=== PATIENT | female | born 1955 | race Caucasian/White ===

== ENCOUNTER 2018-02-11 12:00 | Outpatient (REF) | payer MEDICAID, SELFPAY ==
[2018-02-11 22:20] LABS: TSH 2.56 uIU/mL (0.358-3.74)
== END 2018-02-11 12:20 ==
LOC: NCHCN 12:00
PROVIDERS: PCP Internal Medicine; Visit Provider Internal Medicine
DX: R53.83 Other fatigue (principal)
CPT/HCPCS: 84436; 84439; 84443

== ENCOUNTER 2018-03-26 09:13 | Outpatient (REF) | payer MEDICAID, SELFPAY ==
[2018-03-26 13:54] LABS: Anion Gap 10.1 mmol/L (3-11); BUN 14 mg/dL (7-18); CO2 28.9 mmol/L (21.0-32.0); CREATININE 1.07 mg/dL (0.55-1.02); Calcium 9.2 mg/dL (8.5-10.1); Chloride 102 mmol/L (98-107); Estimated GFR 51.63 (mL/min/1.73m2); Glucose 129 mg/dL (70-100); Potassium 3.8 mmol/L (3.5-5.1); Sodium 141 mmol/L (136-145); TSH 0.03 uIU/mL (0.358-3.74)
[2018-03-27 16:10] LABS: T3,Free 8.2 pg/ml (2.8-5.3)
[2018-03-28 11:34] LABS: Hepatitis C Ab w Rflx HCV PCR Negative (NEGAT)
== END 2018-03-26 09:33 ==
LOC: NCHCN 09:13
PROVIDERS: PCP Internal Medicine; Visit Provider Internal Medicine
DX: E03.9 Hypothyroidism, unspecified (principal); I48.0 Paroxysmal atrial fibrillation; Z11.59 Encounter for screening for other viral diseases; Z00.00 Encounter for general adult medical examination without abnormal findings
CPT/HCPCS: 80048; 86803; 84439; 84443; 84481

== ENCOUNTER 2018-04-24 01:52 | Outpatient (CLI) | payer MEDICAID, SELFPAY ==
--- NOTE | 2018-04-24 09:39 | DI.COMBO_ITS ---
SYMPTOM/DIAGNOSIS: LT BREAST LUMP, DIAGNOSTIC LEFT MAMMOGRAM AND LEFT BREAST ULTRASOUND: Mammograms were interpreted according to the usual protocol including computer analysis with CAD system, tomosynthesis and C view imaging. Comparison is made with prior examinations. Breast density, category B. There are multiple, well circumscribed, round nodules scattered in the left breast. These appear stable. No areas of architectural distortion or suspicious microcalcifications are seen. The skin and axilla are unremarkable. A left breast ultrasound was performed of the upper outer quadrant. There are multiple simple cysts scattered throughout the left breast. The largest measures 2.2 cm. and corresponds to the palpable abnormality. No suspicious solid masses are seen sonographically. IMPRESSION: No evidence for malignancy. Yearly mammography is recommended. Category 2. The findings were discussed with the patient on the date of the examination. MQSA ASSESSMENT OF FINDINGS: Negative with benign findings. Category 2. Patient will receive a letter notifying them of these results. BI-RADS category B. There are scattered areas of fibroglandular density.
== END 2018-04-24 02:12 ==
PROVIDERS: PCP Internal Medicine; Visit Provider Nurse Practitioner
DX: N63.21 Unspecified lump in the left breast, upper outer quadrant (principal); N60.12 Diffuse cystic mastopathy of left breast
CPT/HCPCS: 76642; 77061; 77065; G0279

== ENCOUNTER 2018-11-27 14:12 | Outpatient (REF) | payer MEDICARE, MEDICAID, SELFPAY ==
[2018-11-27 21:41] LABS: ALT 30 U/L (12-78); AST 18 U/L (15-37); Alkaline Phosphatase 88 U/L (46-116); Anion Gap 8.8 mmol/L (3-11); BUN 16 mg/dL (7-18); Bilirubin, Total 0.2 mg/dL (0.2-1.0); CO2 29.2 mmol/L (21.0-32.0); CREATININE 0.96 mg/dL (0.55-1.02); Calcium 9.3 mg/dL (8.5-10.1); Chloride 101 mmol/L (98-107); Estimated GFR 58.33 (mL/min/1.73m2); Glucose 98 mg/dL (70-100); Potassium 4.2 mmol/L (3.5-5.1); Sodium 139 mmol/L (136-145); Total Protein 8.1 g/dL (6.4-8.2)
[2018-11-27 22:14] LABS: FREE T4 0.33 ng/dL (0.76-1.46)
== END 2018-11-27 14:32 ==
LOC: NCHCN 14:12
PROVIDERS: PCP Internal Medicine; Visit Provider Family Medicine
DX: E03.9 Hypothyroidism, unspecified (principal)
CPT/HCPCS: 80053; 84439; 84443

== ENCOUNTER 2018-12-07 02:13 | Outpatient (CLI) | payer MEDICARE, SELFPAY ==
--- NOTE | 2019-01-08 12:48 | CER_ITS ---
DATE OF DICTATION: January 08, 2019 [place] [facility] RN REPORT INDICATION: Paroxysmal atrial fibrillation. MONITORING PERIOD: December 07, 2018 to January 05, 2019 Baseline shows sinus rhythm. There were 0 critical events, 0 serious events. 13 stable events. Manually-detected events with patient symptoms of flutter or skipped beat, occasionally corresponding to sinus rhythm with PVC's. Some symptoms, such as chest pain or pressure, corresponding predominantly to sinus rhythm. No significant bradyarrhythmias or pauses. One episode of atrial flutter/coarse atrial fibrillation noted on day 17. Overall AFib/flutter burden 1%. No significant non-sustained ventricular tachycardia events.
== END 2018-12-07 02:33 ==
PROVIDERS: PCP Internal Medicine; Visit Provider Family Medicine
DX: I48.0 Paroxysmal atrial fibrillation (principal)
CPT/HCPCS: 93270

== ENCOUNTER 2018-12-21 16:07 | Emergency (ER) | payer MEDICARE, SELFPAY ==
[2018-12-21] VITALS (62 sets, daily range): BP systolic 136–170; BP diastolic 69–89; PULSE 89–116; RESP 9–25; TEMP 36.5–36.6; O2SAT 92–100
--- NOTE | 2018-12-21 16:47 | ED.GENADUL_ITS ---
Discharge Plan Disposition Patient Disposition: HOME Discharge Details Chief Complaint: Dizzy/Sync Clinical Impression: Medication overdose Primary Care Provider: Ezequiel Vieira ED Provider: Jose Hebert Home Meds and New Rx's Prescriptions: New liothyronine 25 mcg tablet 25 mcg PO DAILY Qty: 30 RF: 0 Continued buspirone 10 MG tablet 10 mg PO BID RF: 0 hydrochlorothiazide 12.5 MG capsule 12.5 mg PO DAILY RF: 0 diltiazem HCl 240 MG capsule,ext.rel 24h degradable 480 mg PO DAILY RF: 0 lorazepam 0.5 MG tablet 0.5 mg PO BID RF: 0 amitriptyline 25 MG tablet 1 tab PO HS RF: 0 Discontinued liothyronine 25 MCG tablet 37.5 mcg PO DAILY RF: 0 Discharge Instructions Additional Instructions: Please hold your dose of liothyronine tomorrow. Call your doctor tomorrow to discuss plan for ongoing thyroid hormone therapy. Regarding your chest pain -- Please also discuss arranging outpatient stress test with your doctor. Ideally this test is performed within the next 72 hours. Rest at home with no exertional activities. Avoid caffeinated products. Please contact your primary care physician to arrange follow-up. Return to the ER for any worsening or new concerning symptoms. Referrals: Ezequiel Vieira MD [Primary Care Provider] - Discharge Data Discharge Date/Time-TO BE ENTERED AT DEPARTURE: 12/21/18 22:55 Medical Decision Making 17:00 --63-year-old female with history of hypothyroidism and atrial fibrillati on, here with elevated heart rate and elevated blood pressure from her baseline. Patient is currently hypertensive and tachycardic. She notes she has been feeling that her heart rates elevated in the past few days. She also notes increased intermittent palpitations over the past couple weeks. Of note she did increase the dose of her levo by running from 25mg to 37-50 mg a few weeks ago. I suspect she is taking too much of her synthetic thyroid hormone which is resulting in elevated blood pressure and heart rate. Consider other etiologies. I will obtain CBC to assess for anemia, chemistry to assess for electrolyte abnormalities, and will check TSH. Patient also with recent intermittent right upper chest discomfort. Consider ACS. ECG was reviewed and interpreted by me: Sinus tachycardia 108 bpm, normal axis, occasional PVC. No STEMI. Nondiagnostic. --Labs reviewed initial troponin negative. TSH is depressed. I suspect patient is taking too much of her thyroid hormone. --Delta troponin at 3 hours negative and unchanged. Patient remains asymptomatic. Heart rate improved. Blood pressure improved. Plan is for patient to follow-up with PCP. She will require a stress test I do the next 72 hours. I have instructed her to call her primary care physician tomorrow to discuss medication adjustment and help arrange outpatient stress test. She was encouraged to return immediately for any worsening or new concerning symptoms. I specifically instructed her to not take her thyroid hormone tomorrow and then to continue a single 25 mg tablet the following day and daily thereafter until able to discuss ongoing dosing with primary care physician. HPI General Mode of arrival: ambulatory . Date/Time Provider Initiated Documentation: 12/21/18 16:27 . Limitations to Documentation: no limitations . Information obtained by: patient . HPI Narrative: 63-year-old female with history of hypothyroidism, atrial fibrillation, here with chief complaint of elevated heart rate. Patient notes that she has had elevated heart rate over the past several days. She states she has been noticing increased palpitations over the past several weeks. She has seen her primary care physician for this and has had a Holter monitor. Patient notes now blood pressure is elevated as well as heart rate. Her heart rate is usually in the 80s to 90s and she is noticed over the past several days it has been in the 110s-120s. Patient also notes some right upper anterior chest ache that is been intermittent today. Ache is described as faint. No associated shortness of breath. No associated leg swelling or calf pain. No modifiers. Patient denies abdominal pain. No fevers. No dysuria. No cough. No rash. Patient does note that she increase the dose of her liothyronine - double prior dose - a few weeks ago. Related Data Home Medications Medication Instructions Recorded Confirmed diltiazem HCl 480 mg PO DAILY 11/16/12 12/21/18 lorazepam 0.5 mg PO BID 11/16/12 12/21/18 amitriptyline 1 tab PO HS 04/04/13 12/21/18 buspirone 10 mg PO BID tab-cap 09/05/14 12/21/18 hydrochlorothiazide 12.5 mg PO DAILY tab-cap 09/05/14 12/21/18 liothyronine 25 mcg PO DAILY #30 tab 12/21/18 Previous Rx's Medication Instructions Recorded liothyronine 25 mcg PO DAILY #30 tab 12/21/18 Allergies Allergy/AdvReac Type Severity Reaction Status Date / Time Sulfa (Sulfonamide Allergy Unknown Unverified 12/21/18 16:28 Antibiotics) General Stated Complaint: Dizzy/Sync ELAINE: 2 Review of Systems Review of Systems All systems reviewed & are unremarkable except as noted in HPI and below Constitutional Denies fever(s) Cardiovascular Reports as per HPI Respiratory Reports as per HPI [facility] Medical History Atrial fibrillation (Chronic) Hypothyroidism (Chronic) Social History Smoking/Tobacco Use Status: Never Alcohol Intake: never Drug use: Never Do you feel safe at home: Yes Do you feel safe in your relationship?: Yes Exam Const General: cooperative and no acute distress HENMT Head: normocephalic Mouth: moist mucous membranes Eyes Conjunctivae: normal conjunctivae Sclera: normal sclerae Neck Neck: trachea midline, supple and no JVD Resp Auscultation: clear to auscultation bilaterally, no rales, no rhonchi and no wheezes Cardio Jugular venous pressure: no JVD Rate: tachycardic Rhythm: regular rhythm Heart Sounds: no murmurs GI Palpation: soft, not firm, no guarding, no masses, not rigid and nontender Skin General skin exam: no rashes or lesions noted Neuro General: alert, awake, oriented x3 and tone normal Extrem General: no edema Psych Appearance: grossly normal Mental Status: mental status grossly normal Speech and Movement: speech and movement normal Course Vital Signs Temperature 36.6 C 12/21/18 16:13 Pulse 116 H 12/21/18 16:13 Respiratory Rate 18 12/21/18 16:13 Blood Pressure 169/87 H 12/21/18 16:13 Pulse Oximetry 100 12/21/18 16:13 Temperature 36.6 C 12/21/18 16:13 Temperature Source Temporal Artery Scan 12/21/18 16:13 Pulse 116 H 12/21/18 16:13 Respiratory Rate 18 12/21/18 16:33 Respiratory Effort 12/21/18 16:29 Blood Pressure 169/87 H 12/21/18 16:13 Blood Pressure Position Sitting 12/21/18 16:13 Pulse Oximetry 100 12/21/18 16:13 Oxygen Delivery Method Room Air 12/21/18 16:13 Oxygen Flow Rate 0 12/21/18 16:13 Pain Level 0 12/21/18 16:13
[2018-12-21 17:16] LABS: Abs Immature Grans 0.01 k/cumm (0.0-0.09); Absolute Basophil Count 0.01 k/cumm (0.0-0.2); Absolute Eosinophil Count 0.05 k/cumm (0.0-0.7); Absolute Lymphocyte Count 3.14 k/cumm (1.2-3.4); Absolute Monocyte Count 0.78 k/cumm (0.11-0.7); Basophils % 0.1; Eosinophils % 0.6; HGB 13.7 g/dL (12.0-15.5); Immature Grans % 0.1; Lymphocytes % 37.9; Mean Corp. HGB Concentration 35.1 g/dL (32.0-36.0); Mean Corpuscular Hemoglobin 30.4 pg (27.0-33.0); Mean Corpuscular Volume 86.7 fL (80-95); Mean Platelet Volume 11.3 fL (8.0-11.0); Monocytes % 9.4; Neutrophils % 51.9; Platelet Count 283 x1000/uL (130-400); RBC Distribution Width 12.1 % (11.7-14.6); White Blood Cell Count 8.29 k/cumm (4.4-10.8)
[2018-12-21 17:40] LABS: ALT 24 U/L (14-59); AST 17 U/L (15-37); Albumin 3.9 g/dL (3.4-5.0); Alkaline Phosphatase 85 U/L (46-116); Anion Gap 9.7 mmol/L (3-11); BUN 15 mg/dL (7-18); Bilirubin, Total 0.3 mg/dL (0.2-1.0); CO2 29.3 mmol/L (21.0-32.0); CREATININE 1.04 mg/dL (0.55-1.02); Calcium 9.2 mg/dL (8.5-10.1); Chloride 98 mmol/L (98-107); Estimated GFR 53.18 (mL/min/1.73m2); Glucose 114 mg/dL (70-100); Potassium 3.2 mmol/L (3.5-5.1); Sodium 137 mmol/L (136-145); TSH (W/Ref FT4) 0.08 uIU/mL (0.36-3.74); Total Protein 8.5 g/dL (6.4-8.2); Troponin I < 0.05 ng/mL (0.00-0.06)
[2018-12-21 17:58] LABS: FREE T4 0.24 ng/dL (0.76-1.46)
[2018-12-21 20:45] LABS: Troponin I < 0.05 ng/mL (0.00-0.06)
[2018-12-22 21:25] LABS: T3,Free 5.8 pg/ml (2.8-5.3)
== END 2018-12-21 22:55 | disposition home or self-care (01) ==
PROVIDERS: Emergency Provider Student in an Organized Health Care Education/Training Program; PCP Internal Medicine
DX: T38.1X1A Poisoning by thyroid hormones and substitutes, accidental (unintentional), initial encounter; R03.0 Elevated blood-pressure reading, without diagnosis of hypertension; R00.0 Tachycardia, unspecified; R07.9 Chest pain, unspecified; I48.91 Unspecified atrial fibrillation
CPT/HCPCS: 36415; 80053; 93005; 99285; 83735; 84439; 84443; 84481; 84484; 85025; 93010; 99284

== ENCOUNTER 2019-01-01 16:16 | Outpatient (REF) | payer MEDICARE, SELFPAY ==
[2019-01-01 20:39] LABS: Anion Gap 9.3 mmol/L (3-11); BUN 18 mg/dL (7-18); CO2 26.7 mmol/L (21.0-32.0); CREATININE 1.03 mg/dL (0.55-1.02); Calcium 8.7 mg/dL (8.5-10.1); Chloride 101 mmol/L (98-107); Estimated GFR 53.78 (mL/min/1.73m2); Glucose 120 mg/dL (70-100); Potassium 4.3 mmol/L (3.5-5.1); Sodium 137 mmol/L (136-145)
== END 2019-01-01 16:36 ==
LOC: NCHCN 16:16
PROVIDERS: PCP Internal Medicine; Visit Provider Internal Medicine
DX: E87.6 Hypokalemia (principal); I10 Essential (primary) hypertension
CPT/HCPCS: 80048

== ENCOUNTER 2019-01-08 10:01 | Outpatient (CLI) | payer MEDICARE, SELFPAY | END 2019-01-08 10:21 | PROVIDERS: PCP Internal Medicine; Referring Provider Internal Medicine; Visit Provider Internal Medicine Cardiovascular Disease | DX: I48.0 Paroxysmal atrial fibrillation (principal) | CPT/HCPCS: 93228 ==

== ENCOUNTER 2019-01-22 04:24 | Emergency (ER) | payer MEDICARE, SELFPAY ==
[2019-01-22] VITALS (7 sets, daily range): BP systolic 150–162; BP diastolic 90–104; PULSE 100–119; RESP 11–21; TEMP 37.1; O2SAT 95–99
--- NOTE | 2019-01-22 04:56 | ED.GENADUL_ITS ---
Discharge Plan Disposition Patient Disposition: HOME Condition: Good Discharge Details Chief Complaint: Palpitatns Clinical Impression: Palpitations Primary Care Provider: Ezequiel Vieira ED Provider: Rogelio Villa [place] Meds and New Rx's Prescriptions: Continued buspirone 10 MG tablet 10 mg PO BID RF: 0 hydrochlorothiazide 12.5 MG capsule 12.5 mg PO DAILY RF: 0 diltiazem HCl 240 MG capsule,ext.rel 24h degradable 480 mg PO DAILY RF: 0 lorazepam 0.5 MG tablet 0.5 mg PO BID RF: 0 amitriptyline 25 MG tablet 1 tab PO HS RF: 0 Eliquis 5 mg Tablet 10 mg PO DAILY RF: 0 liothyronine 25 mcg tablet 25 mcg PO DAILY Qty: 30 RF: 0 Discharge Instructions Additional Instructions: Continue your medications as before. Make sure you take your diltiazem this morning. Follow-up with primary care for further management. Return to ED for any lightheadedness, syncope, chest pain, shortness of breath, persistent palpitations. Referrals: Ezequiel Vieira MD [Primary Care Provider] - Medical Decision Making Patient presenting with complaint of palpitations. No associated symptoms. History of A. fib. Reports heart rate 140 at home. Here is 116 and sinus tach. Had a recent visit here 1 month ago with increased heart rate related to possibly increasing her thyroid medication dose. Subsequently back down to previous dosing. Is on Eliquis for A. fib. No report of illness. Doubt PE. No chest pain or tightness. Will check basic labs and give a liter of fluid. H eart rate already slowed down on its own once I informed her that she was not in atrial fibrillation. Suspect some anxiety. Patient's laboratory studies here are fine. She is not anemic. Electrolytes are good. I reviewed her cardiac event report from December. She had some PVCs. One episode of A. fib. She reports that is why she is now on Eliquis. She remains in sinus here heart rates down to 100. She is safe for discharge home to follow-up with primary care. She is on diltiazem which she will take later this morning. Continue her Eliquis. Return to ED for lightheadedness, chest pain, shortness of breath, persistent palpitations. Medical Records Medical records reviewed: Yes I reviewed the patient's medical records. Lab Data Lab results reviewed: Yes I reviewed the patient's lab results. ECG Data Attestation: I personally reviewed and interpreted this ECG (s) as follows: Prior ECG tracings: not available for review Interpretation: Sinus tachycardia rate 116. Normal axis and intervals. No acute ST changes. HPI General Mode of arrival: ambulatory . Date/Time Provider Initiated Documentation: 01/22/19 04:47 . Limitations to Documentation: no limitations . Information obtained by: patient, RN notes reviewed and old records reviewed . HPI Narrative: Patient presents to ED with complaints of palpitations. Patient reports waking up around 3:30 with palpitations. Heart rate at that time was in the 140 range. She presents now for evaluation. She denies having any type of chest pain, pressure, tightness. There is no shortness of breath. She has not been ill. No report of fever, cough, vomiting, diarrhea. She has no leg pain or leg swelling. She is on Eliquis for paroxysmal A. fib. Related Data Home Medications Medication Instructions Recorded Confirmed diltiazem HCl 480 mg PO DAILY 11/16/12 01/22/19 lorazepam 0.5 mg PO BID 11/16/12 01/22/19 amitriptyline 1 tab PO HS 04/04/13 01/22/19 buspirone 10 mg PO BID tab-cap 09/05/14 01/22/19 hydrochlorothiazide 12.5 mg PO DAILY tab-cap 09/05/14 01/22/19 liothyronine 25 mcg PO DAILY #30 tab 12/21/18 01/22/19 Eliquis 10 mg PO DAILY 01/22/19 01/22/19 Previous Rx's Medication Instructions Recorded liothyronine 25 mcg PO DAILY #30 tab 12/21/18 Allergies Allergy/AdvReac Type Severity Reaction Status Date / Time Sulfa (Sulfonamide Allergy Unknown Unverified 01/22/19 04:42 Antibiotics) General Stated Complaint: Palpitatns ELAINE: 2 Review of Systems Review of Systems Narrative: As documented in HPI otherwise negative as below. Const: no fever, chills, weakness Resp: no cough, SOB, pleuritic pain CV: no CP, diaphoresis, edema, syncope GI: no abdominal pain, nausea, vomiting, diarrhea Neuro: no headache, numbness, focal weakness, confusion [facility] Medical History Anxiety (Chronic) Atrial fibrillation (Chronic) HTN (hypertension) (Chronic) Hypothyroidism (Chronic) Social History Smoking/Tobacco Use Status: Never Alcohol Intake: never Drug use: Never Substance use type: does not use Do you feel safe at home: Yes Do you feel safe in your relationship?: Yes Exam Narrative Exam Narrative: Vitals: Afebrile. Heart rate and blood pressure elevated. Pulse oximetry normal on room air. Const: Obese female in NAD. HEENT: NC/AT. Normal facial exam. Eyes: Normal conjunctiva and sclera. Neck: Supple. Trachea midline. Lungs: Normal respiratory effort. Lungs are clear. Cor: RRR without murmur/gallop. Tachy. Good radial pulses. GI: Soft. NT/ND. No guarding or rebound. Neuro: A+O x 3. CN grossly in tact. Good strength and no focal deficit. Ext: No C/C/E. Skin: Warm and dry without rash. Course Vital Signs Vital signs: Vital Signs Temperature 98.8 F 01/22/19 04:39 Pulse 119 H 01/22/19 04:39 Respiratory Rate 21 01/22/19 04:39 Blood Pressure 162/104 H 01/22/19 04:39 Pulse Oximetry 98 01/22/19 04:39 Temperature 98.8 F 01/22/19 04:39 Temperature Source Skin 01/22/19 04:39 Pulse 119 H 01/22/19 04:39 Respiratory Rate 21 01/22/19 04:39 Respiratory Effort 01/22/19 04:43 Blood Pressure 162/104 H 01/22/19 04:39 Blood Pressure Position Supine 01/22/19 04:39 Pulse Oximetry 98 01/22/19 04:39 Oxygen Delivery Method Room Air 01/22/19 04:39 Oxygen Flow Rate 0 01/22/19 04:39 Pain Level 0 01/22/19 04:39
[2019-01-22] MEDS: Normal Saline 1,000 ML 1000 ML IV (05:00)
[2019-01-22 05:25] LABS: Abs Immature Grans 0.02 k/cumm (0.0-0.09); Absolute Basophil Count 0.02 k/cumm (0.0-0.2); Absolute Eosinophil Count 0.14 k/cumm (0.0-0.7); Absolute Lymphocyte Count 3.18 k/cumm (1.2-3.4); Absolute Neutrophil Count 2.78 k/cumm (1.2-6.7); Basophils % 0.3; Eosinophils % 2.1; HCT 37.7 % (36.0-46.0); HGB 13.3 g/dL (12.0-15.5); Immature Grans % 0.3; Lymphocytes % 47.2; Mean Corp. HGB Concentration 35.3 g/dL (32.0-36.0); Mean Corpuscular Hemoglobin 30.5 pg (27.0-33.0); Mean Corpuscular Volume 86.5 fL (80-95); Mean Platelet Volume 10.9 fL (8.0-11.0); Monocytes % 8.9; Neutrophils % 41.2; Platelet Count 227 x1000/uL (130-400); RBC 4.36 m/cumm (4.00-5.20); RBC Distribution Width 12.2 % (11.7-14.6); White Blood Cell Count 6.74 k/cumm (4.4-10.8)
[2019-01-22 05:29] LABS: Anion Gap 9.2 mmol/L (3-11); BUN 23 mg/dL (7-18); CO2 25.8 mmol/L (21.0-32.0); CREATININE 1.05 mg/dL (0.55-1.02); Calcium 8.8 mg/dL (8.5-10.1); Chloride 102 mmol/L (98-107); Glucose 104 mg/dL (70-100); Potassium 3.6 mmol/L (3.5-5.1); Sodium 137 mmol/L (136-145)
== END 2019-01-22 05:55 | disposition home or self-care (01) ==
PROVIDERS: Emergency Provider Emergency Medicine; PCP Internal Medicine
DX: R00.2 Palpitations (principal); I48.91 Unspecified atrial fibrillation; Z79.01 Long term (current) use of anticoagulants; I10 Essential (primary) hypertension
CPT/HCPCS: 36415; 80048; 93005; 96360; 99284; 83735; 85025; 93010

== ENCOUNTER 2019-01-28 19:15 | Emergency (ER) | payer MEDICARE, SELFPAY ==
[2019-01-28] VITALS (13 sets, daily range): BP systolic 144–198; BP diastolic 88–109; PULSE 88–111; RESP 10–20; TEMP 36.7; O2SAT 95–100
--- NOTE | 2019-01-28 20:46 | W.ED.GENAD ---
Discharge Plan Disposition Patient Disposition: HOME Condition: Good Discharge Details Chief Complaint: GenMedical Clinical Impression: Blood pressure check Primary Care Provider: Ezequiel Vieira ED Provider: Grace Herrera Home Meds and New Rx's Prescriptions: No Action buspirone 10 MG tablet 15 mg PO TID RF: 0 hydrochlorothiazide 12.5 MG capsule 12.5 mg PO DAILY RF: 0 lorazepam 0.5 MG tablet 0.5 mg PO BID RF: 0 amitriptyline 25 MG tablet 1 tab PO HS RF: 0 Eliquis 5 mg Tablet 5 mg PO BID RF: 0 carvedilol 3.125 mg Tablet 3.125 mg PO BID RF: 0 potassium chloride 10 mEq Tablet,Er Particles/Crystals 10 meq PO DAILY RF: 0 liothyronine 25 mcg tablet 25 mcg PO DAILY Qty: 30 RF: 0 Discharge Instructions Additional Instructions: Bring your blood pressure cuff to your doctor's appointment tomorrow to have it calibrated. Continue your daily medication. Continue to check your blood pressure 3 times a day as discussed. Eat a balanced diet and drink plenty of fluids. Return to the emergency room for any alarming symptoms, worsening, concerns as discussed if needed sooner Medical Decision Making This is a pleasant 63-year-old woman who presents to the emergency room for concern of elevated blood pressure tonight. Patient was recently changed from diltiazem to carvedilol this week began at once a day dosing x3 days and has titrated up to twice a day dosing for the last 3 days. Patient reports she has been compliant with her blood pressure medication. Patient is anxious about having a new blood pressure medication. Patient reports her blood pressure and heart rate have been quite normal on her weekly blood pressure checks this week. Patient reports this evening when she took her blood pressure was noted to be elevated 200 systolic reported by the patient. Noted to have a heart rate in the 120s. She went to lay down for a few minutes thinking this would improve her blood pressure then rechecked her blood pressure noted to be persistently elevated and she became quite anxious and came to the emergency room. Patient reports she feels mildly fuzzy in her head since checking her blood pressure noting it to be elevated. Otherwise has no obvious hypertensive emergency symptoms at this time. EKG obtained which reveals a heart rate of 99 and sinus rhythm with PVCs. Reviewed with Dr. Colt Price. No ischemic pattern noted. Patient monitored in the emergency room and heart rates improved to 88 and blood pressure also improved. Patient has no persistent symptoms of fuzziness at this time as she is becoming significantly less anxious as her blood pressures have improved over the last hour with no associated treatment. Patient does admit to feeling anxious regarding her blood pressure checks. Patient has a follow-up appoint with her primary care doctor tomorrow which she will go to and has scheduled blood work to obtain prior to her evaluation. Discussed more advanced testing versus follow-up tomorrow in the office. Given patient is asymptomatic and has seen several very normal blood pressures and heart rates in the emergency room she feels comfortable with discharge home at this time. The patient was stable and requested discharge. Prior to discharge, my usual and customary return precautions were reviewed with the patient - this included follow-up instructions and reasons to return to the Emergency Department if conditions worsens, does not improve as expected, or other new concerns arise. HPI General Date/Time Provider Initiated Documentation: 01/28/19 19:19. HPI Narrative: 63-year-old patient presents for blood pressure check. Patient reports she checked her blood pressure at home and it was noted to be elevated. Patient is quite anxious as her blood pressure medication was changed this week after being on the same blood pressure medicine for 6 or 7 years. Patient reports she recently changed from diltiazem to carvedilol. Patient reports she noted her blood pressures for the last week which have been very normal and this evening she noted blood pressure of 200 systolic. Patient noted a heart rate in the 120s. She went to lie down which she typically does when she is noted to have an elevated heart rate which is not atypical for her. She rechecked her blood pressure which was persistently elevated which prompted her evaluation in the emergency room tonight. Patient denies chest pain difficulty breathing shortness of breath or wheezing. Denies strokelike symptoms or headache. Patient reports she is feeling mildly fuzzy but has no specific complaints at this time. Patient is due to see her primary care doctor tomorrow and has lab evaluation tomorrow ahead of her appointment Related Data Home Medications Medication Instructions Recorded Confirmed lorazepam 0.5 mg PO BID 11/16/12 01/28/19 amitriptyline 1 tab PO HS 04/04/13 01/28/19 buspirone 15 mg PO TID tab-cap 09/05/14 01/28/19 hydrochlorothiazide 12.5 mg PO DAILY tab-cap 09/05/14 01/28/19 liothyronine 25 mcg PO DAILY #30 tab 12/21/18 01/28/19 Eliquis 5 mg PO BID 01/22/19 01/28/19 carvedilol 3.125 mg PO BID 01/28/19 01/28/19 potassium chloride 10 meq PO DAILY 01/28/19 01/28/19 Previous Rx's Medication Instructions Recorded liothyronine 25 mcg PO DAILY #30 tab 12/21/18 Allergies Allergy/AdvReac Type Severity Reaction Status Date / Time Sulfa (Sulfonamide Allergy Unknown Unverified 01/28/19 19:34 Antibiotics) General Stated Complaint: GenMedical ELAINE: 2 Review of Systems Review of Systems ROS Unobtainable: All systems reviewed & are unremarkable except as noted in HPI and below Constitutional Constitutional: Denies excessive sweating, Denies fatigue, Denies headache(s) and Denies weakness ENT Ears, Nose, Mouth, and Throat: Denies dizziness and Denies headache(s) Cardiovascular Cardiovascular: Denies chest pain, Denies diaphoresis, Denies syncope, Denies rapid heart rate, Denies irregular heart rhythm, Denies palpitations, Denies dyspnea and Denies dyspnea on exertion Respiratory Respiratory: Denies dyspnea and Denies dyspnea on exertion Gastrointestinal Gastrointestinal: Denies nausea and Denies vomiting Musculoskeletal Musculoskeletal: Denies numbness Neurologic Neurologic: Denies confusion, Denies dizziness, Denies syncope, Denies headache(s), Denies numbness and Denies weakness Psychiatric Psychiatric: Denies confusion Endocrine Endocrine: Denies excessive sweating, Denies fatigue and Denies palpitations [facility] Medical History Anxiety (Chronic) Atrial fibrillation (Chronic) HTN (hypertension) (Chronic) Hypothyroidism (Chronic) Social History Smoking/Tobacco Use Status: Never Alcohol Intake: never Drug use: Never Substance use type: does not use Do you feel safe at home: Yes Do you feel safe in your relationship?: Yes Exam Narrative Exam Narrative: CONST: Healthy appearing patient, in no acute distress. Well hydrated. Alert and alert. EYES: General normal appearance. Alignment normal. Eyelids normal. Conjunctiva normal. NECK: Normal visual inspection. FROM. Trachea midline. No Midline tenderness. CHEST: Normal insepection of the chest. RESP: Normal respiratory effort. Speaking full sentences. No cough. No audible wheezing. No retractions. Breath sounds are clear and equal bilaterally CARDIO: No JVD. No murmurs or rubs MUSCULOSKELETAL: Normal Gait. FROM of all extremities. No lower leg swelling SKIN: Normal. Dry. No rashes. NEURO: Alert and awake. Speech clear. PSYCH: Normal affect. Cooperative. Course Vital Signs Vital signs: Vital Signs Temperature 36.7 C 01/28/19 19:20 Pulse 111 H 01/28/19 19:20 Respiratory Rate 20 01/28/19 19:20 Blood Pressure 198/109 H 01/28/19 19:20 Pulse Oximetry 100 01/28/19 19:20 Temperature 36.7 C 01/28/19 19:20 Temperature Source Skin 01/28/19 19:20 Pulse 88 01/28/19 20:31 Pulse 93 H 01/28/19 20:31 Respiratory Rate 13 01/28/19 20:31 Respiratory Effort 01/28/19 19:28 Respiratory Depth Normal 01/28/19 19:26 Respiratory Pattern Normal 01/28/19 19:26 Blood Pressure 161/88 H 01/28/19 20:31 Blood Pressure Mean 106 01/28/19 20:31 Pulse Oximetry 96 01/28/19 20:31 Oxygen Delivery Method Room Air 01/28/19 20:01 Oxygen Flow Rate 0 01/28/19 20:01 Pain Level 0 01/28/19 19:20
== END 2019-01-28 20:54 | disposition home or self-care (01) ==
PROVIDERS: Emergency Provider Physician Assistant; PCP Internal Medicine
DX: I10 Essential (primary) hypertension (principal); F41.9 Anxiety disorder, unspecified; I48.91 Unspecified atrial fibrillation; Z79.01 Long term (current) use of anticoagulants
CPT/HCPCS: 93005; 99283; 93010

== ENCOUNTER 2019-01-29 11:20 | Outpatient (REF) | payer MEDICARE, MEDICAID, SELFPAY ==
[2019-01-29 21:33] LABS: FREE T4 0.27 ng/dL (0.76-1.46); TSH 4.91 uIU/mL (0.36-3.74)
[2019-01-31 17:22] LABS: T3,Free 7.7 pg/ml (2.8-5.3)
== END 2019-01-29 11:40 ==
LOC: NCHCN 11:20
PROVIDERS: PCP Internal Medicine; Visit Provider Internal Medicine
DX: E03.9 Hypothyroidism, unspecified (principal)
CPT/HCPCS: 84439; 84443; 84481

== ENCOUNTER 2019-02-08 01:40 | Outpatient (CLI) | payer MEDICARE, SELFPAY ==
--- NOTE | 2019-02-08 16:50 | DI.DEXA_ITS ---
EXAM: XR DEXA BONE DENSITY W/WO THOMPSON INDICATION: MENOPAUSAL STATE Z78.0. COMPARISON: No exams were available for comparison TECHNIQUE: The exam was performed according to the usual protocol. FINDINGS: The THOMPSON image shows no evidence of compression fractures. The bone mineral density measurements of the left hip correspond to a total T-score of -0.4 and a femoral neck T-score of -1.2, in the osteope hermann range. Bone mineral density measurements of the lumbar spine correspond to a total T-score of -2 .2, in the osteopenic range. The left forearm bone mineral density measurements correspond to a T-sc ore in the distal 3rd of -1.1 also in the osteopenic range. IMPRESSION: Osteopenia of the lumbar spine, left hip and left forearm.
== END 2019-02-08 02:00 ==
PROVIDERS: PCP Internal Medicine; Visit Provider Internal Medicine
DX: Z78.0 Asymptomatic menopausal state (principal); M85.88 Other specified disorders of bone density and structure, other site
CPT/HCPCS: 77080

== ENCOUNTER 2019-05-21 10:48 | Outpatient (REF) | payer MEDICARE, SELFPAY ==
[2019-05-21 14:20] LABS: FREE T4 0.39 ng/dL (0.76-1.46); TSH 2.25 uIU/mL (0.36-3.74)
== END 2019-05-21 11:08 ==
LOC: NCHCN 10:48
PROVIDERS: PCP Internal Medicine; Visit Provider Internal Medicine
DX: E03.9 Hypothyroidism, unspecified (principal); F41.9 Anxiety disorder, unspecified; I48.0 Paroxysmal atrial fibrillation; I10 Essential (primary) hypertension
CPT/HCPCS: 84439; 84443; 84481

== ENCOUNTER 2020-05-15 15:54 | Outpatient (REF) | payer MEDICARE, MEDICAID, SELFPAY ==
[2020-05-15 13:57] LABS: Anion Gap 6.5 mmol/L (3-11); BUN 12 mg/dL (7-18); CO2 28.5 mmol/L (21.0-32.0); CREATININE 0.87 mg/dL (0.55-1.02); Calcium 8.9 mg/dL (8.5-10.1); Chloride 102 mmol/L (98-107); FREE T4 0.24 ng/dL (0.76-1.46); Glucose 106 mg/dL (74-106); Sodium 137 mmol/L (136-145); TSH 4.43 uIU/mL (0.36-3.74)
[2020-05-16 16:55] LABS: T3, Total 261 ng/dL (97-169)
== END 2020-05-15 16:14 ==
LOC: NCHCN 15:54
PROVIDERS: PCP Internal Medicine; Visit Provider Internal Medicine
DX: E03.9 Hypothyroidism, unspecified (principal); I10 Essential (primary) hypertension
CPT/HCPCS: 80048; 84439; 84443; 84480

== ENCOUNTER 2020-05-29 01:27 | Outpatient (CLI) | payer MEDICARE, MEDICAID, SELFPAY ==
--- NOTE | 2020-05-29 15:20 | DI.MAMMO_ITS ---
EXAM: MG MAMMO SCREENING CLINICAL HISTORY: SCREENING, Z12.39 TECHNIQUE: Bilateral full field digital CC and MLO mammographic images were obtained with 3D tomosyn thesis and utilizing computer aided detection (CAD). COMPARISON: Available for comparison. FINDINGS: Masses/Architectural Distortion: There are multiple well-circumscribed nodules in both breasts. Ther e are now 2 large well-circumscribed nodules in the medial aspect of the left breast. They measure 2 .1 cm and 3 cm. Microcalcifications: No suspicious pleomorphic-type are seen. Skin Thickening/Nipple Retraction: None. IMPRESSION: 1. Two large well-circumscribed nodules in the medial left breast. 2. Left breast ultrasound is requested for further evaluation. BI-RADS Category 0 - Assessment Incomplete: Need additional imaging evaluation Breast Density - Category B - Scattered areas of fibroglandular density Breast density category C or D implies that the patient has dense breast tissue. Dense breast tissue is very common and is not abnormal but dense breast tissue can make it harder to find cancer on a ma mmogram. Also, dense breast tissue may increase their breast cancer risk. This information about the result of the mammogram report was provided to the patient to raise their awareness. Use this report when you speak with the patient about their risks for breast cancer, which includes their family hist ory. At that time, you may recommend for more screening tests (Ultrasound or MRI) as they might be us eful based on their risk. A negative radiographic report should not delay biopsy if a dominant or clinically suspicious mass is present. Up to ten percent of cancers are not identified on mammography. A negative report may reinforce clinical impression. Adenosis and dense breasts may obscure an underlying neoplasm. False positive reports average 6 to 10%. Patient will receive a letter notifying them of these results.
== END 2020-05-29 01:28 | disposition home or self-care (01) ==
LOC: DI 01:28
PROVIDERS: PCP Internal Medicine; Visit Provider Internal Medicine
DX: Z12.31 Encounter for screening mammogram for malignant neoplasm of breast (principal); N63.20 Unspecified lump in the left breast, unspecified quadrant; N63.21 Unspecified lump in the left breast, upper outer quadrant
CPT/HCPCS: 77063; 77067

== ENCOUNTER 2020-06-02 02:56 | Outpatient (CLI) | payer MEDICARE, MEDICAID, SELFPAY ==
--- NOTE | 2020-06-02 | DI.US_ITS ---
EXAM: US BREAST LT LIMITED CLINICAL HISTORY: F/U MAMMO, TWO LARGE NODULES MEDIAL LT BREAST TECHNIQUE: Ultrasound right breast performed using standard protocol. COMPARISON: MG MG mammo diagnostic UNI from 04/24/2018 MG MG MAMMO SCREENING from 05/29/2020 MG MG MAMMO SCREENING from 05/29/2020 FINDINGS: The circumscribed nodules seen on mammogram correspond to simple appearing cysts. The largest measur es 2.9 cm in greatest dimension and is located at the 10 o'clock position 3 cm from the nipple. The 2nd nodule is measures 2.1 cm in maximal dimension is located at the 9 o'clock position 3 centimeters from the nipple. Other smaller cysts are seen. No suspicious masses or ductal dilatation is seen. IMPRESSION: Multiple cysts. No sonographically suspicious finding. BI-RADS Category 2 - Benign Findings Bilateral screening mammography is recommended in 1 year. DATA REPOSITORY:
== END 2020-06-02 02:57 ==
LOC: DI 02:56
PROVIDERS: PCP Internal Medicine; Visit Provider Internal Medicine
DX: R92.8 Other abnormal and inconclusive findings on diagnostic imaging of breast (principal); N60.02 Solitary cyst of left breast
CPT/HCPCS: 76642

== ENCOUNTER 2021-03-12 11:39 | Emergency (ER) | payer MEDICARE, MEDICAID, SELFPAY ==
[2021-03-12 11:53] VITALS: BP 153/96; PULSE 107; RESP 16; TEMP 37.6; O2SAT 97
[2021-03-12] MEDS: Bacitracin 1 PACKET (13:48)
[2021-03-12 13:50] VITALS: BP 153/96; PULSE 107; RESP 16; TEMP 37.6; O2SAT 97
--- NOTE | 2021-03-12 16:28 | ED.GENADUL_ITS ---
Discharge Plan Disposition Patient Disposition: HOME Condition: Stable Discharge Details Clinical Impression: Laceration Primary Care Provider: Ezequiel Vieira ED Provider: Scarlett Hebert Home Meds and New Rx's Prescriptions: Continued lorazepam 0.5 MG tablet 0.5 mg PO BID RF: 0 amitriptyline 25 MG tablet 1 tab PO HS RF: 0 Eliquis 5 mg Tablet 5 mg PO BID RF: 0 carvedilol 3.125 mg Tablet 3.125 mg PO BID RF: 0 liothyronine 25 mcg tablet 25 mcg PO DAILY Qty: 30 RF: 0 fluoxetine 20 mg capsule 20 mg PO DAILY RF: 0 hydrochlorothiazide 12.5 mg tablet 12.5 mg PO DAILY RF: 0 Discharge Instructions Instructions: Laceration (ED) Additional Instructions: Please return immediately to the emergency department if you develop any new or worsening symptoms, if your condition does not improve as expected, or if you become otherwise concerned. It is extremely important that you call soon as possible to make an appointment to be seen in follow-up for this visit by your primary care doctor. You will need to have your sutures removed in 10 days as we discussed. Referrals: Ezequiel Vieira MD [Primary Care Provider] - Discharge Data Discharge Date/Time-TO BE ENTERED AT DEPARTURE: 03/12/21 13:49 Medical Decision Making Roselia Kaur is a 65 y/o woman who presented to the ED with laceration to left hand just proximal to the 2nd MCP. On exam there is no bony TTP of the hand including the 2nd MCP joint, full painless ROM all digits, normal sensation of the 2nd digit. Digit/hand NVI. Doubt fx. Discussed xray with Pt for r/o fx. Pt declines, states pain is minimal and no difficulty ranging. Exam/hx at this time not c/w foreign body, neurovascular injury. Laceration irrigated copiously under pressure, repaired (see lac note). I had a discussion with Patient regarding return to emergency department precautions, home care, and importance of outpatient follow-up. Pt verbalizes understanding of the plan and is amenable. Patient discharged to home with clear plan for outpatient follow-up. All questions were answered. Disposition decision was made weighing the risks and benefits of hospitalization versus outpatient treatment, the risk for further decompensation, and the patient's wishes. HPI General Mode of arrival: ambulatory . Date/Time Provider Initiated Documentation: 03/12/21 11:56 . Limitations to Documentation: no limitations . Information obtained by: patient, RN notes reviewed and old records reviewed . HPI Narrative: Roselia Kaur is a 65 y/o woman with h/o afib, HTN presenting to the emergency department with laceration. Pt reports that just prior to arrival she was throwing wood into shoot when she closed the shoot door and it hit her hand. Sustained lac to left hand, dorsolateral surface just proximal to 2nd MCP joint. No other injury. Pt denies any pain other surface pain at site of lac. No pain with ranging digits, no decreased ROM. Denies numbness or weakness. Denies any other symptoms, was previously in her usual state of health. Tetanus UTD. Related Data Home Medications Medication Instructions Recorded Confirmed lorazepam 0.5 mg PO BID 11/16/12 03/12/21 amitriptyline 1 tab PO HS 04/04/13 03/12/21 liothyronine 25 mcg PO DAILY #30 tab 12/21/18 03/12/21 Eliquis 5 mg PO BID 01/22/19 03/12/21 carvedilol 3.125 mg PO BID 01/28/19 03/12/21 fluoxetine 20 mg PO DAILY 03/12/21 03/12/21 hydrochlorothiazide 12.5 mg PO DAILY 03/12/21 03/12/21 Previous Rx's Medication Instructions Recorded liothyronine 25 mcg PO DAILY #30 tab 12/21/18 Allergies Allergy/AdvReac Type Severity Reaction Status Date / Time Sulfa (Sulfonamide Allergy Intermediate Swelling/Ed Unverified 03/12/21 11:57 Antibiotics) soha General Stated Complaint: Laceration ELAINE: 2 Review of Systems Narrative: Constitutional: denies fevers Eyes: denies eye pain ENT: denies ear pain, dental pain, sore throat Cardiovascular: denies chest pain Respiratory: denies SOB, cough GI: denies abdominal pain, vomiting, diarrhea : denies flank pain MSK: denies back pain, neck pain, arthralgias, myalgias Skin: denies rash, reports hand wound as above Neuro: denies headaches, numbness, weakness PFSH Active Problem List (Updated 03/12/21 @ 13:43 by Scarlett Hebert MD) Laceration (Acute) Discomfort of vulva (Acute) Hypothyroidism (Chronic) Medical History (Updated 03/12/21 @ 13:43 by Scarlett Hebert MD) Anxiety Atrial fibrillation HTN (hypertension) Surgical History (Updated 07/18/20 @ 12:57 by Dianna Simms MD) H/O breast surgery Family History (Updated 07/18/20 @ 12:58 by Dianna Simms MD) Other Cancer Heart disease Hypertension Social History Smoking/Tobacco Use Status: Never Smoking risk assessment performed?: Yes Alcohol Intake: never Drug use: Never Substance use type: does not use Do you feel safe at home: Yes Do you feel safe in your relationship?: Yes Female Reproductive History Menstrual Menopause type: natural (11/2008) History History 5 Para 3 Hx # Term Pregnancies 3 Multiple births Hx # Pregnancies Ectopic pregnancies AB induced Hx Number of Living Children 3 AB spontaneous 2 Exam Narrative Exam Narrative: Constitutional: well and [id number], pleasant, conversing normally HENT: head atraumatic/normocephalic/normal inspection, mucous membranes moist Eyes: conjunctiva normal, sclera normal, pupils 3mm b/l Neck: no stridor, normal ROM, trachea midline Resp: normal work of breathing Cardio: normal rate, normal rhythm, radial pulses intact and symmetric Skin: warm, dry, normal color, no rash Neuro: alert, not altered, grossly non-focal, normal tone Ext: no edema, 2cm superficial laceration left hand just proximal to 2nd MCP on dorsolateral surface, no apparent contamination, normal distal sensation, no TTP/crepitus over MCP joints, full ROM all digits, brisk cap refill Psych: normal mood, normal affect, normal behavior Course Vital Signs Vital signs: Vital Signs Temperature 37.6 C 03/12/21 11:53 Pulse 107 H 03/12/21 11:53 Respiratory Rate 16 03/12/21 11:53 Blood Pressure 153/96 H 03/12/21 11:53 Pulse Oximetry 97 03/12/21 11:53 Temperature 37.6 C 03/12/21 13:50 Temperature Source Skin 03/12/21 11:53 Pulse 107 H 03/12/21 13:50 Respiratory Rate 16 03/12/21 13:50 Respiratory Effort Non-Labored 03/12/21 11:53 Blood Pressure 153/96 H 03/12/21 13:50 Blood Pressure Position Sitting 03/12/21 11:53 Pulse Oximetry 97 03/12/21 13:50 Oxygen Delivery Method Room Air 03/12/21 11:53 Oxygen Flow Rate 0 03/12/21 11:53 Pain Level 2 03/12/21 13:50 Procedures Laceration Laceration 1: Site: hand Side (If applicable): left Size (cm): 2 Description: linear and clean Depth: simple, single layer Local Anesthetic: Lidocaine 1% Amount of anesthesia used (mL): 5 Pre-repair: wound explored, irrigated extensively and deep structures intact Skin layer closed with: nylon Size (cm): 4-0 Technique: simple, interrupted
== END 2021-03-12 13:49 | disposition home or self-care (01) ==
PROVIDERS: Emergency Provider Student in an Organized Health Care Education/Training Program; PCP Internal Medicine
DX: S61.412A Laceration without foreign body of left hand, initial encounter (principal); W26.8XXA Contact with other sharp object(s), not elsewhere classified, initial encounter
CPT/HCPCS: 12001

== ENCOUNTER 2021-03-22 09:31 | Emergency (ER) | payer MEDICARE, MEDICAID, SELFPAY ==
--- NOTE | 2021-03-22 09:34 | ED.GENADUL_ITS ---
Discharge Plan Disposition Patient Disposition: HOME Condition: Stable Discharge Details Clinical Impression: Visit for suture removal Primary Care Provider: Ezequiel Vieira ED Provider: Zoe Ulloa Home Meds and New Rx's Prescriptions: Continued lorazepam 0.5 MG tablet 0.5 mg PO BID RF: 0 amitriptyline 25 MG tablet 1 tab PO HS RF: 0 Eliquis 5 mg Tablet 5 mg PO BID RF: 0 carvedilol 3.125 mg Tablet 3.125 mg PO BID RF: 0 liothyronine 25 mcg tablet 25 mcg PO DAILY Qty: 30 RF: 0 fluoxetine 20 mg capsule 20 mg PO DAILY RF: 0 hydrochlorothiazide 12.5 mg tablet 12.5 mg PO DAILY RF: 0 Discharge Instructions Instructions: Stitches Removal (ED) Additional Instructions: Keep wound clean and dry. Cover wound with bandage if risk of contamination or injury. Otherwise you can keep the wound open to air if resting at home to allow edges to dry and heal. Follow up with your primary care doctor in 1 week as needed. Return to the emergency department with any worsening or new concerning symptoms. Discharge Data Discharge Date/Time-TO BE ENTERED AT DEPARTURE: 03/22/21 09:59 Discharge Physician: Zoe Ulloa Medical Decision Making 65-year-old female presents for suture removal of left hand laceration sustained 10 days ago when shut a door on her hand. Procedure note from ED visit did not indicate the number of sutures placed but patient states she had 5 sutures placed. Sutures appear intact and wound is healing well. There are no signs of cellulitis. 5 sutures removed by nursing. Wound was dressed and patient was instructed on proper wound care including recommendations for covering wound if risk of contamination or injury as the wound is still healing and new. Usual and customary return precautions given prior to discharge. Medical Records Medical records reviewed: Yes I reviewed the patient's medical records. HPI General Mode of arrival: ambulatory . Date/Time Provider Initiated Documentation: 03/22/21 09:32 . Limitations to Documentation: no limitations . Information obtained by: patient . HPI Narrative: Patient is a 65-year-old female who presents for suture removal of left hand after sutures placed 10 days ago when she accidentally shut a door on her hand sustaining a laceration. She states she had 5 sutures placed. She states the wound has been healing well without signs of infection. States she was not treated with antibiotics. Related Data Home Medications Medication Instructions Recorded Confirmed lorazepam 0.5 mg PO BID 11/16/12 03/22/21 amitriptyline 1 tab PO HS 04/04/13 03/22/21 liothyronine 25 mcg PO DAILY #30 tab 12/21/18 03/22/21 Eliquis 5 mg PO BID 01/22/19 03/22/21 carvedilol 3.125 mg PO BID 01/28/19 03/22/21 fluoxetine 20 mg PO DAILY 03/12/21 03/22/21 hydrochlorothiazide 12.5 mg PO DAILY 03/12/21 03/22/21 Previous Rx's Medication Instructions Recorded liothyronine 25 mcg PO DAILY #30 tab 12/21/18 Allergies Allergy/AdvReac Type Severity Reaction Status Date / Time Sulfa (Sulfonamide Allergy Intermediate Swelling/Ed Unverified 03/22/21 09:41 Antibiotics) soha General ELAINE: 2 Review of Systems All systems reviewed & are unremarkable except as noted in HPI and below PFSH Active Problem List (Updated 03/22/21 @ 09:53 by Zoe Ulloa DO) Laceration (Acute) Visit for suture removal (Acute) Discomfort of vulva (Acute) Hypothyroidism (Chronic) Medical History (Updated 03/22/21 @ 09:53 by Zoe Ulloa DO) Anxiety Atrial fibrillation HTN (hypertension) Surgical History (Updated 07/18/20 @ 12:57 by Dianna Simms MD) H/O breast surgery Family History (Updated 07/18/20 @ 12:58 by Dianna Simms MD) Other Cancer Heart disease Hypertension Social History Smoking/Tobacco Use Status: Never Smoking risk assessment performed?: Yes Alcohol Intake: never Drug use: Never Substance use type: does not use Do you feel safe at home: Yes Do you feel safe in your relationship?: Yes Female Reproductive History Menstrual Menopause type: natural (11/2008) History History 5 Para 3 Hx # Term Pregnancies 3 Multiple births Hx # Pregnancies Ectopic pregnancies AB induced Hx Number of Living Children 3 AB spontaneous 2 Exam Const General: cooperative, healthy appearing and no acute distress HENMT Head: normal to inspection Mouth: oral mucosae normal Eyes General: appearance normal, both eyes and all related structures Neck Neck: normal visual inspection Resp Effort & Inspection: normal respiratory effort and able to speak in complete sentences Cardio Rate: regular rate Skin General skin exam: no rashes or lesions noted Neuro General: patient alert, patient awake and patient oriented x3 Motor: muscle tone normal throughout Extrem Other: [address] medial base of L 2nd finger. There is no s urrounding edema, erythema, ecchymosis, drainage or bleeding. Normal range of motion. Psych Appearance: grossly normal Affect: normal affect
[2021-03-22 09:36] VITALS: BP 134/71; PULSE 87; RESP 14; TEMP 36.3; O2SAT 98
--- OUTSIDE RECORDS SUMMARY | 2021-03-22 10:39 | XMS_ITS ---
:1955 Author Care Team Providers Name Role Phone DR. AGNIESZKA CAMPOS Primary Care Provider [phone] DR[address] AGNIESZKA CAMPOS Referring Provider [phone] Allergies Code Code System Name Reaction Severity Status Onset Sulfa ? ? Active ? (Sulfonamid e Antibiotics ) Medications Name Status Start Date Stop Date ? ? amitriptyline 25 mg tablet Active 10/08/2018 Not a vailable Take 1 tablet every day by oral route. buspirone 15 mg tablet Active 10/08/2018 Not avail able Take 1 tablet twice a day by oral route. diltiazem ER 240 mg capsule,24 hr,extended release Active 10/08/2018 Not available Take 2 capsules every day by oral route. hydrochlorothiazide 12.5 mg tablet Active 10/08/2018 Not available Take 1 tablet every day by oral route. liothyronine 25 mcg tablet Active 10/08/2018 Not a vailable Take 1 tablet every day by oral route. lorazepam 0.5 mg tablet Active 10/08/2018 Not avai lable Take 1 tablet twice a day by oral route as needed. triamcinolone acetonide 0.1 % topical cream Active 09/20 Not available APPLY A THIN LAYER TO THE AFFECTED AREA(S) BY TOPICAL ROUTE 2 T IMES PER DAY Notes: uses triamcinolone as nee ded Problems Name Status Onset Date Source ? Adenomatous Polyp of Colon Active ? ? Hypothyroidism Active ? ? Anxiety Active ? ? Hypertensive Disorder Active ? ? Paroxysmal Atrial Fibrillation Active ? ? Hematochezia Active ? ? Fatigue Active ? ? Headache Active ? ? Mammography Abnormal Active ? ? Adult Health Examination Active ? ? Lichen Sclerosus Et Atrophicus Active ? ? Procedures Date Name Performed by ? 04/21/2013 Colonoscopy Information not avai lable Results Lab Results None recorded. Past Encounters None recorded. Social History Tobacco Smoking Status Never Smoker Notes: 09/09/18 Vaccine List None recorded. Plan of Care Reminders Provider Appointments None ? ? recorded. Lab None ? ? recorded. Referral None ? ? recorded. Procedures None ? ? recorded. Surgeries None ? ? recorded. Imaging None ? ? recorded. Vitals Height Weight BMI Blood Pressure 162.56 cm 84.82 kg 32.1 kg/m2 142/76 mm[Hg]
== END 2021-03-22 09:59 | disposition home or self-care (01) ==
LOC: ER 10:37
PROVIDERS: Emergency Provider Physician Assistant; PCP Internal Medicine
DX: S61.412D Laceration without foreign body of left hand, subsequent encounter (principal); X58.XXXD Exposure to other specified factors, subsequent encounter; Z48.02 Encounter for removal of sutures

== ENCOUNTER 2021-05-07 15:24 | Outpatient (REF) | payer MEDICARE, MEDICAID, SELFPAY ==
[2021-05-07 16:23] LABS: Anion Gap 7.4 mmol/L (3-11); BUN 17 mg/dL (7-18); CO2 28.6 mmol/L (21.0-32.0); CREATININE 0.8 mg/dL (0.55-1.02); Chloride 103 mmol/L (98-107); Glucose 96 mg/dL (74-106); Sodium 139 mmol/L (136-145); TSH 3.44 uIU/mL (0.36-3.74)
[2021-05-07 21:55] LABS: T3, Total 304 ng/dL (97-169)
== END 2021-05-07 15:25 | disposition home or self-care (01) ==
LOC: NCHCN 15:24
PROVIDERS: PCP Internal Medicine; Visit Provider Internal Medicine
DX: E03.9 Hypothyroidism, unspecified (principal); E87.6 Hypokalemia; I10 Essential (primary) hypertension
CPT/HCPCS: 80048; 84439; 84443; 84480

== ENCOUNTER → 2021-12-20 03:22 | Outpatient (CLI) | payer MEDICARE, MEDICAID, SELFPAY ==
--- NOTE | 2021-12-20 | DI.MAMMO_ITS ---
Exam(s) MAMMO SCREENING EXAM: MAMMO SCREENING CLINICAL HISTORY: SCREENING EXAM FOR BREAST CANCER Z12.39. TECHNIQUE: Bilateral full field digital CC and MLO mammographic images were obtained with 3D tomosyn thesis and utilizing computer aided detection (CAD). COMPARISON: Prior mammograms were reviewed, the most recent being May 2020.. Ultrasound of May 2020 was also reviewed. FINDINGS: There are multiple bilateral well-defined nodules in both breasts again noted. Some have significantl y further increased in size bilaterally. The largest is in the left breast and measures 3.9 by 3.2 cm. The largest in the right breast measure s 1.9 by 1.6 cm. There are no new spiculated masses nor malignant appearing microcalcification groups. There is no significant architectural distortion nor skin thickening-retraction. Skin mole on the left side is again noted. IMPRESSION: Increasing size of nodules bilaterally. Recommend bilateral complete breast ultrasound to ensure that all of these nodules are cysts and that none of these nodules contain solid mural components. BI-RADS Category 0 - Assessment Incomplete: Need additional imaging evaluation Breast Density - Category B - Scattered areas of fibroglandular density Breast density Category C or D implies that the patient has dense breast tissue. Dense breast tissue can make it harder to find cancer on a mammogram. Dense breast tissue is also associated with an incr eased risk of breast cancer. This information about the result of the mammogram report was provided to the patient to raise their awareness. Use this report when you speak with the patient about their risks for breast cancer, which includes their family history. At that time, you may recommend additional screening tests (Ultrasoun d or MRI) as these tests may add significant information. A negative radiographic report should not delay biopsy if a dominant or clinically suspicious mass is present. Up to ten percent of cancers are not identified on mammography. A negative report may reinforce clinical impression. Adenosis and dense breasts may obscure an underlying neoplasm. False positive reports average 6 to 10%. Patient will receive a letter notifying them of these results.
== END ==
PROVIDERS: PCP Internal Medicine; Visit Provider Internal Medicine
DX: R92.8 Other abnormal and inconclusive findings on diagnostic imaging of breast (principal); Z12.31 Encounter for screening mammogram for malignant neoplasm of breast
CPT/HCPCS: 77063; 77067

== ENCOUNTER → 2021-12-28 00:38 | Outpatient (CLI) | payer MEDICARE, MEDICAID, SELFPAY ==
--- NOTE | 2021-12-28 | DI.US_ITS ---
Exam(s) US BREAST LT COMPLETE US BREAST RT COMPLETE EXAM: US BREAST bilateral COMPLETE CLINICAL HISTORY: F/U MAMMO, BILAT BREAST NODULES,R92.8 TECHNIQUE: Bilateral breast ultrasound was performed using standard protocol. COMPARISON: Comparison is made with prior mammograms including the most recent examination from 2021. FINDINGS: Bilateral complete breast ultrasounds were performed. There multiple bilateral cysts present. The largest spans 7 to 9 o'clock position of the left breast 2 cm from the nipple. It measures 4.7 x 1.7 x 3.7 cm. The largest on the right is at the 12 o'cloc k position 1 cm from the nipple and measures 1.9 x 1 x 1.7 cm. No suspicious cystic or solid masses are seen sonographically. IMPRESSION: 1. No evidence for malignancy at this time. 2. Multiple bilateral breast cysts. 3. Yearly mammography is recommended. 4. Results were communicated with the patient on the date of the examination. BI-RADS Category 2 - Benign Findings Breast density b DATA REPOSITORY:
== END ==
PROVIDERS: PCP Internal Medicine; Visit Provider Internal Medicine
DX: R92.8 Other abnormal and inconclusive findings on diagnostic imaging of breast (principal)
CPT/HCPCS: 76642

== ENCOUNTER 2022-05-14 17:52 | Outpatient (REF) | payer MEDICARE, MEDICAID, SELFPAY ==
[2022-05-14 15:27] LABS: Anion Gap 5.5 mmol/L (3-11); BUN 13 mg/dL (7-18); CO2 31.5 mmol/L (21.0-32.0); CREATININE 0.9 mg/dL (0.55-1.02); Calcium 9.5 mg/dL (8.5-10.1); Calculated LDL 160 mg/dL (<100); Chloride 101 mmol/L (98-107); Cholesterol 238 mg/dL (<200); Estimated GFR 69.64 (mL/min/1.73m2); Glucose 99 mg/dL (74-106); HDL Cholesterol 52 mg/dL (40-60); Potassium 4.1 mmol/L (3.5-5.1); Sodium 138 mmol/L (136-145); TSH (W/Ref FT4) 2.21 uIU/mL (0.36-3.74); Triglyceride 130 mg/dL (<150)
[2022-05-14 22:28] LABS: T3, Total 237 ng/dL (97-169)
== END 2022-05-14 17:53 | disposition home or self-care (01) ==
LOC: NCHCN 17:52
PROVIDERS: PCP Internal Medicine; Visit Provider Internal Medicine
DX: I10 Essential (primary) hypertension (principal); E03.9 Hypothyroidism, unspecified; F41.8 Other specified anxiety disorders; I48.0 Paroxysmal atrial fibrillation
CPT/HCPCS: 80048; 80061; 84443; 84480

== ENCOUNTER 2023-05-19 15:02 | Outpatient (REF) | payer MEDICARE, MEDICAID, SELFPAY ==
[2023-05-19 15:38] LABS: Anion Gap 9.5 mmol/L (3-11); BUN 17 mg/dL (7-18); CO2 26.5 mmol/L (21.0-32.0); CREATININE 0.9 mg/dL (0.55-1.02); Calcium 9.6 mg/dL (8.5-10.1); Chloride 104 mmol/L (98-107); FREE T4 0.28 ng/dL (0.76-1.46); Glucose 99 mg/dL (74-106); Potassium 4.1 mmol/L (3.5-5.1); Sodium 140 mmol/L (136-145); TSH 4.72 uIU/mL (0.36-3.74)
== END 2023-05-19 15:03 | disposition home or self-care (01) ==
LOC: NCHCN 15:02
PROVIDERS: PCP Internal Medicine; Visit Provider Family Medicine
DX: I10 Essential (primary) hypertension (principal); E03.9 Hypothyroidism, unspecified
CPT/HCPCS: 80048; 84439; 84443

== ENCOUNTER → 2023-09-04 03:21 | Outpatient (CLI) | payer MEDICARE, SELFPAY ==
--- NOTE | 2023-09-04 10:36 | DI.MAMMO_ITS ---
Exam(s) MAMMO SCREENING EXAM: MAMMO SCREENING CLINICAL HISTORY: SCREENING, Z12.31. TECHNIQUE: Bilateral full field digital CC and MLO mammographic images were obtained with 3D tomosyn thesis and utilizing computer aided detection (CAD). COMPARISON: Prior mammograms were reviewed. Prior ultrasound examination of December 2021 was reviewed. FINDINGS: Again noted are multiple bilateral well-defined nodules. Those in the left breast have mostly decrea sed in size. Right side appears relatively similar to 2021. Left breast skin mole again noted. There are no new spiculated masses nor malignant appearing microcalcification groups. There is no significant architectural distortion nor skin thickening-retraction. IMPRESSION: Stable benign-appearing findings. No obvious radiographic evidence of malignancy. BI-RADS Category 2 - Benign Findings Breast Density - Category B - Scattered areas of fibroglandular density Breast density Category C or D implies that the patient has dense breast tissue. Dense breast tissue can make it harder to find cancer on a mammogram. Dense breast tissue is also associated with an incr eased risk of breast cancer. This information about the result of the mammogram report was provided to the patient to raise their awareness. Use this report when you speak with the patient about their risks for breast cancer, which includes their family history. At that time, you may recommend additional screening tests (Ultrasoun d or MRI) as these tests may add significant information. A negative radiographic report should not delay biopsy if a dominant or clinically suspicious mass is present. Up to ten percent of cancers are not identified on mammography. A negative report may reinforce clinical impression. Adenosis and dense breasts may obscure an underlying neoplasm. False positive reports average 6 to 10%. Patient will receive a letter notifying them of these results.
== END ==
PROVIDERS: PCP Family Medicine; Visit Provider Family Medicine
DX: Z12.31 Encounter for screening mammogram for malignant neoplasm of breast (principal)
CPT/HCPCS: 77063; 77067

== ENCOUNTER 2024-08-05 09:57 | Outpatient (REF) | payer MEDICARE, SELFPAY ==
[2024-08-05 14:32] LABS: FREE T4 0.28 ng/dL (0.76-1.46); TSH 6.23 uIU/mL (0.36-3.74)
[2024-08-05 22:21] LABS: T3, Total 289 ng/dL (97-169)
== END 2024-08-05 09:58 | disposition home or self-care (01) ==
LOC: NCHCN 09:57
PROVIDERS: PCP Family Medicine; Visit Provider Family Medicine
DX: E03.9 Hypothyroidism, unspecified (principal)
CPT/HCPCS: 84439; 84443; 84480

== ENCOUNTER 2024-08-23 12:04 | Outpatient (REF) | payer MEDICARE, SELFPAY ==
[2024-08-23 15:40] LABS: HCT 37.4 % (36.0-46.0); HGB 13.4 g/dL (11.2-15.7); MCH 30.6 pg (27.0-33.0); MCHC 35.8 % (32.0-36.0); MCV 85 fL (80-95); MPV 11.7 fL (8.0-11.0); Platelet Count 233 10^3/uL (130-400); RBC 4.38 10^6/uL (3.93-5.22); RDW 12.3 % (11.7-14.6); RDW-SD 38.4 fL; WBC 6.06 10^3/uL (4.4-10.8)
[2024-08-23 16:41] LABS: ALT 18 U/L (14-59); AST 20 U/L (15-37); Albumin 3.3 g/dL (3.4-5.0); Alkaline Phosphatase 106 U/L (46-116); Anion Gap 8.7 mmol/L (3-11); BUN 15 mg/dL (7-18); Bilirubin, Total 0.3 mg/dL (0.2-1.0); CO2 28.3 mmol/L (21.0-32.0); CREATININE 0.8 mg/dL (0.55-1.02); Calculated LDL 155 mg/dL (<100); Chloride 103 mmol/L (98-107); Cholesterol 235 mg/dL (<200); Estimated GFR 78.72 (mL/min/1.73m2); Ferritin 139 ng/mL (8-252); Glucose 111 mg/dL (74-106); HDL Cholesterol 55 mg/dL (>or=50); Potassium 3.8 mmol/L (3.5-5.1); Sodium 140 mmol/L (136-145); Total Protein 7.2 g/dL (6.4-8.2); Triglyceride 126 mg/dL (<150); Vitamin D 25 Total 20 ng/mL (30-100)
[2024-08-23 17:22] LABS: Iron 62 ug/dL (50-170); Total Iron Binding Capacity 238 ug/dL (250-450); Transferrin Sat 26 % (15-50)
== END 2024-08-23 12:05 | disposition home or self-care (01) ==
LOC: NCHCN 12:04
PROVIDERS: PCP Family Medicine; Visit Provider Family Medicine
DX: I10 Essential (primary) hypertension (principal); M85.89 Other specified disorders of bone density and structure, multiple sites; R53.83 Other fatigue
CPT/HCPCS: 80053; 80061; 82306; 85027; 82728; 83540; 83550

== ENCOUNTER 2024-09-07 01:08 | Outpatient (CLI) | payer MEDICARE, SELFPAY ==
--- NOTE | 2024-09-07 | DI.DEXA_ITS ---
Exam(s) XR DEXA BONE DENSITY W/WO THOMPSON EXAM: XR DEXA BONE DENSITY W/WO THOMPSON CLINICAL HISTORY: DISORDER OF BONE DENSITY,M85.88 TECHNIQUE: COMPARISON: CR XR DEXA BONE DENSITY W/WO THOMPSON from 02/08/2019 FINDINGS: Lateral Spine Image: Unremarkable. No compression deformities identified. Left hip: Total T-Score: -0.8. This compares to -0.4 on the prior examination. Total Z-Score: 0.7 T- and Z-scores: Within normal limits. Lumbar Spine: Total T-Score: -2.4. This compares to -2.2 on the prior examination. Total Z-Score: -0.2 T- and Z-scores: Findings are consistent with osteopenia. Note is made of osteoporosis in the L1 michael tebral body with a T-score of -3.0. This compares to -2.2 on the prior examination. IMPRESSION: Osteoporosis in the L1 vertebral body.
== END 2024-09-07 01:28 ==
LOC: DI 01:08
PROVIDERS: PCP Family Medicine; Visit Provider Family Medicine
DX: M85.88 Other specified disorders of bone density and structure, other site (principal)
CPT/HCPCS: 77080

== ENCOUNTER 2024-09-08 17:02 | Inpatient (IN) | payer MEDICARE, SELFPAY ==
[2024-09-08] VITALS (69 sets, daily range): BP systolic 191–227; BP diastolic 88–125; PULSE 86–112; RESP 12–22; TEMP 37.1; O2SAT 91–98
--- NOTE | 2024-09-08 17:00 | RT.EKG_ITS ---
APPROVED REPORT Exam: Resting ECG Reason for Exam: Dizzy Patient Location: E HR:109 bpm ECG Measurements Heart Rate 109 AXIS AZ 97 P 29 QRSd 87 QRS 21 QT 343 T -31 QTc 463 Conclusion Sinus tachycardia...rate> 99 Probable left atrial enlargement...P >50mS, <-0.10mV V1 Low voltage, precordial leads...precordial leads <1.0mV Sinus tachycardia, left atrial enlargement. No prior. WD
--- NOTE | 2024-09-08 17:35 | ED.GENADUL_ITS ---
Discharge Plan Disposition Patient Disposition: Admit to [facility] Condition: Stable Discharge Details Chief Complaint: Dizzy/Sync Clinical Impression: Pleural effusion, Hypertensive urgency Primary Care Provider: Celia Rhodes ED Provider: Nissa Burch Home Meds and New Rx's Prescriptions: No Action Eliquis 5 mg Tablet 5 mg PO BID carvedilol 3.125 mg Tablet 3.125 mg PO BID levothyroxine 50 mcg tablet 50 mcg PO DAILY Patient Comments: TAKE ONE TABLET BY MOUTH EVERY DAY fluoxetine 20 mg capsule 30 mg PO DAILY Patient Comments: TAKE ONE CAPSULE BY MOUTH EVERY DAY hydrochlorothiazide 12.5 mg tablet 12.5 mg PO DAILY Patient Comments: TAKE 1 TABLET BY MOUTH DAILY HPI General Date/Time Provider Initiated Documentation: 09/08/24 17:15 . HPI Narrative: 69-year-old female with history of atrial fibrillation, hypertension, thyroid disease presents for evaluation of hypertension and feeling off. Patient states that she had not had difficulty with her thyroid in many years however back in July they noticed that her thyroid levels were off and they increased her from 25 mcg to 100 mcg. She took this increased dose for 19 days however had significant side effects and she was put down to 50 mcg a day. She states that several days ago her blood pressures was 130 over 80s she did not take it yesterday however today she took it and it was significantly elevated. She has been taking her medication as prescribed. She does take Eliquis for history of atrial fibrillation. Denies any history of blood clots. No leg pain or swelling. She is tolerating normal p.o. She has gotten several episodes of discomfort in her chest while sitting in her chair. She states that she often gets up and moves around and the discomfort goes away. She denies any shortness of breath but states that she breathes hard. She is more short of breath with exertion. Related Data Home Medications ?Medication ?Instructions ?Recorded ?Confirmed apixaban 5 mg tablet (Eliquis) 5 mg PO BID 01/22/19 09/08/24 carvedilol 3.125 mg tablet 3.125 mg PO BID 01/28/19 09/08/24 fluoxetine 20 mg capsule 30 mg PO DAILY 03/12/21 09/08/24 hydrochlorothiazide 12.5 mg tablet 12.5 mg PO DAILY 03/12/21 09/08/24 levothyroxine 50 mcg tablet 50 mcg PO DAILY 09/08/24 09/08/24 Allergies Allergy/AdvReac Type Severity Reaction Status Date / Time Sulfa (Sulfonamide Allergy Intermediate Swelling/Ed Unverified 09/08/24 17:14 Antibiotics) soha General Stated Complaint: Dizzy/Sync ELAINE: 3 Review of Systems Narrative: Remainder of review of systems otherwise negative except for as noted in the HPI x 10. Exam Narrative Exam Narrative: General: non-toxic, no respiratory distress, comfortable HEENT: normocephalic, atraumatic, lids and lashes normal, PERRL, EOMI, anicteric sclera, no conjunctival injection, moist oral mucosa Card: Tachycardic, regular, S1S2, no murmurs, rubs, or gallops Lungs: good air entry, clear to auscultation bilaterally. no wheezes, rales, rhonchi, or retractions Abd: soft, non-tender, non-distended, normal bowel sounds, no rebound or guarding, no peritoneal signs Musculoskeletal: full range of motion of arms and legs, no tenderness to palpation. no clubbing, cyanosis, or edema Neurologic: GSC 15, CN 2-12 intact bilaterally, speech normal, strength normal, sensation intact distally in all four extremities, gait normal, 2+ biceps tendon reflexes, normal finger to nose, normal rapid alternating movements, no pronator drift Psych: alert and oriented Skin: no petechiae, no lesions, warm and dry Course Vital Signs Vital signs: Vital Signs Temperature 37.1 C 09/08/24 17:08 Pulse 112 H 09/08/24 17:08 Respiratory Rate 18 09/08/24 17:08 Blood Pressure 220/108 H 09/08/24 17:08 Pulse Oximetry 98 09/08/24 17:08 Temperature 37.1 C 09/08/24 17:08 Pulse 112 H 09/08/24 17:08 Respiratory Rate 18 09/08/24 17:08 Blood Pressure 220/108 H 09/08/24 17:08 Pulse Oximetry 98 09/08/24 17:08 Pain Level 0 09/08/24 17:08 Medical Decision Making 69-year-old female with history of atrial fibrillation, hypertension, thyroid disease presents for evaluation of hypertension and feeling off. She is very hypertensive upon ED arrival. EKG shows sinus tachycardia. Laboratory studies show elevated TSH. Free T4 was normal. 2 troponins are flat. Chest x-ray concerning for large pleural effusion. Patient does have an elevated D-dimer. CT chest PE study was obtained. This shows a large low-density left pleural effusion with collapse of the inferior aspect of the lingula and left lower lobe. Pulmonary nodules within the aerated left lung are suspicious for neoplasm. Findings are suspicious for pulmonary metastasis and malignant effusion. I did discuss findings with patient and daughter. Patient does not have any history of cancer. No history of smoking or respiratory disease. Last colonoscopy was 4-1/2 years ago. She is due for colonoscopy this year. She does get her mammograms yearly. She does have her mammogram coming up soon. Patient did take her normal evening dose of her blood pressure medication. She did have some decrease of her blood pressure down to 190/90. She still remains mildly tachycardic. Findings of imaging were discussed with oncology at [facility]. They recommend CT abdomen pelvis. They do recommend thoracentesis and sending fluid for cytology as well as culture. Patient is on Eliquis and did take a dose this morning. They believe that patient will potentially need interventional pulmonary/radiology to biopsy one of the nodules. Case discussed with surgery, Dr. Perez who agrees to consult for thoracentesis. Upon return from abdominal CT patient's blood pressure has once again increased to 220/110. IV metoprolol ordered. Patient will require admission. Case discussed with Dr. Higuera, hospitalist who will admit to their service. Quality:SDOH Health Related Social Needs: No Data to Display PFSH All Active Problems (Updated 09/08/24 @ 22:29 by Nissa Burch MD) Hypertensive urgency (Acute) Pleural effusion (Acute) Visit for suture removal (Acute) Laceration (Acute) Discomfort of vulva (Acute) Hypothyroidism (Chronic) Medical History HTN (hypertension) Anxiety Atrial fibrillation Surgical History H/O breast surgery Family History Other Cancer Heart disease Hypertension Social History Smoking/Tobacco Use Status: Never Smoking risk assessment performed?: Yes Alcohol Intake: never Drug use: Never Substance use type: does not use Do you feel safe at home: Yes Do you feel safe in your relationship?: Yes Female Reproductive History Menstrual Menopause type: natural (11/2008) History History 5 Para 3 Hx # Term Pregnancies 3 Multiple births Hx # Pregnancies Ectopic pregnancies AB induced Hx Number of Living Children 3 AB spontaneous 2
--- NOTE | 2024-09-08 17:45 | DI.RAD_ITS ---
Exam(s) XR CHEST 2V PA LATERAL EXAM: XR CHEST 2V PA LATERAL CLINICAL HISTORY: chest pain TECHNIQUE: 2D digital imaging was performed. Two views. COMPARISON: CR ABD FLAT UPRIGHT PA CHEST from 08/23/2011 FINDINGS: Multiple overlying monitoring leads. HEART: Partially obscured by the large left pleural effusion Aorta: Obscured. PULMONARY VASCULATURE: Partially obscured MEDIASTINUM: Widening of the left superior mediastinum and left hilar region, suspicious for adenopat hy. There is narrowing of the left main bronchus and probable attenuation of the right upper and low er lobe bronchi. LUNGS: There is a large left pleural effusion. There is some mediastinal shift toward the right. Th ere are mildly increased interstitial markings on the right side of the chest which could represent p ulmonary edema. PLEURAL SPACE: Large left pleural effusion. BONE:Unremarkable for age. No gross evidence of rib destruction. SOFT TISSUES: Unremarkable. IMPRESSION: Large left pleural effusion. Left mediastinal widening and narrowing of the left main bronchus as we ll as upper and lower lobe bronchi. The findings are highly suspicious for carcinoma. Chest CT is r ecommended. Unexpected findings DATA REPOSITORY: RADIATION DOSE DELIVERED:
[2024-09-08 17:56] LABS: Abs Immature Grans 0.01 10^3/uL (0.0-0.06); Absolute Basophil Count 0.02 10^3/uL (0.0-0.2); Absolute Eosinophil Count 0.11 10^3/uL (0.0-0.7); Absolute Lymphocyte Count 2.59 10^3/uL (1.2-3.4); Absolute Monocyte Count 0.61 10^3/uL (0.1-0.8); Absolute Neutrophil Count 3.27 10^3/uL (1.2-6.7); Basophils % 0.3 %; Eosinophils % 1.7 %; HCT 39.8 % (36.0-46.0); HGB 13.9 g/dL (11.2-15.7); Immature Grans % 0.2 %; Lymphocytes % 39.2 %; MCH 29.5 pg (27.0-33.0); MCHC 34.9 % (32.0-36.0); MCV 85 fL (80-95); MPV 10.7 fL (8.0-11.0); Monocytes % 9.2 %; Neutrophils % 49.4 %; Platelet Count 238 10^3/uL (130-400); RBC 4.71 10^6/uL (3.93-5.22); RDW-SD 36.7 fL; WBC 6.61 10^3/uL (4.4-10.8)
[2024-09-08 18:22] LABS: D-Dimer 1801 ng/mlFEU (<500)
[2024-09-08 18:23] LABS: ALT 18 U/L (14-59); AST 20 U/L (15-37); Albumin 3.5 g/dL (3.4-5.0); Alkaline Phosphatase 108 U/L (46-116); Anion Gap 8.5 mmol/L (3-11); BUN 18 mg/dL (7-18); Bilirubin, Total 0.3 mg/dL (0.2-1.0); CO2 27.5 mmol/L (21.0-32.0); Calcium 9.2 mg/dL (8.5-10.1); Chloride 99 mmol/L (98-107); Estimated GFR 60.23 (mL/min/1.73m2); Glucose 106 mg/dL (74-106); Lipase 30 U/L (<78); Magnesium 1.9 mg/dL (1.8-2.4); Potassium 3.8 mmol/L (3.5-5.1); Sodium 135 mmol/L (136-145); TSH (W/Ref FT4) 11.78 uIU/mL (0.36-3.74); Total Protein 7.8 g/dL (6.4-8.2); Troponin I 4 ng/L (<or=51)
[2024-09-08 18:48] LABS: FREE T4 1.11 ng/dL (0.76-1.46)
[2024-09-08] MEDS: Carvedilol 3.125 MG TAB PO (19:02)
[2024-09-08] MEDS: FLUoxetine 20 MG CAP PO (19:02)
[2024-09-08] MEDS: Omnipaque 350 MG/ML 100 ML BTL 70 ML IJ ×2 (19:10→21:58)
[2024-09-08] MEDS: Normal Saline - Diluent 50 ML VIAL IJ ×2 (19:11→21:58)
--- NOTE | 2024-09-08 19:16 | DI.CT_ITS ---
Exam(s) CT CHEST PE CTA EXAM: CT CHEST PE CTA CLINICAL HISTORY: tachycardia, sob. TECHNIQUE: Imaging Protocol: Axial CT angiography was performed with multi-slice acquisition and mu lti-planar reconstructions as well as axial, coronal and sagittal MIP reconstructions. Computer aided detection (CAD) was utilized. CONTRAST MATERIAL: Intravenous: Omnipaque 350 Contrast volume:70 ml COMPARISON: CR XR DEXA BONE DENSITY W/WO THOMPSON from 09/07/2024 CR XR CHEST 2V PA LATERAL from 09/08/[address] ABDOMEN PELVIS W from 09/08/2024 FINDINGS: Pulmonary Arteries: No evidence of filling defect to suggest pulmonary emboli. Mediastinum and [place]: Soft tissue density material noted around the left hilum which is difficult to separate from adjacent effusion. There is some soft tissue density versus loculated fluid in the ant erior mediastinum. There are enlarged subcarinal lymph nodes, approximately 3.3 cm. There are multi ple areas of nodularity extending along the major fissure. Significant [id number] mediastinal cristi ft. Small hiatal hernia. Pulmonary parenchyma: Large left pleural effusion compresses the majority of the left lower lobe and lingula. There is narrowing of the bronchi at the left hilum by surrounding soft tissue mass. The r ight lung appears clear. Pleura: Large left pleural effusion and compressive atelectasis. No right pleural effusion. Signifi cant midline shift toward the right. No pneumothorax. Areas of pleural nodularity noted along the left major fissure and at the left lung base. Heart: The heart is not dilated. No coronary artery calcifications are seen. Aorta: Thoracic aorta non-dilated. No dissection. Upper abdomen: No acute findings. Bones: Pectus excavatum deformity. No definite lytic lesions. Tubes, Catheters, and Lines: None Soft tissues: Unremarkable. IMPRESSION: No evidence of pulmonary embolism. Large left pleural effusion causing mediastinal shift. Significant left lung collapse. Soft tissue masses versus adenopathy noted around the left hilar region causing bronchial narrowing. Subcarinal adenopathy. Pleural nodules extending along the minor fissure. Also areas of nodularity at the left lung base. RADIATION DOSE DELIVERED: 101.13mGy.cm Total DLP DATA REPOSITORY: All CT scans at this facility are submitted to the National Radiology Data Registry (NRDR) Dose Index Registry (DIR) with the [employer] (ACR). RADIATION OPTIMIZATION: All CT scans at this facility use at least one of these dose optimization te chniques: automated exposure control; mA and/or kV adjustment per patient size (includes targeted exa ms where dose is matched to clinical indication); or iterative reconstruction.
[2024-09-08 19:27] LABS: Troponin I 5 ng/L (<or=51)
--- NOTE | 2024-09-08 19:42 | DI.VRAD_ITS ---
PROCEDURE INFORMATION: Exam: CTA Chest With Contrast Exam date and time: 09/08/2024 7:06 PM Age: 69 years old Clinical indication: Shortness of breath and tachypnea TECHNIQUE: Imaging protocol: Computed tomographic angiography of the chest with contrast. Exam focused on the arteries. 3D rendering (Not supervised by radiologist): MIP and/or 3D reconstructed images were created by the technologist. Contrast material: OMNIPAQUE 350; Contrast volume: 70 ml; Contrast route: INTRAVENOUS (IV); COMPARISON: CR XR CHEST 2V PA LATERAL 09/08/2024 6:24 PM FINDINGS: Pulmonary arteries: No acute pulmonary embolus. Aorta: Unremarkable. No aortic aneurysm. No aortic dissection. Lungs: There is mild centrilobular emphysema with an apical predominance. Lung volumes are low. The right lung is clear. The dependent portions of the left lingula and lower lobe are collapsed. Multiple pulmonary nodules are visualized within the aerated portions of the left lung. These measure up to 8 mm in diameter. Pleural spaces: There is a large low-density left pleural effusion. Some loculated appearing fluid is present within the left oblique fissure. Heart: Unremarkable. No cardiomegaly. No pericardial effusion. Lymph nodes: Unremarkable. No enlarged lymph nodes. Bones/joints: Unremarkable. No acute fracture. Soft tissues: Unremarkable. Other findings: . IMPRESSION: 1. No acute pulmonary embolus. 2. Large low-density left pleural effusion with collapse of the inferior aspect of the lingula and left lower lobe. 3. Pulmonary nodules within the aerated left lung suspicious for neoplasm. Findings are suspicious for pulmonary metastasis and malignant effusion. Does this patient have a history of cancer elsewhere? Dictated and Authenticated by: Kristan Reddy MD. Orderin Kiersten Azar MD
--- NOTE | 2024-09-08 21:59 | DI.CT_ITS ---
Exam(s) CT ABDOMEN PELVIS W EXAM: CT ABDOMEN PELVIS W CLINICAL HISTORY: pleural effusion, ?metastatic disease. TECHNIQUE: Imaging Protocol: Axial computed tomography images with coronal and sagittal reformatted images were created and reviewed CONTRAST MATERIAL: Intravenous: Omnipaque 350 Contrast volume:75 ml Oral: no COMPARISON: No exams were available for comparison FINDINGS: ABDOMEN and PELVIS: Lung Bases: Large left pleural effusion. Abnormal pleural thickening and nodularity seen at the infe rior lung base. Liver: Normal density. No suspicious mass. Gallbladder and biliary tract: Layering small stones. No wall thickening or pericholecystic fluid. No biliary dilation. Pancreas: Normal density. No abnormal calcifications or inflammatory process. No evidence of mass. Spleen: Normal. Kidneys: Normal size, contour and axis. No radiodense stones. No obstructive uropathy. Small left r enal cyst. No suspicious masses seen. Adrenal glands: No masses seen. Vasculature: Abdominal aorta non-dilated. Minimal atherosclerotic changes. Soft tissues: Unremarkable. Bladder: No gross wall thickening. No calculi.No focal mass. Bowel: No obstruction. No bowel wall thickening. Appendix normal. Peritoneal cavity: No ascites. No focal collection. No mesenteric inflammatory response. No free air . Bones: Hemangioma at the L3 vertebral body. Degenerative disc changes in the lower lumbar spine. No lytic or blastic lesions are identified. Reproductive organs: Retroverted uterus. There is apparent endometrial thickening. There is an ante rior fibroid. Lucency near the cervix likely old nabothian cyst. Lymph nodes: No pathologically enlarged lymph nodes. IMPRESSION:: Large left pleural effusion. Please see separate chest CT report. Thickening of the endometrial stripe. Pelvic ultrasound recommended for further evaluation. Cholelithiasis. No evidence of acute cholecystitis. Unexpected findings RADIATION DOSE DELIVERED: 624.31mGy.cm Total DLP DATA REPOSITORY: All CT scans at this facility are submitted to the National Radiology Data Registry (NRDR) Dose Index Registry (DIR) with the [employer] (ACR). RADIATION OPTIMIZATION: All CT scans at this facility use at least one of these dose optimization te chniques: automated exposure control; mA and/or kV adjustment per patient size (includes targeted exa ms where dose is matched to clinical indication); or iterative reconstruction.
[2024-09-08 22:00] LABS: Bilirubin Negative (Negative); Blood Trace-intact (Negative); Clarity Clear (Clear); Glucose Negative (Negative); Ketones Negative (Negative); Leukocyte Esterase Negative (Negative); Nitrite Negative (Negative); Specific Gravity 1.015 (1.005-1.025); Urobilinogen 0.2 mg/dL (Up to 0.2); pH 7.5 (5-8)
[2024-09-08 22:13] LABS: Bacteria Negative HPF (Negative); C & S Indicated? No; Casts Negative LPF (Negative); Crystals Negative HPF (Negative); Epithelial Cells Rare HPF (Negative); Mucus Negative (Negative); RBC 0-2 HPF (0-2); WBC Negative HPF (0-5)
--- NOTE | 2024-09-08 22:38 | DI.VRAD_ITS ---
PROCEDURE INFORMATION: Exam: CT Abdomen And Pelvis With Contrast Exam date and time: 09/08/2024 9:49 PM Age: 69 years old Clinical indication: Other: Pleural effusion, ? metastatic disease TECHNIQUE: Imaging protocol: Computed tomography of the abdomen and pelvis with contrast. Contrast material: [id number]; Contrast volume: 75 ml; Contrast route: INTRAVENOUS (IV); COMPARISON: CT CHEST PE CTA 09/08/2024 7:06 PM FINDINGS: Lungs: There is left lower lobe consolidation/collapse. Pleural spaces: Large left pleural effusion. There are anterior left lower pleural space nodularities Diaphragm: A small hiatal hernia is present. Liver: Normal. No mass. Gallbladder and biliary ducts: Multiple calcified gallstones are present. Pancreas: Normal. No ductal dilation. Spleen: Normal. No splenomegaly. Adrenal glands: Normal. No mass. Kidneys and ureters: Bilateral simple renal cysts measuring up to 3 mm. There is no evidence of hydronephrosis. Stomach and bowel: Mild diverticulosis is present in the distal colon. Appendix: No evidence of appendicitis. Intraperitoneal space: Unremarkable. No free air. No significant fluid collection. Vasculature: There are numerous benign phleboliths in the pelvis. The vasculature demonstrates diffuse mild atherosclerotic calcification. Lymph nodes: Unremarkable. No enlarged lymph nodes. Urinary bladder: Unremarkable as visualized. Reproductive: Heterogeneous uterus with possible thickening of the endometrium measuring 1.1 cm. Bones/joints: The pubic symphysis demonstrates moderate degenerative changes. The lumbar spine demonstrates moderate degenerative changes at multiple levels. There is pectus excavatum. Soft tissues: Unremarkable. IMPRESSION: 1. Left pleural effusion with left lower lobe consolidation/collapse with pleural nodularities at the anterior left lower pleura. 2. Heterogeneous uterus with thickening of the endometrium reaching 1.1 cm to be followed up with ultrasound to rule out endometrial lesion. 3. No other intra-abdominal masses. 4. Cholelithiasis with no changes of acute cholecystitis. Dictated and Authenticated by: Félix Rapp MD. Orderin Kiersten Azar MD
[2024-09-08] MEDS: Metoprolol 5 MG/5 ML VIAL IVP (22:48)
--- NOTE | 2024-09-08 23:37 | W.PM.HP.N ---
Date of service: 09/08/24 Time of Service: 23:37 Assessment and Plan Assessment and plan (1) Pleural effusion: Status: Acute Assessment and plan: -large effusion with pulmonary nodules concerning for metastatic disease from unknown primary per CT report -no hypoxia or respiratory distress -CT abdomen/pelvis with endometrial thickening, concerning for endometrial lesion and no other obvious mass -ED discussed the case with oncology who suggested the above imaging and to proceed with thoracentesis; this was prior to results of CT abdomen/pelvis -ED also discussed with surgery who reportedly are able to perform thoracentesis -pt is on apixaban for a-fib that will be held in anticipation of thoracentesis -might consider re-engaging 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 to determine if further evaluation of endometrium including biopsy could also be performed while apixaban is held as pt would be high risk for VTE given the likely malignancy and would be beneficial to minimize time off AC (2) Hypertensive urgency: Status: Acute Assessment and plan: -BP highly elevated prior to presentation and not improved much with usual PO coreg in ED -no evidence of end-organ damage -5 mg IVP metoprolol x1 with minimal response and last SBP 220 on arrival to floor -suspect anxiety component, will give a dose of ativan now -prn IV hydralazine (3) Hypothyroidism: Status: Chronic Assessment and plan: -TSH highly elevated likely more of an inflammatory response vs underdosing of synthroid, continue 50 mcg dose in AM (4) HTN (hypertension): Assessment and plan: -address BP as above overnight, resume usual BP regimen in AM (5) Anxiety: Assessment and plan: -continue fluoxetine -suspec anxiety contributing to elevated BP and pt had been on lorazepam in the past, will give 0.5 mg dose now (6) Atrial fibrillation: Assessment and plan: -regular on exam/ECG -continue coreg -apixaban on hold History of Present Illness Narrative: 69-year-old female with history of atrial fibrillation, hypertension and hypothyroidism with no history of CA/malignancy presents for concern about elevated blood pressure and feeling off. She notes that she has not been feeling well since about May. After feeling poorly for a couple of months, she was seen by her PCP in July who found her thryoid levels to be low so her synthroid dose was increased from 25 mcg to 100mcg. After increasing the dose, she still did not feel well and in fact felt worse. She took the increased dose for 19 days before the dose was reduced to 50 mcg. Immediately after that change she felt much better and at some point felt like she was back to normal. Within a few days she started to feel worse again, but has continued to take the 50 mcg dose. In the past few days she has felt much worse again, very tired and low energy. She denies feeling short of breath, but says, it is hard to breath, this is worse with exertion. She routinely checks her blood pressure at home and notes it has been generally well controlled with some transiently elevated readings at times. Today her blood pressure was quite high which in combination with her overall malaise prompted her ED visit today. She has been taking her medication as prescribed including this morning. She describes fleeting episodes of discomfort in her chest that she did not find to be overly concerning, I wouldn't have come to the emergency room for that. No weight loss and has gained a few pounds recently. No night sweats although said she had some hot flashes at times recently when her thyroid dose was changed. Non-productive cough with no hemoptysis. No history of smoking. No significant second hand smoke exposure. No vaginal bleeding. Family history of unspecified malignancy in her mother who shortly after being diagnosed with cancer in her bones. Grandparents also with unspecified cancer history. No headache or chest pain currently. All other ROS is negative. PFSH All Active Problems (Updated 09/08/24 @ 22:29 by Nissa Burch MD) Hypertensive urgency (Acute) Pleural effusion (Acute) Visit for suture removal (Acute) Laceration (Acute) Discomfort of vulva (Acute) Hypothyroidism (Chronic) Medical History HTN (hypertension) Anxiety Atrial fibrillation Surgical History H/O breast surgery Family History Other Cancer Heart disease Hypertension Social History Smoking/Tobacco Use Status: Never Smoking risk assessment performed?: Yes Alcohol Intake: never Drug use: Never Substance use type: does not use Do you feel safe at home: Yes Do you feel safe in your relationship?: Yes Female Reproductive History Menstrual Menopause type: natural (11/2008) History History 5 Para 3 Hx # Term Pregnancies 3 Multiple births Hx # Pregnancies Ectopic pregnancies AB induced Hx Number of Living Children 3 AB spontaneous 2 Meds Allergies and Home Medications Allergies Allergy/AdvReac Type Severity Reaction Status Date / Time Sulfa (Sulfonamide Allergy Intermediate Swelling/Ed Unverified 09/08/24 17:14 Antibiotics) soha Home Medications ?Medication ?Instructions ?Recorded ?Confirmed ?Type apixaban 5 mg tablet (Eliquis) 5 mg PO BID 01/22/19 09/08/24 History carvedilol 3.125 mg tablet 3.125 mg PO BID 01/28/19 09/08/24 History fluoxetine 20 mg capsule 30 mg PO DAILY 03/12/21 09/08/24 History hydrochlorothiazide 12.5 mg tablet 12.5 mg PO DAILY 03/12/21 09/08/24 History levothyroxine 50 mcg tablet 50 mcg PO DAILY 09/08/24 09/08/24 History Exam Const General: no acute distress Resp Auscultation: clear to auscultation bilaterally Cardio Rate: regular rate Rhythm: regular rhythm Skin Lesions: no lesions (no obvious lesions) Extrem Other: no LE edema BL Psych Appearance: grossly normal Results Labs 09/08/24 17:50 09/08/24 17:50 Labs: Laboratory Results - last 24 hr 09/08/24 09/08/24 09/08/24 17:50 19:05 20:34 WBC 6.61 RBC 4.71 Hgb 13.9 Hct 39.8 MCV 85 MCH 29.5 MCHC 34.9 RDW 12.0 Plt Count 238 MPV 10.7 Immature Gran % 0.2 Neutrophils % 49.4 Lymphocytes % 39.2 Monocytes % 9.2 Eosinophils % 1.7 Basophils % 0.3 Nucleated RBC % 0.0 Absolute Neutrophils 3.27 Absolute Lymphocytes 2.59 Absolute Monocytes 0.61 Absolute Eosinophils 0.11 Absolute Basophils 0.02 D-Dimer 1801 H Sodium 135 L Potassium 3.8 Chloride 99 Carbon Dioxide 27.5 Anion Gap 8.5 BUN 18 Creatinine 1.0 Est GFR (CKD-EPI 2020) 60.23 Glucose 106 Calcium 9.2 Magnesium 1.9 Total Bilirubin 0.3 AST 20 ALT 18 Alkaline Phosphatase 108 Troponin I 4 5 Cancelled Total Protein 7.8 Albumin 3.5 Lipase 30 TSH 11.78 H Free T4 1.11 Urine Color Urine Clarity Urine pH Ur Specific [place] Urine Protein Urine Ketones Urine Blood Urine Nitrite Urine Bilirubin Urine Urobilinogen Ur Leukocyte Esterase Urine RBC Urine WBC Ur Epithelial Cells Urine Crystals Urine Bacteria Urine Casts Urine Mucus Ur Culture Indicated? Urine Glucose 09/08/24 21:46 WBC RBC Hgb Hct MCV MCH MCHC RDW Plt Count MPV Immature Gran % Neutrophils % Lymphocytes % Monocytes % Eosinophils % Basophils % Nucleated RBC % Absolute Neutrophils Absolute Lymphocytes Absolute Monocytes Absolute Eosinophils Absolute Basophils D-Dimer Sodium Potassium Chloride Carbon Dioxide Anion Gap BUN Creatinine Est GFR (CKD-EPI 2020) Glucose Calcium Magnesium Total Bilirubin AST ALT Alkaline Phosphatase Troponin I Total Protein Albumin Lipase TSH Free T4 Urine Color Yellow Urine Clarity Clear Urine pH 7.5 Ur Specific [place] 1.015 Urine Protein Negative Urine Ketones Negative Urine Blood Trace-intact H Urine Nitrite Negative Urine Bilirubin Negative Urine Urobilinogen 0.2 Ur Leukocyte Esterase Negative Urine RBC 0-2 Urine WBC Negative Ur Epithelial Cells Rare Urine Crystals Negative Urine Bacteria Negative Urine Casts Negative Urine Mucus Negative Ur Culture Indicated? No Urine Glucose Negative Last Vital Signs Temp 37.1 C 09/08/24 17:08 Pulse 91 H 09/08/24 22:53 Resp 20 09/08/24 22:53 BP 218/100 H 09/08/24 22:53 Pulse Ox 93 09/08/24 22:53 Time Spent Time spent with Patient: 55-74 minutes Time was spent: preparing to see the patient(eg.review tests), obtaining and/or reviewing separately [facility], ordering medications,tests, procedures, indepentently interpreting results and counseling the patient
[2024-09-09] VITALS (9 sets, daily range): BP systolic 129–207; BP diastolic 65–120; PULSE 82–99; RESP 15–20; TEMP 36.3–36.9; O2SAT 92–95
--- NOTE | 2024-09-09 | DI.US_ITS ---
Exam(s) US PELVIS TRANSVAGINAL EXAM: US PELVIS TRANSVAGINAL CLINICAL HISTORY: There is apparent endometrial thickening. TECHNIQUE: Transabdominal and transvaginal imaging was performed using standard protocol. COMPARISON: CT CT ABDOMEN PELVIS W from 09/08/2024 FINDINGS: UTERUS: Retroverted 6.7 x 3.7 x 5.4 cm Endometrium: Abnormally thickened and heterogeneous at 13 millimeters. Myometrium: Left-sided fibroid measuring 1.8 cm. Right-sided fibroid measuring 1 cm. Additional low er uterine segment fibroid measuring 9 millimeters. Cervix: Small nabothian cyst. OVARIES: Right: Cyst or mass: None. Left: Cyst or mass: None. DOPPLER: Color: Symmetric and uniform flow to both ovaries. No hyperemia. CUL-DE-SAC: Free fluid: None. IMPRESSION: 1. Abnormally thickened and heterogeneous endometrium. Biopsy recommended.. 2. Small uterine fibroids. 3. Unremarkable ovaries. DATA REPOSITORY:
--- NOTE | 2024-09-09 00:07 | W.PC.ACHO ---
Registration Status: Primary Language: Preferred Language: ED Information & Data Chief Complaint Dizzy/Sync 09/08/24 17:39 Triage Note pt reports checked bp and 09/08/24 17:08 was really high, head feels wishy washy but no head ache, pt reported chest pain yesterday, pain resolved on its own. pt reports her thyroid is all out of whack and she started levothyroxine on 08/10/24. Medical / Surgical History (Last Reviewed 09/08/24 @ 17:37 by Nissa Burch MD) HTN (hypertension) Anxiety Atrial fibrillation (Last Reviewed 09/08/24 @ 17:37 by Nissa Burch MD) H/O breast surgery Most Recent Vital Signs Temperature 37.1 C 09/08/24 17:08 Pulse 91 H 09/08/24 22:53 Pulse 90 09/08/24 22:50 Respiratory Rate 20 09/08/24 22:53 Respiratory Effort Normal, Non-Labored 09/08/24 22:53 Respiratory Depth Normal 09/08/24 22:53 Respiratory Pattern Normal 09/08/24 22:53 Blood Pressure 218/100 H 09/08/24 22:53 Blood Pressure Mean 139 09/08/24 22:53 Blood Pressure Position Supine 09/08/24 22:53 Pulse Oximetry 93 09/08/24 22:53 Oxygen Delivery Method Room Air 09/08/24 22:53 Oxygen Flow Rate 0 09/08/24 22:53 Pain Level 0 09/08/24 17:08 Comment MD aware of BP + HR 09/08/24 20:31 Allergies Sulfa (Sulfonamide Antibiotics) Allergy (Intermediate, Unverified 09/08/24 17:14) Swelling/Edema Active Medications Generic Name Dose Route Start Last Admin Trade Name Freq PRN Reason Stop Dose Admin Carvedilol 3.125 mg 09/08/24 20:00 09/08/24 19:02 Carvedilol 3.125 Mg Tab PO 3.125 mg BID EDWARD Administration Iohexol 70 ml 09/08/24 19:15 09/08/24 21:58 Omnipaque 350 Mg/Ml 100 Ml Btl IJ 10/08/24 23:59 70 ml DIRECTED EDWARD Administration Sodium Chloride 0 ml 09/08/24 20:00 09/08/24 21:24 Normal Saline Flush 10 Ml Syr IVP Not Given BID EDWARD Sodium Chloride 50 ml 09/08/24 19:15 09/08/24 21:58 Normal Saline - Diluent 50 Ml Vial IJ 50 ml .FOR DI USE EDWARD Administration IV IV Catheter Type [Right Peripheral IV Antecubital] IV Catheter Gauge [Right 18 Antecubital] Diet Orders Category Date Time Status Regular/Normal [DIET] Nutrition 09/09/24 Breakfast Active Diagnostics 09/08/24 09/08/24 09/08/24 Range/Units 21:46 20:34 19:05 WBC (4.4-10.8) 10^3/uL RBC (3.93-5.22) 10^6/uL Hgb (11.2-15.7) g/dL Hct (36.0-46.0) % MCV (80-95) fL MCH (27.0-33.0) pg MCHC (32.0-36.0) % RDW (11.7-14.6) % Plt Count (130-400) 10^3/uL MPV (8.0-11.0) fL Immature Gran % % Neutrophils % % Lymphocytes % % Monocytes % % Eosinophils % % Basophils % % Nucleated RBC % (0.0-0.3) % Absolute Neutrophils (1.2-6.7) 10^3/uL Absolute Lymphocytes (1.2-3.4) 10^3/uL Absolute Monocytes (0.1-0.8) 10^3/uL Absolute Eosinophils (0.0-0.7) 10^3/uL Absolute Basophils (0.0-0.2) 10^3/uL D-Dimer (<500) ng/mlFEU Sodium (136-145) mmol/L Potassium (3.5-5.1) mmol/L Chloride (98-107) mmol/L Carbon Dioxide (21.0-32.0) mmol/L Anion Gap (3-11) mmol/L BUN (7-18) mg/dL Creatinine (0.55-1.02) mg/dL Est GFR (CKD-EPI 2020) (mL/min/1.73m2) Glucose (74-106) mg/dL Calcium (8.5-10.1) mg/dL Magnesium (1.8-2.4) mg/dL Total Bilirubin (0.2-1.0) mg/dL AST (15-37) U/L ALT (14-59) U/L Alkaline Phosphatase (46-116) U/L Troponin I Cancelled 5 (<or=51) ng/L Total Protein (6.4-8.2) g/dL Albumin (3.4-5.0) g/dL Lipase (<78) U/L TSH (0.36-3.74) uIU/mL Free T4 (0.76-1.46) ng/dL Urine Color Yellow (Yellow) Urine Clarity Clear (Clear) Urine pH 7.5 (5-8) Ur Specific [place] 1.015 (1.005-1.025) Urine Protein Negative (Neg-Trace) mg/dL Urine Ketones Negative (Negative) mg/dL Urine Blood Trace-intact H (Negative) Urine Nitrite Negative (Negative) Urine Bilirubin Negative (Negative) Urine Urobilinogen 0.2 (Up to 0.2) mg/dL Ur Leukocyte Esterase Negative (Negative) Urine RBC 0-2 (0-2) HPF Urine WBC Negative (0-5) HPF Ur Epithelial Cells Rare (Negative) HPF Urine Crystals Negative (Negative) HPF Urine Bacteria Negative (Negative) HPF Urine Casts Negative (Negative) LPF Urine Mucus Negative (Negative) Ur Culture Indicated? No Urine Glucose Negative (Negative) mg/dL 09/08/24 Range/Units 17:50 WBC 6.61 (4.4-10.8) 10^3/uL RBC 4.71 (3.93-5.22) 10^6/uL Hgb 13.9 (11.2-15.7) g/dL Hct 39.8 (36.0-46.0) % MCV 85 (80-95) fL MCH 29.5 (27.0-33.0) pg MCHC 34.9 (32.0-36.0) % RDW 12.0 (11.7-14.6) % Plt Count 238 (130-400) 10^3/uL MPV 10.7 (8.0-11.0) fL Immature Gran % 0.2 % Neutrophils % 49.4 % Lymphocytes % 39.2 % Monocytes % 9.2 % Eosinophils % 1.7 % Basophils % 0.3 % Nucleated RBC % 0.0 (0.0-0.3) % Absolute Neutrophils 3.27 (1.2-6.7) 10^3/uL Absolute Lymphocytes 2.59 (1.2-3.4) 10^3/uL Absolute Monocytes 0.61 (0.1-0.8) 10^3/uL Absolute Eosinophils 0.11 (0.0-0.7) 10^3/uL Absolute Basophils 0.02 (0.0-0.2) 10^3/uL D-Dimer 1801 H (<500) ng/mlFEU Sodium 135 L (136-145) mmol/L Potassium 3.8 (3.5-5.1) mmol/L Chloride 99 (98-107) mmol/L Carbon Dioxide 27.5 (21.0-32.0) mmol/L Anion Gap 8.5 (3-11) mmol/L BUN 18 (7-18) mg/dL Creatinine 1.0 (0.55-1.02) mg/dL Est GFR (CKD-EPI 2020) 60.23 (mL/min/1.73m2) Glucose 106 (74-106) mg/dL Calcium 9.2 (8.5-10.1) mg/dL Magnesium 1.9 (1.8-2.4) mg/dL Total Bilirubin 0.3 (0.2-1.0) mg/dL AST 20 (15-37) U/L ALT 18 (14-59) U/L Alkaline Phosphatase 108 (46-116) U/L Troponin I 4 (<or=51) ng/L Total Protein 7.8 (6.4-8.2) g/dL Albumin 3.5 (3.4-5.0) g/dL Lipase 30 (<78) U/L TSH 11.78 H (0.36-3.74) uIU/mL Free T4 1.11 (0.76-1.46) ng/dL Urine Color (Yellow) Urine Clarity (Clear) Urine pH (5-8) Ur Specific [place] (1.005-1.025) Urine Protein (Neg-Trace) mg/dL Urine Ketones (Negative) mg/dL Urine Blood (Negative) Urine Nitrite (Negative) Urine Bilirubin (Negative) Urine Urobilinogen (Up to 0.2) mg/dL Ur Leukocyte Esterase (Negative) Urine RBC (0-2) HPF Urine WBC (0-5) HPF Ur Epithelial Cells (Negative) HPF Urine Crystals (Negative) HPF Urine Bacteria (Negative) HPF Urine Casts (Negative) LPF Urine Mucus (Negative) Ur Culture Indicated? Urine Glucose (Negative) mg/dL Intake and Output - 24 Hour Total 09/08/24 17:02 thru 09/08/24 17:08 Weight 73.936 kg Falls Risk Assessment History of Falls No History 09/08/24 17:40 Contributing Factors No Factors 09/08/24 17:40 Ambulatory Aids Independent 09/08/24 17:40 Tubes/Lines W/no contributing factors 09/08/24 17:40 Gait Evaluation No gait disturbance 09/08/24 17:40 Cognition Cognitive impairment 09/08/24 17:40 Fall Total Score 09/08/24 17:40 Level of Risk Moderate Risk 09/08/24 17:40 Problems (Last Reviewed 09/08/24 @ 17:37 by Nissa Burch MD) Hypertensive urgency (Acute) Pleural effusion (Acute) Hypothyroidism (Chronic) v v v v v v v v v Sending and/or Receiving Nurses: Please use comment section below to note any information pertinent to the patient hand-off not included above. Information / Comments: BP still elevated 207/103. Report received from: Uzma Mcghee RN
[2024-09-09] MEDS: LORazepam 0.5 MG TAB PO ×4 (00:53→23:17)
[2024-09-09] MEDS: Levothyroxine 50 MCG TAB PO (07:02)
[2024-09-09 07:06] LABS: INR 1.1 (0.9-1.1); Prothrombin Time 10.6 sec (9.1-11.1)
--- NOTE | 2024-09-09 07:21 | SCONE_ITS ---
Date of service: 09/09/24 Time of Service: 07:21 Assessment and Plan Assessment and plan (1) Pleural effusion: Status: Acute Assessment and plan: Certainly, Roselia has a new left-sided pleural effusion, with some features concerning for malignancy. We talked about the natural history of pleural effusions, and the role of thoracentesis both in terms of therapeutic benefit, and more importantly in her case that diagnostic value. I explained the nature of the procedure, and did perform a limited ultrasound of the left chest confirming the presence of a large left-sided pleural effusion. I think Roselia and her son had a good appreciation of the procedure, and Roselia was able to provide informed consent. Next, I assisted Roselia to a seated position, using a bedside table and pillow for her comfort. I prepped and draped the left back in the usual fashion. Next, I raised a skin wheal using local anesthetic. I anesthetized down onto the area of the 7th or 8th rib. She tolerated this well. I then made a small skin incision, and introduced a thoracentesis needle catheter system into the pleural space while aspirating. Fluid was dark straw-colored and thin in character. It aspirated very easily. Next I advanced the catheter and withdrew the needle. I aspirated 50 mL of fluid for lab specimens. Next, I affixed drainage tubing, and evacuated the pleural effusion into Vacutainer's. She had a little bit of coughing towards the end of the procedure but otherwise she tolerated this totally fine. The catheter was removed under positive pressure, and an occlusive dressing was applied. There was no significant bleeding. In total, I drained 1350 mL of fluid. Specimens were hand-delivered to the lab for cytology, and other routine thoracentesis labs. History of Present Illness History of Present Illness Chief Complaint: Left-sided pleural effusion Narrative: Roselia is 69 years old. Over the past few weeks, she has noticed increasing fatigue and lethargy. She tells me she just has not felt herself. She has a history of hypothyroidism, and she was undergoing some adjustments to her levothyroxine, which she suspected was contributing to her symptoms. Last night, while checking her blood pressure at home, she noticed that she was quite hypertensive. Far higher than her normal range. She came to the emergency department for evaluation of that. During the workup, she underwent a chest x- ray that demonstrated a new large left pleural effusion. This was followed up with CAT scans with some abnormalities appreciated in her uterus, as well as several areas of the lung adjacent to the pleural effusion, raising the concern for malignancy. I was consulted for diagnostic thoracentesis. Review of Systems Constitutional Constitutional: Reports fatigue, Denies fever(s), Reports lethargy, Reports malaise and Denies night sweats Eyes Eyes: Reports system reviewed and no additional complaints, except as documented ENT Ears, Nose, Mouth, and Throat: Reports system reviewed and no additional complaints, except as documented Cardiovascular Cardiovascular: Denies chest pain at rest, Denies dyspnea on exertion and Denies orthopnea Respiratory Respiratory: Denies chest congestion, Reports cough and Denies dyspnea on exertion Gastrointestinal Gastrointestinal: Reports system reviewed and no additional complaints, except as documented Endocrine Endocrine: Reports fatigue Hematologic/Lymphatic Hematologic/Lymphatic: Denies easy bleeding, Denies easy bruising and Denies lymphadenopathy PFSH All Active Problems (Updated 09/09/24 @ 17:50 by Inna Rondon MD) Endometrial thickening on ultrasound (Acute) Hypertensive urgency (Acute) Pleural effusion (Acute) Hypothyroidism (Chronic) Medical History (Updated 09/09/24 @ 17:50 by Inna Rondon MD) HTN (hypertension) Anxiety Atrial fibrillation Surgical History H/O breast surgery Family History Other Cancer Heart disease Hypertension Social History Smoking/Tobacco Use Status: Never Smoking risk assessment performed?: Yes Alcohol Intake: never Drug use: Never Substance use type: does not use Housing: house Do you feel safe at home: Yes Do you feel safe in your relationship?: Yes Female Reproductive History Menstrual Menopause type: natural (11/2008) History History 2 5 Para 3 Hx # Term Pregnancies 3 Multiple births Hx # Pregnancies Ectopic pregnancies AB induced Hx Number of Living Children 3 AB spontaneous 2 Exam Const General: cooperative, comfortable and no acute distress Orientation: alert, awake and oriented x3 HENMT Head: normal to inspection Resp Effort & Inspection: normal respiratory effort and able to speak in complete sentences Auscultation: diminished lung sounds on the left Percussion: dullness Mid: left and Lower: left Results Last Vital Signs Temp 97.3 F L 09/09/24 03:28 Pulse 91 H 09/09/24 03:28 Resp 18 09/09/24 03:28 BP 144/68 H 09/09/24 03:28 Pulse Ox 92 09/09/24 03:28 Labs 09/08/24 17:50 09/08/24 17:50 Labs: Laboratory Results - last 24 hr 09/08/24 09/08/24 09/08/24 17:50 19:05 20:34 WBC 6.61 RBC 4.71 Hgb 13.9 Hct 39.8 MCV 85 MCH 29.5 MCHC 34.9 RDW 12.0 Plt Count 238 MPV 10.7 Immature Gran % 0.2 Neutrophils % 49.4 Lymphocytes % 39.2 Monocytes % 9.2 Eosinophils % 1.7 Basophils % 0.3 Nucleated RBC % 0.0 Absolute Neutrophils 3.27 Absolute Lymphocytes 2.59 Absolute Monocytes 0.61 Absolute Eosinophils 0.11 Absolute Basophils 0.02 D-Dimer 1801 H Sodium 135 L Potassium 3.8 Chloride 99 Carbon Dioxide 27.5 Anion Gap 8.5 BUN 18 Creatinine 1.0 Est GFR (CKD-EPI 2020) 60.23 Glucose 106 Calcium 9.2 Magnesium 1.9 Total Bilirubin 0.3 AST 20 ALT 18 Alkaline Phosphatase 108 Troponin I 4 5 Cancelled Total Protein 7.8 Albumin 3.5 Lipase 30 TSH 11.78 H Free T4 1.11 Urine Color Urine Clarity Urine pH Ur Specific [place] Urine Protein Urine Ketones Urine Blood Urine Nitrite Urine Bilirubin Urine Urobilinogen Ur Leukocyte Esterase Urine RBC Urine WBC Ur Epithelial Cells Urine Crystals Urine Bacteria Urine Casts Urine Mucus Ur Culture Indicated? Urine Glucose 09/08/24 21:46 WBC RBC Hgb Hct MCV MCH MCHC RDW Plt Count MPV Immature Gran % Neutrophils % Lymphocytes % Monocytes % Eosinophils % Basophils % Nucleated RBC % Absolute Neutrophils Absolute Lymphocytes Absolute Monocytes Absolute Eosinophils Absolute Basophils D-Dimer Sodium Potassium Chloride Carbon Dioxide Anion Gap BUN Creatinine Est GFR (CKD-EPI 2020) Glucose Calcium Magnesium Total Bilirubin AST ALT Alkaline Phosphatase Troponin I Total Protein Albumin Lipase TSH Free T4 Urine Color Yellow Urine Clarity Clear Urine pH 7.5 Ur Specific [place] 1.015 Urine Protein Negative Urine Ketones Negative Urine Blood Trace-intact H Urine Nitrite Negative Urine Bilirubin Negative Urine Urobilinogen 0.2 Ur Leukocyte Esterase Negative Urine RBC 0-2 Urine WBC Negative Ur Epithelial Cells Rare Urine Crystals Negative Urine Bacteria Negative Urine Casts Negative Urine Mucus Negative Ur Culture Indicated? No Urine Glucose Negative Imaging Chest x-ray: report reviewed and image reviewed CT scan - chest: report reviewed and image reviewed
--- NOTE | 2024-09-09 08:51 | INITIAL_ITS ---
Date of service: 09/09/24 Time of Service: 08:51 Care Management Initial Assmt Initial Assessment Reason for Hospitalization: Left sided pleural effusion, Hypertensive urgency Functional Status/Living Situation Patient Presentation: Roselia was awake and sitting up in bed when CM met with her; she is accompanied by her son Matty and daughter Katie and identifies both as being very suppo rtive. Roselia lives is [facility] with Matty and is independent at baseline. She is currently waiting for the results of her recent imaging and planning to have a thoracetisis in the very near future. Roselia is planning to discharge home when she is medically ready for discharge. CM will continue to follow and support discharge needs. Town of Residence: [facility] Resides with: Child (Son Matty) Significant Other/Family: Local Natural Supports: Supportive family Employment Status: Retired ([employer] ) Instrumental Activities of Daily Living (ADLs): Independent Medications Medication Management: No Issues/Barriers identified Physical Functioning/Mobility Assistive Device: None Advance Directives Advance Directives: Do you have an Advance Directive: N 05/25/20 14:14 AD On File at [facility]: N 05/25/20 14:14 Date Asked 09/08/24 09/08/24 17:20 AD Date Reviewed COLST On File at [facility] COLST Date Scanned Code Status Resuscitation Status Full Code Portal Pt does not currently have a portal and education provided: Yes Insurance Coverage/Financial Issues Insurance: Medicare Part A & B - [id number] Care Team Visit Care Team Role Provider Type Adrianna Cm APRN MD [facility] STAFF PHYSICIAN Celia Rhodes Primary Care Provider NON-[facility] STAFF PHYSICIAN Nissa Burch MD Emergency Provider [facility] STAFF PHYSICIAN Paulina Mann MD Admit Provider [facility] STAFF PHYSICIAN Attending Provider Other Providers Discharge Potential Discharge Needs: PCP F/U Appt Anticipated Barriers to Discharge: None Identified Patient/Family Education Needs: Review discharge instructions, discuss Ask Me Three Transportation: Private vehicle Plan: [facility] are contacted. Roselia is waiting to have a thoracetesis. Anticipate, Roselia will discharge home via private vehicle when medically ready for discharge. Pt will follow up with community providers and discharge plan of care as directed. CM will continue to follow. Social Determinants of Health Screening Social Determinants of health last assessed in clinic: 09/09/24 Will the Patient Participate in the Screening?: Yes Do you worry about having a steady place to live?: no Problems where you live: no known problems In the past 12 months, have you had to go without electric, gas, oil or water in your home?: no 1. Within the past 12 months, we worried whether our food would run out before we got money to buy more.: Never true 2. Within the past 12 months, the food we bought just didn't last and we didn't have money to get more.: Never true Has lack of transportation kept you from medical appointments or from doing things needed for daily living?: no Has anyone in your life made you feel unsafe or unsupported?: no How hard is it for you to pay for the very basics like food, housing, medical care, and heating? Would you say it is:: Not hard at all Do you want help finding or keeping work or a job?: I do not need or want help If for any reason you need help with day-to-day activities such as bathing, preparing meals, shopping, managing finances, etc., do you get the help you need?: I don?t need any help How often do you feel lonely or isolated from those around you?: Never Do you speak a language other than [place] Citizen at home?: No Does the patient want assistance with any of the above?: No PFSH All Active Problems (Updated 09/08/24 @ 22:29 by Nissa Burch MD) Hypertensive urgency (Acute) Pleural effusion (Acute) Visit for suture removal (Acute) Laceration (Acute) Discomfort of vulva (Acute) Hypothyroidism (Chronic) Medical History HTN (hypertension) Anxiety Atrial fibrillation Surgical History H/O breast surgery Family History Other Cancer Heart disease Hypertension Social History Smoking/Tobacco Use Status: Never Smoking risk assessment performed?: Yes Alcohol Intake: never Drug use: Never Substance use type: does not use Housing: house Do you feel safe at home: Yes Do you feel safe in your relationship?: Yes Female Reproductive History Menstrual Menopause type: natural (11/2008) History History 5 Para 3 Hx # Term Pregnancies 3 Multiple births Hx # Pregnancies Ectopic pregnancies AB induced Hx Number of Living Children 3 AB spontaneous 2
[2024-09-09] MEDS: Carvedilol 3.125 MG TAB PO ×2 (09:23→21:22)
[2024-09-09] MEDS: hydroCHLOROthiazide 12.5 MG TAB PO (09:23)
[2024-09-09] MEDS: Normal Saline Flush 10 ML SYR IVP ×2 (09:26→21:22)
--- NOTE | 2024-09-09 16:36 | PGE_ITS ---
Date of Service Date of service: 09/09/24 Time of Service: 13:00 Assessment and Plan Assessment and plan (1) Pleural effusion: Status: Acute Assessment and plan: -As per per CT report : Left sided large effusion with pulmonary nodules concerning for metastatic disease from unknown primary -ED discussed the case with oncology who suggested the above imaging and to proceed with thoracentesis- Eliquis on hold -Surgical consult ongoing - Plan to see the patient late in PM- NPO for HS meal -No S&S of respiratory failure -CT abdomen/pelvis with endometrial thickening, concerning for endometrial lesion and no other obvious mass -BENEFIT DIRECTOR consultation and US pelvis completed as per recommendation -Apixaban for a-fib on hold in anticipation of thoracentesis -[facility] [place] contacted in the ED but no recommendation for transfer- consider reach out again s/p thoracentsis results VS outpatient biopsy In the setting of suspected malignancy and increased thrombophilic state it would be beneficial to minimize time off Eliquis (2) Hypertensive urgency: Status: Acute Assessment and plan: No controlled - no hypertensive urgency criteria met VS Q4 H -BP highly elevated prior to presentation and not improved much with usual PO coreg in ED -no evidence of end-organ damage -minimal response 5 mg IVP metoprolol x1 -Questioning anxiety component, received lorazepam earlier- will order low dose PRN -Ongoing prn IV hydralazine (3) Hypothyroidism: Status: Chronic Assessment and plan: -TSH highly elevated similar to levels in 2012- likely more of an inflammatory response vs underdosing of synthroid, continue 50 mcg dose in AM. The patient was on 100 mcg until 2 weeks ago and decreased the dosage after discussing with PCP re: felt sick on the higher dose T4 at 1.11 (4) HTN (hypertension): Assessment and plan: As per point 2 and continue home medicine regimen (5) Anxiety: Assessment and plan: -On home dose fluoxetine -PRN lorazepam (6) Atrial fibrillation: Assessment and plan: -regular on exam/ECG ST as per EKG on admit HR 109 -on home dose of coreg -apixaban on hold Discussed with Dr. Tello Subjective Subjective Patient reports: no new complaints, tolerating liquids well, tolerating a regular diet, voiding w/o difficulty and no bowel movement; denies diarrhea, vomiting, shortness of breath or fever Exam Const General: no acute distress Resp Auscultation: clear to auscultation bilaterally Cardio Rate: regular rate Rhythm: regular rhythm Skin Lesions: no lesions (no obvious lesions) Neuro General: patient oriented x3 and no focal motor deficits Extrem Other: no LE edema BL Psych Appearance: grossly normal Objective Last Vital Signs Temp 36.3 C L 09/09/24 16:28 Pulse 99 H 09/09/24 16:28 Resp 16 09/09/24 16:28 BP 141/94 H 09/09/24 16:28 Pulse Ox 95 09/09/24 16:28 Laboratory Results - last 24 hr 09/08/24 09/08/24 09/08/24 17:50 19:05 20:34 WBC 6.61 RBC 4.71 Hgb 13.9 Hct 39.8 MCV 85 MCH 29.5 MCHC 34.9 RDW 12.0 Plt Count 238 MPV 10.7 Immature Gran % 0.2 Neutrophils % 49.4 Lymphocytes % 39.2 Monocytes % 9.2 Eosinophils % 1.7 Basophils % 0.3 Nucleated RBC % 0.0 Absolute Neutrophils 3.27 Absolute Lymphocytes 2.59 Absolute Monocytes 0.61 Absolute Eosinophils 0.11 Absolute Basophils 0.02 PT INR D-Dimer 1801 H Sodium 135 L Potassium 3.8 Chloride 99 Carbon Dioxide 27.5 Anion Gap 8.5 BUN 18 Creatinine 1.0 Est GFR (CKD-EPI 2020) 60.23 Glucose 106 Calcium 9.2 Magnesium 1.9 Total Bilirubin 0.3 AST 20 ALT 18 Alkaline Phosphatase 108 Troponin I 4 5 Cancelled Total Protein 7.8 Albumin 3.5 Lipase 30 TSH 11.78 H Free T4 1.11 Urine Color Urine Clarity Urine pH Ur Specific [place] Urine Protein Urine Ketones Urine Blood Urine Nitrite Urine Bilirubin Urine Urobilinogen Ur Leukocyte Esterase Urine RBC Urine WBC Ur Epithelial Cells Urine Crystals Urine Bacteria Urine Casts Urine Mucus Ur Culture Indicated? Urine Glucose 09/08/24 09/09/24 21:46 06:28 WBC RBC Hgb Hct MCV MCH MCHC RDW Plt Count MPV Immature Gran % Neutrophils % Lymphocytes % Monocytes % Eosinophils % Basophils % Nucleated RBC % Absolute Neutrophils Absolute Lymphocytes Absolute Monocytes Absolute Eosinophils Absolute Basophils PT 10.6 INR 1.1 D-Dimer Sodium Potassium Chloride Carbon Dioxide Anion Gap BUN Creatinine Est GFR (CKD-EPI 2020) Glucose Calcium Magnesium Total Bilirubin AST ALT Alkaline Phosphatase Troponin I Total Protein Albumin Lipase TSH Free T4 Urine Color Yellow Urine Clarity Clear Urine pH 7.5 Ur Specific [place] 1.015 Urine Protein Negative Urine Ketones Negative Urine Blood Trace-intact H Urine Nitrite Negative Urine Bilirubin Negative Urine Urobilinogen 0.2 Ur Leukocyte Esterase Negative Urine RBC 0-2 Urine WBC Negative Ur Epithelial Cells Rare Urine Crystals Negative Urine Bacteria Negative Urine Casts Negative Urine Mucus Negative Ur Culture Indicated? No Urine Glucose Negative Time Spent with Patient Time Spent with Patient: >50 minutes Time was spent: preparing to see the patient(eg.review tests), obtaining and/or reviewing separately otained hiistory, ordering medications,tests, procedures, referring, communicating with other health palliative care nurse practitioner, indepentently interpreting results, counseling the patient and care coordination
--- NOTE | 2024-09-09 17:40 | W.GYNCONSULT ---
Date of service: 09/09/24 Time of Service: 17:40 Assessment and Plan Assessment and plan (1) Endometrial thickening on ultrasound: Status: Acute Assessment and plan: I had a brief discussion with the patient and 3 family members about the findings on imaging and potential for abnormal uterine cells. There are some reassuring findings given that she is not having any bleeding and the endometrium is thickeded but not hugely so and without any abnormal appearing masses. I think there is a good chance that these findings were incidental. However, I think it is also important that we still sample the endometrium for a thorough evaluation. We discussed that this procedure is much easier in the office setting with the proper bed and equipment. I offered in-pt attempt at the bx but think it will be more comfortable for Roselia in the office setting. I also think it is reasonable to continue her Eliquis as her risk for bleeding is low. I did not do a thorough service employee history given the presence of family members and planned office visit. All their questions were answered to the best of my ability. She will be contacted tomorrow with a time for her appt on . History of Present Illness History of Present Illness Chief Complaint: Thickened endometrium Narrative: Roselia was admitted to [facility] yesterday due to hypertensive emergency with incidental finding of a large left side pleural effusion with pulmonary nodules concerning for metastatic disease from an unknown primary. There was also a thickened endometrium noted on CT. Therefore a sono was done which showed a 13mm heterogenous endometrium and several small fibroids. The pt denies any vaginal bleeding, pelvic or abdominal pain. She does not remember being told she has fibroids but doesn't think she's had a sono since she was with her youngest son almost 40yrs ago. Her hospitalist team is concerned about an endo bx to evaluate for a possible primary cancer. She is off her eliquis today in preparation for the thoracocentesis. PFSH All Active Problems (Updated 09/09/24 @ 17:50 by Inna Rondon MD) Endometrial thickening on ultrasound (Acute) Hypertensive urgency (Acute) Pleural effusion (Acute) Hypothyroidism (Chronic) Medical History (Updated 09/09/24 @ 17:50 by Inna Rondon MD) HTN (hypertension) Anxiety Atrial fibrillation Surgical History H/O breast surgery Family History Other Cancer Heart disease Hypertension Social History Smoking/Tobacco Use Status: Never Smoking risk assessment performed?: Yes Alcohol Intake: never Drug use: Never Substance use type: does not use Housing: house Do you feel safe at home: Yes Do you feel safe in your relationship?: Yes Female Reproductive History Menstrual Menopause type: natural (11/2008) History History 5 Para 3 Hx # Term Pregnancies 3 Multiple births Hx # Pregnancies Ectopic pregnancies AB induced Hx Number of Living Children 3 AB spontaneous 2 Results Last Vital Signs Temp 97.3 F L 09/09/24 16:28 Pulse 99 H 09/09/24 16:28 Resp 16 09/09/24 16:28 BP 141/94 H 09/09/24 16:28 Pulse Ox 95 09/09/24 16:28 Labs 09/08/24 17:50 09/08/24 17:50 Labs: Laboratory Results - last 24 hr 09/08/24 09/08/24 09/08/24 17:50 19:05 20:34 WBC 6.61 RBC 4.71 Hgb 13.9 Hct 39.8 MCV 85 MCH 29.5 MCHC 34.9 RDW 12.0 Plt Count 238 MPV 10.7 Immature Gran % 0.2 Neutrophils % 49.4 Lymphocytes % 39.2 Monocytes % 9.2 Eosinophils % 1.7 Basophils % 0.3 Nucleated RBC % 0.0 Absolute Neutrophils 3.27 Absolute Lymphocytes 2.59 Absolute Monocytes 0.61 Absolute Eosinophils 0.11 Absolute Basophils 0.02 PT INR D-Dimer 1801 H Sodium 135 L Potassium 3.8 Chloride 99 Carbon Dioxide 27.5 Anion Gap 8.5 BUN 18 Creatinine 1.0 Est GFR (CKD-EPI 2020) 60.23 Glucose 106 Calcium 9.2 Magnesium 1.9 Total Bilirubin 0.3 AST 20 ALT 18 Alkaline Phosphatase 108 Troponin I 4 5 Cancelled Total Protein 7.8 Albumin 3.5 Lipase 30 TSH 11.78 H Free T4 1.11 Urine Color Urine Clarity Urine pH Ur Specific [place] Urine Protein Urine Ketones Urine Blood Urine Nitrite Urine Bilirubin Urine Urobilinogen Ur Leukocyte Esterase Urine RBC Urine WBC Ur Epithelial Cells Urine Crystals Urine Bacteria Urine Casts Urine Mucus Ur Culture Indicated? Urine Glucose 09/08/24 09/09/24 21:46 06:28 WBC RBC Hgb Hct MCV MCH MCHC RDW Plt Count MPV Immature Gran % Neutrophils % Lymphocytes % Monocytes % Eosinophils % Basophils % Nucleated RBC % Absolute Neutrophils Absolute Lymphocytes Absolute Monocytes Absolute Eosinophils Absolute Basophils PT 10.6 INR 1.1 D-Dimer Sodium Potassium Chloride Carbon Dioxide Anion Gap BUN Creatinine Est GFR (CKD-EPI 2020) Glucose Calcium Magnesium Total Bilirubin AST ALT Alkaline Phosphatase Troponin I Total Protein Albumin Lipase TSH Free T4 Urine Color Yellow Urine Clarity Clear Urine pH 7.5 Ur Specific [place] 1.015 Urine Protein Negative Urine Ketones Negative Urine Blood Trace-intact H Urine Nitrite Negative Urine Bilirubin Negative Urine Urobilinogen 0.2 Ur Leukocyte Esterase Negative Urine RBC 0-2 Urine WBC Negative Ur Epithelial Cells Rare Urine Crystals Negative Urine Bacteria Negative Urine Casts Negative Urine Mucus Negative Ur Culture Indicated? No Urine Glucose Negative
--- NOTE | 2024-09-09 17:43 | CHAPLAIN ---
I had a brief visit with Roselia. She was resting in bed. Her daughter, Katie, was with her. Katie is an [employer] respiratory therapist. I explained my role and offered support.
[2024-09-09] MEDS: FLUoxetine 20 MG CAP PO (18:21)
[2024-09-09] MEDS: FLUoxetine 10 MG TAB PO (18:21)
[2024-09-09] MEDS: Acetaminophen 325 MG TAB 650 MG PO ×2 (18:35→23:17)
--- NOTE | 2024-09-09 20:51 | DI.RAD_ITS ---
Exam(s) XR PORTABLE CHEST AP EXAM: XR PORTABLE CHEST AP CLINICAL HISTORY: s/p left thoracentesis TECHNIQUE: 2D digital imaging was performed. COMPARISON: CT CT CHEST PE CTA from 09/08/2024 CR XR CHEST 2V PA LATERAL from 09/08/2024 FINDINGS: LUNGS: The right lung is clear. The patient is now status post left thoracentesis with significant i nterval decrease in size of the left pleural effusion common now small. Increased left basilar densi ties consistent with atelectasis however pneumonia is not excluded. No pneumothorax. HEART: Left heart border is partially obscured. AORTA: Normal diameter. BONES: Unremarkable for age. Soft tissues: Unremarkable. IMPRESSION: Significant decrease in size of left pleural effusion status post thoracentesis. No pneumothorax. DATA REPOSITORY: RADIATION DOSE DELIVERED:
[2024-09-09 20:56] LABS: Source: Pleural; pH Body Fluid 7
[2024-09-09 21:06] LABS: Clarity Cloudy; Source Pleural
[2024-09-09 21:07] LABS: Nucleated Cells 5852 uL (0)
[2024-09-09 21:09] LABS: Mononuclear Cells 98 %; Polynuclear Cells 2 %
--- NOTE | 2024-09-09 21:15 | DI.VRAD_ITS ---
PROCEDURE INFORMATION: Exam: XR Chest Exam date and time: 09/09/2024 8:50 PM Age: 69 years old Clinical indication: Other: S/P L thoracentesis TECHNIQUE: Imaging protocol: Radiologic exam of the chest. Views: 1 view. COMPARISON: CT CHEST PE CTA 09/08/2024 7:06 PM FINDINGS: Lungs: Left basilar atelectasis versus infiltrate. Pleural spaces: Small layering residual left-sided pleural effusion after thoracentesis. No pneumothorax. Heart/Mediastinum: Unremarkable. No cardiomegaly. Bones/joints: Unremarkable. IMPRESSION: 1. Small layering residual left-sided pleural effusion after thoracentesis. 2. Left basilar atelectasis versus infiltrate. Dictated and Authenticated by: Kerri Vazquez MD. Orderin Chris Schneider MD
[2024-09-10] MEDS: Levothyroxine 50 MCG TAB PO (06:22)
[2024-09-10 06:25] LABS: Abs Immature Grans 0.02 10^3/uL (0.0-0.06); Absolute Basophil Count 0.02 10^3/uL (0.0-0.2); Absolute Eosinophil Count 0.05 10^3/uL (0.0-0.7); Absolute Lymphocyte Count 2.41 10^3/uL (1.2-3.4); Absolute Monocyte Count 0.58 10^3/uL (0.1-0.8); Absolute Neutrophil Count 5.23 10^3/uL (1.2-6.7); Basophils % 0.2 %; Eosinophils % 0.6 %; HCT 36.2 % (36.0-46.0); HGB 12.7 g/dL (11.2-15.7); Immature Grans % 0.2 %; MCH 29.7 pg (27.0-33.0); MCHC 35.1 % (32.0-36.0); MCV 85 fL (80-95); MPV 10.7 fL (8.0-11.0); Platelet Count 194 10^3/uL (130-400); RBC 4.27 10^6/uL (3.93-5.22); RDW 12.1 % (11.7-14.6); RDW-SD 37.2 fL; WBC 8.31 10^3/uL (4.4-10.8)
[2024-09-10 06:40] LABS: Anion Gap 8.3 mmol/L (3-11); BUN 19 mg/dL (7-18); CO2 26.7 mmol/L (21.0-32.0); Calcium 8.9 mg/dL (8.5-10.1); Chloride 98 mmol/L (98-107); Estimated GFR 60.23 (mL/min/1.73m2); Glucose 101 mg/dL (74-106); Magnesium 1.9 mg/dL (1.8-2.4); Potassium 3.3 mmol/L (3.5-5.1); Sodium 133 mmol/L (136-145)
[2024-09-10 07:51] VITALS: BP 134/78; PULSE 82; RESP 18; TEMP 37; O2SAT 90
[2024-09-10 07:56] VITALS: BP 134/78; O2SAT 90
[2024-09-10 08:25] VITALS: BP 123/77; PULSE 89; RESP 16; TEMP 36.2; O2SAT 93
[2024-09-10] MEDS: hydroCHLOROthiazide 12.5 MG TAB PO (08:59)
[2024-09-10] MEDS: Carvedilol 3.125 MG TAB PO (08:59)
[2024-09-10] MEDS: Normal Saline Flush 10 ML SYR IVP (09:00)
--- NOTE | 2024-09-10 09:04 | PDOC.CMDIS ---
Date of service: 09/10/24 Time of Service: 09:04 LACE Index Scoring Tool Questions: Length of Stay (in days): 1 Was the patient admitted via the E.D.?: Yes E.D. Visits: 1 Answers: Total Score: 5 Risk of Readmission: Low Risk Care Management Discharge Plan Reason for Hospitalization: Left sided pleural effusion, Hypertensive urgency Discharge Plan: Roselia is discharged home via private vehicle with family. Pt will follow up with her PCP, oncology and other community providers and her discharge plan of care as directed. No new services are indicated at the time of discharge. Patient/Family Education Needs: Review discharge instructions and plan to follow up after discharge. Discuss ask me three. SDOH Health Related Social Needs: No Data to Display
[2024-09-10] MEDS: Apixaban 5 MG TAB PO (10:13)
[2024-09-10] MEDS: LORazepam 0.5 MG TAB PO (10:18)
--- NOTE | 2024-09-10 10:22 | NUR.NOTE ---
Patient is currently sitting up in bed playing on her computer. She has been encouraged to sit in her chair for lunch. PT requested a PRN Ativan for anxiety. During bedside rounding pt has expresses multiple times she is ready to go home and that she would like to shower. Shower was approved from provider, she is on the list to receive one. Nursing Note:
--- NOTE | 2024-09-10 11:50 | DSE_ITS ---
Date of service: 09/10/24 Time of Service: 11:50 DS: Diagnosis Discharge Diagnosis (1) Pleural effusion: Status: Acute Discharge Plan Disposition Patient Disposition: Home Condition: Improving Discharge Details Reason For Visit: pleural effusion/lung nodules Admit Date/Time: 09/08/24 23:29 Admit Provider: Paulina Mann Attending Provider: Paulina Mann Primary Care Provider: Celia Rhodes Hospital Course Hospital Course: 69-year-old female with history of atrial fibrillationon Eliquis , hypertension, thyroid disease currently undergoing dosing adjustment of levothyroxine presented to the ED for evaluation of hypertension and feeling off on 09/08/24. Blood pressures met hypertensive urgency criteria w/o end organ perfusion signs and control was achieved with IV hydralazine and lorazepam for anxiety. EKG showed ST HR 109 and was negative for coronary occlusions with negative troponins. Blood work was unremarkable except for elevated TSH with a normal T4. CAT scan was positive for a large pleural effusion on the left side w mediastinal shift and new nodules findings, some abnormalities appreciated in her uterus as well. No increased oxygen requirement noted[place] [facility] [place], surgery was consulted and the patient admitted to the medical surgical floor with telemetry for hypertensive urgency, thoracentesisis and pleural fluid studies while anticoagulation with Eliquis was held. Thoracentesis was completed by Dr. Wyatt Perez w/o complication; 1350 cc collected and sent to [facility] for pathology, cultures and cytology studies. Blood pressure remained controlled on current home medicine regimen.Gynecology consult completed with further imaging and appointment made in women health with Dr. Rondon. [place] [facility] [place] discussed and to be completed today with care management. The patient is hemodynamically stable and will be discharged home today and will follow-up with PCP with 7 days of discharge. Recommendations for PCP follow-up Follow-up on oncology referral [place] [facility] [place]ural effusion and lung nodules TSH/T4 testing Gynecology outpatient appointment Lorazepam refill if needed Discussed with Dr. Tello Home Meds and New Rx's Prescriptions: New lorazepam 0.5 mg Tablet 0.5 mg PO BID Qty: 10 0RF Continued Eliquis 5 mg Tablet 5 mg PO BID carvedilol 3.125 mg Tablet 3.125 mg PO BID levothyroxine 50 mcg tablet 50 mcg PO DAILY Patient Comments: TAKE ONE TABLET BY MOUTH EVERY DAY fluoxetine 10 mg capsule 10 mg PO DAILY Patient Comments: TAKE ONE CAPSULE BY MOUTH EVERY DAY hydrochlorothiazide 12.5 mg capsule 12.5 mg PO DAILY Patient Comments: TAKE ONE CAPSULE BY MOUTH EVERY DAY fluoxetine 20 mg capsule 30 mg PO DAILY Patient Comments: TAKE ONE CAPSULE BY MOUTH EVERY DAY Discharge Instructions Referrals: Inna Rondon MD [ [facility]YSICIAN] - 09/14/24 10:20 am Celia Rhodes [Primary Care Provider] - (Follow-up within 7 days of discharge, please) Activity:: Activity as Tolerated Equipment/Supplies:: No Equipment Needed Diet:: heart healthy Discharge Orders Discharge Orders: Discharge Order (Routine); Ordered 09/10/24 Ordered By: Adrianna Cm DS: Summary Time Spent with Patient providing and/or coordinating discharge services: Greater than 30 minutes Status at Discharge Functional status at discharge: independent ambulation Overall status at discharge: patient is progressing back to baseline Mental Status: mental status grossly normal Speech and Movement: speech and movement normal Mood: congruent mood and anxious mood Affect: normal affect, sad and anxious affect Quality:SDOH Health Related Social Needs: No Data to Display Exam Const General: no acute distress Resp Auscultation: clear to auscultation bilaterally and diminished lung sounds on the left in the lower lung bell Cardio Rate: regular rate Rhythm: regular rhythm Skin Lesions: no lesions (no obvious lesions) Neuro General: patient oriented x3 and no focal motor deficits Extrem Other: no LE edema BL Psych Appearance: grossly normal Mental Status: mental status grossly normal Speech and Movement: speech and movement normal Mood: congruent mood and anxious mood Affect: normal affect, sad and anxious affect DS: Data Vitals/I&O Vitals and I&O: Vital Signs Temperature 36.2 C L 09/10/24 08:25 Temperature Source Tympanic 09/10/24 08:25 Pulse 89 09/10/24 08:25 Pulse Rhythm Regular 09/09/24 00:23 Pulse 90 09/09/24 00:10 Respiratory Rate 16 09/10/24 08:25 Respiratory Effort Normal 09/09/24 00:23 Respiratory Depth Normal 09/09/24 00:23 Respiratory Pattern Normal 09/09/24 00:23 Blood Pressure 123/77 09/10/24 08:25 Blood Pressure Mean 92 09/10/24 08:25 Blood Pressure Position Supine 09/08/24 22:53 Pulse Oximetry 93 09/10/24 08:25 Oxygen Delivery Method Room Air 09/10/24 08:25 Oxygen Flow Rate 0 09/10/24 08:25 Pain Level 0 09/10/24 08:25 Comment Patient requested to be left alone for vital if sleeping. Will get vs when patient wakes. 09/09/24 23:08 Comment MD aware of BP + HR 09/08/24 20:31 Intake & Output 09/09/24 09/09/24 09/10/24 11:59 23:59 11:59 Intake Total Output Total 600 / 600 Balance -600 / -600 Weight 73.9 kg Intake: IV Output: Urine 600 / 600 Other: Urine Color Yellow Yellow Yellow Urine Appearance Clear Clear Clear Urine Odor Normal Normal Comment pt is independent to the toilet Data Completed and Pending Labs on day of discharge: Labs from last 24 hours 09/10/24 09/09/24 09/09/24 06:12 20:31 20:31 WBC 8.31 RBC 4.27 Hgb 12.7 Hct 36.2 MCV 85 MCH 29.7 MCHC 35.1 RDW 12.1 Plt Count 194 MPV 10.7 Immature Gran % 0.2 Neutrophils % 63.0 Lymphocytes % 29.0 Monocytes % 7.0 Eosinophils % 0.6 Basophils % 0.2 Nucleated RBC % 0.0 Absolute Neutrophils 5.23 Absolute Lymphocytes 2.41 Absolute Monocytes 0.58 Absolute Eosinophils 0.05 Absolute Basophils 0.02 Sodium 133 L Potassium 3.3 L Chloride 98 Carbon Dioxide 26.7 Anion Gap 8.3 BUN 19 H Creatinine 1.0 Est GFR (CKD-EPI 2020) 60.23 Glucose 101 Calcium 8.9 Magnesium 1.9 Fluid Type Pending Fluid Source Pleural Pleural Fluid Color Yellow Fluid Clarity Cloudy Fluid pH 7 Fluid WBC 5852 Fld Polynuclear WBCs % 2 Fluid Mononuclear Cell 98 Fluid Glucose Pending Fluid Total Protein Pending Fluid Albumin Pending Fluid LDH Pending AFB Smear Pending AFB Culture Final Res Pending Path Cons Comment Pending 09/09/24 20:31 Pleural - Left Anaerobic Culture - Pending Preliminary micro results at discharge 09/09/24 20:31 Thoracentesis Body Fluid Culture - Preliminary 09/09/24 20:31 Pleural - Left Anaerobic Culture - Pending PFSH All Active Problems (Updated 09/09/24 @ 17:50 by Inna Rondon MD) Endometrial thickening on ultrasound (Acute) Hypertensive urgency (Acute) Pleural effusion (Acute) Hypothyroidism (Chronic) Medical History (Updated 09/09/24 @ 17:50 by Inna Rondon MD) HTN (hypertension) Anxiety Atrial fibrillation Surgical History H/O breast surgery Family History Other Cancer Heart disease Hypertension Social History Smoking/Tobacco Use Status: Never Smoking risk assessment performed?: Yes Alcohol Intake: never Drug use: Never Substance use type: does not use Housing: house Do you feel safe at home: Yes Do you feel safe in your relationship?: Yes Female Reproductive History Menstrual Menopause type: natural (11/2008) History History 5 Para 3 Hx # Term Pregnancies 3 Multiple births Hx # Pregnancies Ectopic pregnancies AB induced Hx Number of Living Children 3 AB spontaneous 2 Time Spent with Patient Time Spent with Patient: 70-84 minutes4 Time was spent: preparing to see the patient(eg.review tests), obtaining and/or reviewing separately otained hiistory, ordering medications,tests, procedures, referring, communicating with other health medical care evaluation specialist, indepentently interpreting results, counseling the patient and care coordination
--- NOTE | 2024-09-10 12:35 | NUR.NOTE ---
Nursing Note: Documentation by Nancy Jenkins LPN student, reviewed. Agree with assessment.
[2024-09-10 17:59] LABS: Albumin, Body FLuid 2.6 g/dL (See Note)
[2024-09-10 18:02] LABS: Glucose, Fluid 55 mg/dL (See Note)
[2024-09-12 11:49] LABS: Fluid Type PLEURAL; Protein,Total, BF 4.7 g/dL
[2024-09-12 14:46] LABS: Fluid Type PLEURAL; Lactate Dehydrogenase (LD), BF 1086 U/L
== END 2024-09-10 12:49 | disposition home or self-care (01) | DRG 188 ==
LOC: ER 09-09 00:12 → MS 09-09 00:17
PROVIDERS: Surgery; Admitting Provider Family Medicine; Emergency Provider Emergency Medicine Emergency Medical Services; PCP Family Medicine; Responsible Provider Nurse Practitioner Acute Care; Visit Provider Family Medicine
DX: J90 Pleural effusion, not elsewhere classified (principal); I16.0 Hypertensive urgency; E03.9 Hypothyroidism, unspecified; I10 Essential (primary) hypertension; F41.9 Anxiety disorder, unspecified; I48.91 Unspecified atrial fibrillation; R93.89 Abnormal findings on diagnostic imaging of other specified body structures; R91.8 Other nonspecific abnormal finding of lung field; Z79.01 Long term (current) use of anticoagulants
CPT/HCPCS: 32554; 00123; 36415; 71275; 80048; 80053; 82042; 83690; 87116; 87206; 93005; 96374; 99223; 99285; 71045; 71046; 74177; 76830; 76856; 81003; 81015; 81373; 83615; 83735; 83986; 84157; 84439; 84443; 84484; 85025; 85379; 85610; 87070; 87075; 87205; 88104; 88305; 88361; 89051; 93010; 99233; 99239; J3490

== ENCOUNTER 2024-09-14 11:16 | Outpatient (REF) | payer MEDICARE, SELFPAY ==
--- NOTE | 2024-09-14 11:15 | ENDOMET_PTH ---
PATIENT: Roselia Kaur LOC: [facility] U#:[id number] AGE/SX: 69/F ROOM: RE09/14/[address]: Inna Rondon MD : [id number] BED: DIS: 09/14/2024 SPEC #: [id number] RECD: 09/14/24 13:02 STATUS: AMRITA CARTAGENA #: [id number] ANANT: 09/14/24 11:[address]: Inna Rondon DEPT: Surgical Specimen RECD BY: Leatha De Santiago ENTERED: 09/14/24 13:03 SP TYPE: Endomet OTHR DR: Celia Rhodes Tissues: 1 - ENDOMETRIUM BX/ROSENDO Procedures: GROSS AND MICRO LEVEL 4 Comments: [id number]
== END 2024-09-14 11:17 | disposition home or self-care (01) ==
LOC: LBN 11:16
PROVIDERS: PCP Family Medicine; Visit Provider Obstetrics & Gynecology
DX: R93.89 Abnormal findings on diagnostic imaging of other specified body structures (principal)
CPT/HCPCS: 88305

== ENCOUNTER 2024-09-21 12:41 | Outpatient (CLI) | payer MEDICARE, SELFPAY ==
--- NOTE | 2024-09-21 | DI.RAD_ITS ---
Exam(s) XR CHEST 2V PA LATERAL EXAM: XR CHEST 2V PA LATERAL CLINICAL HISTORY: J90 Pleural effusion, not elsewhere classified. TECHNIQUE: 2D digital imaging was performed. COMPARISON: CR,XR XR PORTABLE CHEST AP from 09/09/2024 FINDINGS: 2 views: Heart size is normal. The mediastinum is not widened. Right lung is clear. There is a large left pleural effusion which has significant further increased in size when compared to chest x-ray of 09/09/2024. There is subjacent volume loss and infiltrate. There is no pneumothorax. There is slight shift of the trachea to the opposite-right side. IMPRESSION: Significant increase in size of left pleural effusion when compared to 09/09/2024. DATA REPOSITORY: RADIATION DOSE DELIVERED:
== END 2024-09-21 13:01 ==
LOC: DI 12:41
PROVIDERS: PCP Family Medicine; Visit Provider Family Medicine
DX: J90 Pleural effusion, not elsewhere classified (principal)
CPT/HCPCS: 71046

== ENCOUNTER 2024-09-21 16:12 | Outpatient (REF) | payer MEDICARE, SELFPAY ==
[2024-09-21 17:33] LABS: FREE T4 1.21 ng/dL (0.76-1.46); TSH 5.92 uIU/mL (0.36-3.74)
[2024-09-22 18:40] LABS: T3, Total 106 ng/dL (97-169)
== END 2024-09-21 16:13 | disposition home or self-care (01) ==
LOC: NCHCN 16:12
PROVIDERS: PCP Family Medicine; Visit Provider Family Medicine
DX: E03.9 Hypothyroidism, unspecified (principal)
CPT/HCPCS: 84439; 84443; 84480

== ENCOUNTER 2024-10-22 15:19 | Emergency (ER) | payer MEDICARE, SELFPAY ==
[2024-10-22] VITALS (54 sets, daily range): BP systolic 148–186; BP diastolic 77–95; PULSE 100–121; RESP 12–27; TEMP 36.6; O2SAT 91–94
[2024-10-22 16:00] LABS: Abs Immature Grans 0.03 10^3/uL (0.0-0.06); HCT 35.7 % (36.0-46.0); HGB 12.6 g/dL (11.2-15.7); Immature Grans % 0.3 %; MCH 29.8 pg (27.0-33.0); MCHC 35.3 % (32.0-36.0); MCV 84 fL (80-95); MPV 9.8 fL (8.0-11.0); Platelet Count 171 10^3/uL (130-400); RBC 4.23 10^6/uL (3.93-5.22); RDW 12.1 % (11.7-14.6); RDW-SD 37.2 fL; WBC 9.37 10^3/uL (4.4-10.8)
--- NOTE | 2024-10-22 16:08 | W.ED.GENAD ---
Discharge Plan Disposition Patient Disposition: Transfer-Acute Inpatient Care Specific Acute Inpt Facility: [facility] Condition: Stable Discharge Details Clinical Impression: Pleural effusion, Hypoxemia Primary Care Provider: Celia Rhodes ED Provider: Js Price Home Meds and New Rx's Prescriptions: No Action levothyroxine 50 mcg tablet 100 mcg PO DAILY Patient Comments: TAKE ONE TABLET BY MOUTH EVERY DAY fluoxetine 20 mg capsule 20 mg PO DAILY Eliquis 5 mg Tablet 5 mg PO BID carvedilol 3.125 mg Tablet 3.125 mg PO BID hydrochlorothiazide 12.5 mg capsule 12.5 mg PO DAILY Patient Comments: TAKE ONE CAPSULE BY MOUTH EVERY DAY lorazepam 0.5 mg Tablet 0.5 mg PO BID Qty: 10 0RF folic acid 1 mg tablet 1 mg PO DAILY Patient Comments: TAKE ONE TABLET BY MOUTH EVERY DAY prochlorperazine maleate 10 mg tablet 10 mg PO Q6H PRN Patient Comments: TAKE ONE TABLET BY MOUTH EVERY 6 HOURS NEEDED FOR NAUSEA doxycycline monohydrate 100 mg tablet 100 mg PO BID Bucapsol 10 mg capsule 10 mg PO BID liothyronine 25 mcg tablet 5 mcg PO DAILY Patient Comments: TAKE ONE TABLET BY MOUTH EVERY DAY HPI General Date/Time Provider Initiated Documentation: 10/22/24 15:29. HPI Narrative: 69-year-old female with a new diagnosis of lung cancer with metastatic lesions, recent PET scan confirming this, and plan for chemotherapy starting in 3 days on Friday, with a known left-sided pleural effusion with current pleural drain in place usually getting off 250 cc/day, who is currently on doxycycline twice daily for infection prevention, and is scheduled to start taking steroids regularly, who also has a history of atrial fibrillation on Eliquis, who presents today for evaluation of shortness of breath and hypoxemia. Today at home her oxygenation was around 86% which was atypical for her and she felt slightly short of breath. She came in for further assessment. Upon arrival oxygenation is normal in the 90s, however she still has mild shortness of breath. She denies any change in medications otherwise, she denies any severe chest pain. They do state that over the last day or so they have been getting about 75 to 100 mL less output per day from the drain. No other complaints at this time. No other modifying factors. Related Data Home Medications ?Medication ?Instructions ?Recorded ?Confirmed apixaban 5 mg tablet (Eliquis) 5 mg PO BID 01/22/19 10/22/24 carvedilol 3.125 mg tablet 3.125 mg PO BID 01/28/19 10/22/24 hydrochlorothiazide 12.5 mg capsule 12.5 mg PO DAILY 09/10/24 10/22/24 lorazepam 0.5 mg tablet 0.5 mg PO BID #10 tabs 09/10/24 10/22/24 fluoxetine 20 mg capsule 20 mg PO DAILY 09/21/24 10/22/24 levothyroxine 50 mcg tablet 100 mcg PO DAILY 09/21/24 10/22/24 buspirone 10 mg capsule (Bucapsol) 10 mg PO BID 10/22/24 10/22/24 doxycycline monohydrate 100 mg 100 mg PO BID 10/22/24 10/22/24 tablet folic acid 1 mg tablet 1 mg PO DAILY 10/22/24 10/22/24 liothyronine 25 mcg tablet 5 mcg PO DAILY 10/22/24 10/22/24 prochlorperazine maleate 10 mg 10 mg PO Q6H PRN 10/22/24 10/22/24 tablet Previous Rx's ?Medication ?Instructions ?Recorded lorazepam 0.5 mg tablet 0.5 mg PO BID #10 tabs 09/10/24 Allergies Allergy/AdvReac Type Severity Reaction Status Date / Time Sulfa (Sulfonamide Allergy Intermediate Swelling/Ed Unverified 10/22/24 15:28 Antibiotics) soha General Stated Complaint: SOB ELAINE: 3 Exam Narrative Exam Narrative: 1.Const: Well-nourished, Well-developed, appearing stated age 2.Eyes: PERRL, no conjunctival injection, and symmetrical lids. 3.ENT: Atraumatic external nose and ears. Moist MM. Neck: Symmetric, trachea midline, No thyromegaly. 4.CVS: +S1/S2, Peripheral pulses 2+ and equal in all extremities. Brisk capillary refill in all extremities. 5.RESP: Unlabored respiratory effort. Crackles seen in the left lung field, right lung field is clear. Pleural drain is in place with no erythema or active leaking. 6.GI: Soft, Nontender/Nondistended, No hepatosplenomegaly. No guarding or rebound. 7.MSK: Normocephalic/Atraumatic, Extremities w/o deformity or ttp No cyanosis or clubbing, Normal movement of all extremities 8.Skin: Warm, Dry. No rashes or lesions. 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 Sensation grossly intact, no focal neurologicPatient Course Vital Signs Vital signs: Vital Signs Temperature 36.6 C 10/22/24 15:23 Pulse 119 H 10/22/24 15:23 Respiratory Rate 16 10/22/24 15:23 Blood Pressure 149/95 H 10/22/24 15:23 Pulse Oximetry 94 10/22/24 15:23 Temperature 36.6 C 10/22/24 15:28 Pulse 119 H 10/22/24 15:28 Respiratory Rate 22 10/22/24 15:54 Respiratory Effort Incrsd Work of Breathing 10/22/24 15:54 Respiratory Depth Shallow 10/22/24 15:54 Blood Pressure 149/95 H 10/22/24 15:28 Pulse Oximetry 94 10/22/24 15:28 Oxygen Delivery Method Room Air 10/22/24 15:28 Oxygen Flow Rate 0 10/22/24 15:28 Pain Level 0 10/22/24 15:28 Lab/Test Results Lab/Test Results: Laboratory Tests Range/Units 10/22/24 15:52 WBC (4.4-10.8) 10^3/uL 9.37 RBC (3.93-5.22) 10^6/uL 4.23 Hgb (11.2-15.7) g/dL 12.6 Hct (36.0-46.0) % 35.7 L MCV (80-95) fL 84 MCH (27.0-33.0) pg 29.8 MCHC (32.0-36.0) % 35.3 RDW (11.7-14.6) % 12.1 Plt Count (130-400) 10^3/uL 171 MPV (8.0-11.0) fL 9.8 Immature Gran % % 0.3 Neutrophils % % 67.5 Lymphocytes % % 20.5 Monocytes % % 10.2 Eosinophils % % 1.2 Basophils % % 0.3 Nucleated RBC % (0.0-0.3) % 0.0 Absolute Neutrophils (1.2-6.7) 10^3/uL 6.32 Absolute Lymphocytes (1.2-3.4) 10^3/uL 1.92 Absolute Monocytes (0.1-0.8) 10^3/uL 0.96 H Absolute Eosinophils (0.0-0.7) 10^3/uL 0.11 Absolute Basophils (0.0-0.2) 10^3/uL 0.03 Medical Decision Making 69-year-old female with a new diagnosis of lung cancer with metastatic lesions, recent PET scan confirming this, and plan for chemotherapy starting in 3 days on Friday, with a known left-sided pleural effusion with current pleural drain in place usually getting off 250 cc/day, who is currently on doxycycline twice daily for infection prevention, and is scheduled to start taking steroids regularly, who also has a history of atrial fibrillation on Eliquis, who presents today for evaluation of shortness of breath and hypoxemia. Today at home her oxygenation was around 86% which was atypical for her and she felt slightly short of breath. She came in for further assessment. Upon arrival oxygenation is normal in the 90s, however she still has mild shortness of breath. She denies any change in medications otherwise, she denies any severe chest pain. They do state that over the last day or so they have been getting about 75 to 100 mL less output per day from the drain. No other complaints at this time. No other modifying factors. Physical exam demonstrates mild crackles on the left but the thoracic drain otherwise appears intact and stable. No leaking. Concern for potential effusion with loculations. CTA was ordered and shows evidence of a loculated pleural effusion, with near complete collapse of the left upper lobe, secondary to the ostracized loculated effusion. Drain does not reach this area. While here the patient initially was at 94%, but had no hypoxemia. Unfortunately during her time here she had a gradual transition from 94, 93, to 92%. We did get her up and within 2 or 3 steps she immediately decompensates down to the mid 80s. We did contact [facility] and discussed the case with pulmonology Dr. Rockwell, and with these change s he does recommend transfer for thoracentesis and potential repeat placement of drain. I did contact the medicine service at [facility] and spoke with Dr. Connie Sam, and he accepts patient for transfer. Patient will be transferred for further definitive pulmonary management. I have extensively reviewed the treatment plan with the patient. I have addressed all patient concerns at this time. I have also discussed the plan with the admitting physician and they agree with the current assessment and plan and have agreed to assume responsibility for the patient. All parties demonstrate verbal understanding and agreement with our assessment and plan at this time. The documentation in this chart was dictated using Telepo dictation software. Please excuse any dictation errors. At time of transfer the patient was reassessed and continued to demonstrate No signs of acute respiratory distress requiring intubation, hemodynamic instability requiring pressor support, or rapidly declining mental status. FINDINGS: CHEST: PULMONARY ARTERIES: There are no obvious intraluminal filling defects to suggest acute pulmonary emboli. LUNGS: There is now collapse of the left upper lobe and loculated pleural effusion occupying the upper left hemithorax, this accounting for the density described on today's chest x-ray. This appears to been partial communication with the large amount of pleural effusion more inferiorly in the left hemithorax. The lower aspect of the left pleural effusion has moderately decreased in size and this is related to the percutaneous pleural drainage catheter which is now present. In the opposite-left lung there is a non loculated small pleural effusion which was not previously present on the 09/08/2024 study. There is no significant infiltrate nor mass in the right lung. MEDIASTINUM: There is bilateral hilar adenopathy. There is also subcarinal adenopathy and right paratracheal adenopathy. CARDIAC: Heart size is upper normal. There is no pericardial effusion.Caliber of the thoracic aorta is within normal limits. No evidence of dissection. There is no significant shift of the interventricular septum. There is no reflux of IV contrast into the intrahepatic IVC. PARTIALLY VISUALIZED UPPERMOST ABDOMEN: There is no ascites in the partially visualized upper abdomen. OSSEOUS: No significant osseous lesions.No fractures evident.. IMPRESSION: 1. Compared to prior CT scan of 09/08/2024 there has been interval placement of a drainage catheter in the lower left pleural space. The size of the lower left hemithorax pleural effusion has moderately decreased but there is now prominent pleural effusion in the superior aspect of the left hemithorax which is associated with collapse of the left upper. I suspect this is the reason this patient is experiencing increasing shortness of breath.. If clinically indicated this partially loculated left upper pleural effusion can be drained by placement of a separate pigtail drainage catheter in the upper pleural space. There is also partial collapse of the left lower lobe again noted. 2. There is no evidence of acute pulmonary emboli. 3. Small right pleural effusion is now evident which was not previously present on 09/08/2024. Report called by myself to ER physician 10/22/2024 at 4:59 p.m. Quality:SDOH Health Related Social Needs: Health related social needs risk of homeless lonely/isolated Health related social needs details recent CA dx PFSH All Active Problems (Updated 10/22/24 @ 20:41 by Js Price DO) Hypoxemia (Acute) Pleural effusion (Acute) Lung cancer (Chronic) Endometrial thickening on ultrasound (Acute) Benign endo bx 09/14/24 Hypertensive urgency (Acute) Pleural effusion (Acute) Hypothyroidism (Chronic) Medical History (Updated 10/22/24 @ 20:41 by Js Price DO) Tubular adenoma of colon Hx of hemorrhoids HTN (hypertension) Anxiety Atrial fibrillation Surgical History (Updated 09/21/24 @ 09:11 by Leonor Perez RN) History of colonoscopy with polypectomy (~10/08/18) Steven Conrad H/O breast surgery Family History Other Cancer Heart disease Hypertension Social History Smoking/Tobacco Use Status: Never Smoking risk assessment performed?: Yes Alcohol Intake: never Drug use: Never Substance use type: does not use Housing: house Do you feel safe at home: Yes Do you feel safe in your relationship?: Yes Female Reproductive History Menstrual Menopause type: natural (11/2008) History History 5 Para 3 Hx # Term Pregnancies 3 Multiple births Hx # Pregnancies Ectopic pregnancies AB induced Hx Number of Living Children 3 AB spontaneous 2 Past Pregnancies Del. Date GA/Weeks # Preg Succ Route Wgt Sex Labor Lgth Anesthesia Location Prov Complic 06/22/73 Yes 4706.021 g Female [place] 05/25/75 Yes 4592.623 g Female [place] 10/19/84 Yes 3572.04 g Male [facility] Delivery Date: 06/22/73 Last Updated by: ELVIRA Oconnor Delivery Date: 05/25/75 Last Updated by: ELVIRA Oconnor Delivery Date: 10/19/84 Last Updated by: ELVIRA Oconnor
[2024-10-22 16:17] LABS: ALT 23 U/L (14-59); AST 25 U/L (15-37); Albumin 2.4 g/dL (3.4-5.0); Alkaline Phosphatase 121 U/L (46-116); Anion Gap 9.8 mmol/L (3-11); BUN 14 mg/dL (7-18); Bilirubin, Total 0.3 mg/dL (0.2-1.0); CO2 26.2 mmol/L (21.0-32.0); Calcium 8.6 mg/dL (8.5-10.1); Chloride 101 mmol/L (98-107); Estimated GFR 92.41 (mL/min/1.73m2); Glucose 108 mg/dL (74-106); Potassium 3.6 mmol/L (3.5-5.1); Sodium 137 mmol/L (136-145); Total Protein 6.3 g/dL (6.4-8.2)
--- NOTE | 2024-10-22 16:19 | DI.RAD_ITS ---
Exam(s) XR PORTABLE CHEST AP EXAM: XR PORTABLE CHEST AP CLINICAL HISTORY: SOB, hx lung CA, effusions and drain. TECHNIQUE: 2D digital imaging was performed. COMPARISON: CT CT ABDOMEN PELVIS W from 09/08/[address] CHEST PE CTA from 09/08/2024 CR,XR XR PORTABLE CHEST AP from 09/09/2024 CR XR CHEST 2V PA LATERAL from 09/21/2024 FINDINGS: Single AP portable view. Mild cardiomegaly. Right lung is relatively clear but there is good noted infiltrate in the lower left lung field and there is now a large relatively homogeneous mass density in the upper half of the left hemithorax.. This is not associated with overlying rib destruction. It is most probably a reaccumulated (patient has had prior thoracentesis) loculated pleural effusion. However, cannot truly exclude a new mass. IMPRESSION: Large no abnormal density in the upper left lung field as described above. If clinically indicated follow-up CT scan can be performed for better delineation and as to whether this is lung mass or loculated pleural fluid. Are also increased lung markings in the left lower lobe retrocardiac region and a smaller dependent left pleural effusion. DATA REPOSITORY: RADIATION DOSE DELIVERED:
[2024-10-22] MEDS: Omnipaque 350 MG/ML 100 ML BTL 75 ML IJ (16:29)
[2024-10-22] MEDS: Normal Saline - Diluent 50 ML VIAL IJ (16:29)
--- NOTE | 2024-10-22 16:45 | DI.CT_ITS ---
Exam(s) CT CHEST PE CTA EXAM: CT CHEST PE CTA CLINICAL HISTORY: known left lung CA, worsening SOB. TECHNIQUE: Imaging Protocol: CT angiography of the chest was performed using pulmonary embolus protocol. Multi planar reconstructions were performed. CONTRAST MATERIAL: Intravenous: Omnipaque 350 Contrast volume: 100 cc COMPARISON: CR XR CHEST 2V PA LATERAL from 09/08/[address] CHEST PE CTA from 09/08/2024 FINDINGS: CHEST: PULMONARY ARTERIES: There are no obvious intraluminal filling defects to suggest acute pulmonary emboli. LUNGS: There is now collapse of the left upper lobe and loculated pleural effusion occupying the upper left hemithorax, this accounting for the density described on today's chest x-ray. This appears to been partial communication with the large amount of pleural effusion more inferiorly in the left hem ithorax. The lower aspect of the left pleural effusion has moderately decreased in size and this is related to the percutaneous pleural drainage catheter which is now present. In the opposite-left lung there is a non loculated small pleural effusion which was not previously present on the 09/08/2024 study. There is no significant infiltrate nor mass in the right lung. MEDIASTINUM: There is bilateral hilar adenopathy. There is also subcarinal adenopathy and right paratracheal adenopathy. CARDIAC: Heart size is upper normal. There is no pericardial effusion.Caliber of the thoracic aorta is within normal limits. No evidence of dissection. There is no significant shift of the interventricular septum. There is no reflux of IV contrast into the intrahepatic IVC. PARTIALLY VISUALIZED UPPERMOST ABDOMEN: There is no ascites in the partially visualized upper abdomen. OSSEOUS: No significant osseous lesions.No fractures evident.. IMPRESSION: 1. Compared to prior CT scan of 09/08/2024 there has been interval placement of a drainage catheter in the lower left pleural space. The size of the lower left hemithorax pleural effusion has moderately decreased but there is now prominent pleural effusion in the superior aspect of the left hemithorax which is associated with collapse of the left upper. I suspect this is the reason this patient is experiencing increasing shortness of breath.. If clinically indicated this partially loculated left upper pleural effusion can be drained by placement of a separate pigtail drainage catheter in the upper pleural space. There is also partial collapse of the left lower lobe again noted. 2. There is no evidence of acute pulmonary emboli. 3. Small right pleural effusion is now evident which was not previously present on 09/08/2024. Report called by myself to ER physician 10/22/2024 at 4:59 p.m. RADIATION DOSE DELIVERED: 84.94mGy.cm Total DLP DATA REPOSITORY: All CT scans at this facility are submitted to the National Radiology Data Registry (NRDR) Dose Index Registry (DIR) with the [employer] (A[employer]). RADIATION OPTIMIZATION: All CT scans at this facility use at least one of these dose optimization techniques: automated exposure control; mA and/or kV adjustment per patient size (includes targeted exams where dose is matched to clinical indication); or iterative reconstruction.
--- NOTE | 2024-10-22 17:46 | NUR.NOTE ---
Approx 125 cc output from pleurex L sided drained by vacuum device by son as done at home. Tolerated well.
[2024-10-22] MEDS: LORazepam 0.5 MG TAB PO (18:07)
[2024-10-22] MEDS: Carvedilol 3.125 MG TAB PO (19:10)
[2024-10-22] MEDS: FLUoxetine 20 MG CAP PO (19:50)
[2024-10-23] VITALS: PULSE 103; O2SAT 93
[2024-10-23 00:01] VITALS: BP 162/78; PULSE 102; O2SAT 92
[2024-10-23 00:10] VITALS: PULSE 103; O2SAT 94
[2024-10-23 01:14] VITALS: BP 160/80; PULSE 88; RESP 16; O2SAT 92
== END 2024-10-23 01:39 | disposition short-term general hospital (02) ==
PROVIDERS: Emergency Provider Student in an Organized Health Care Education/Training Program; PCP Family Medicine
DX: J90 Pleural effusion, not elsewhere classified (principal); R09.02 Hypoxemia; I48.91 Unspecified atrial fibrillation; I10 Essential (primary) hypertension; C34.92 Malignant neoplasm of unspecified part of left bronchus or lung; C79.89 Secondary malignant neoplasm of other specified sites; Z96.0 Presence of urogenital implants; Z99.81 Dependence on supplemental oxygen; Z79.01 Long term (current) use of anticoagulants
CPT/HCPCS: 36415; 71275; 80053; 99285; 71045; 85025; 99284; J3490

== ENCOUNTER 2024-10-25 03:36 | Outpatient (CLI) | payer MEDICARE, SELFPAY ==
[2024-10-25 07:51] LABS: Abs Immature Grans 0.13 10^3/uL (0.0-0.06); HCT 35.5 % (36.0-46.0); HGB 12.3 g/dL (11.2-15.7); Immature Grans % 0.7 %; MCH 29.3 pg (27.0-33.0); MCHC 34.6 % (32.0-36.0); MCV 85 fL (80-95); MPV 10.2 fL (8.0-11.0); Platelet Count 159 10^3/uL (130-400); RBC 4.20 10^6/uL (3.93-5.22); RDW 12.3 % (11.7-14.6); RDW-SD 37.1 fL; WBC 17.34 10^3/uL (4.4-10.8)
[2024-10-25 08:08] LABS: ALT 22 U/L (14-59); AST 25 U/L (15-37); Albumin 2.4 g/dL (3.4-5.0); Alkaline Phosphatase 116 U/L (46-116); Anion Gap 12.5 mmol/L (3-11); BUN 26 mg/dL (7-18); Bilirubin, Total 0.4 mg/dL (0.2-1.0); CO2 22.5 mmol/L (21.0-32.0); Calcium 8.8 mg/dL (8.5-10.1); Chloride 98 mmol/L (98-107); Estimated GFR 53.72 (mL/min/1.73m2); Glucose 192 mg/dL (74-106); Magnesium 1.6 mg/dL (1.8-2.4); Potassium 3.5 mmol/L (3.5-5.1); Sodium 133 mmol/L (136-145); Total Protein 6.4 g/dL (6.4-8.2)
== END 2024-10-25 03:37 | disposition home or self-care (01) ==
LOC: LBO 03:36
PROVIDERS: PCP Family Medicine; Visit Provider Internal Medicine Medical Oncology
DX: J91.0 Malignant pleural effusion (principal); C79.51 Secondary malignant neoplasm of bone; C78.2 Secondary malignant neoplasm of pleura; Z79.899 Other long term (current) drug therapy
CPT/HCPCS: 36415; 80053; 83735; 85025

== ENCOUNTER 2024-11-01 12:09 | Outpatient (REF) | payer MEDICARE, SELFPAY ==
[2024-11-01 12:31] LABS: ALT 30 U/L (14-59); AST 37 U/L (15-37); Albumin 1.9 g/dL (3.4-5.0); Alkaline Phosphatase 136 U/L (46-116); Anion Gap 5.0 mmol/L (3-11); BUN 18 mg/dL (7-18); Bilirubin, Total 0.5 mg/dL (0.2-1.0); CO2 29.0 mmol/L (21.0-32.0); Calcium 8.3 mg/dL (8.5-10.1); Chloride 97 mmol/L (98-107); Estimated GFR 95.90 (mL/min/1.73m2); Glucose 115 mg/dL (74-106); Magnesium 1.8 mg/dL (1.8-2.4); Potassium 4.6 mmol/L (3.5-5.1); Sodium 131 mmol/L (136-145); Total Protein 5.5 g/dL (6.4-8.2)
[2024-11-01 12:36] LABS: Abs Immature Grans 0.01 10^3/uL (0.0-0.06); HCT 35.6 % (36.0-46.0); HGB 12.9 g/dL (11.2-15.7); Immature Grans % 0.3 %; MCH 30.4 pg (27.0-33.0); MCHC 36.2 % (32.0-36.0); MCV 84 fL (80-95); MPV 11.9 fL (8.0-11.0); Platelet Count 57 10^3/uL (130-400); RBC 4.24 10^6/uL (3.93-5.22); RDW 11.9 % (11.7-14.6); RDW-SD 35.9 fL; WBC 3.72 10^3/uL (4.4-10.8)
== END 2024-11-01 12:10 | disposition home or self-care (01) ==
LOC: LBN 12:09
PROVIDERS: PCP Family Medicine; Visit Provider Internal Medicine Medical Oncology
DX: C79.51 Secondary malignant neoplasm of bone (principal); C78.2 Secondary malignant neoplasm of pleura; J91.0 Malignant pleural effusion; Z79.899 Other long term (current) drug therapy
CPT/HCPCS: 80053; 83735; 85025

== ENCOUNTER 2024-11-08 01:48 | Outpatient (CLI) | payer MEDICARE, SELFPAY ==
[2024-11-08 07:43] LABS: Abs Immature Grans 0.00 10^3/uL (0.0-0.06); HCT 34.4 % (36.0-46.0); HGB 12.3 g/dL (11.2-15.7); Immature Grans % 0.0 %; MCH 29.6 pg (27.0-33.0); MCHC 35.8 % (32.0-36.0); MCV 83 fL (80-95); MPV 11.0 fL (8.0-11.0); RBC 4.15 10^6/uL (3.93-5.22); RDW 11.6 % (11.7-14.6); RDW-SD 35.0 fL; WBC 3.70 10^3/uL (4.4-10.8)
[2024-11-08 08:01] LABS: Platelet Count 90 10^3/uL (130-400); RBC Morphology Normal
[2024-11-08 08:09] LABS: ALT 25 U/L (14-59); AST 27 U/L (15-37); Albumin 1.7 g/dL (3.4-5.0); Alkaline Phosphatase 180 U/L (46-116); Anion Gap 8.1 mmol/L (3-11); BUN 19 mg/dL (7-18); Bilirubin, Total 0.4 mg/dL (0.2-1.0); CO2 22.9 mmol/L (21.0-32.0); Calcium 8.2 mg/dL (8.5-10.1); Chloride 102 mmol/L (98-107); Estimated GFR 92.41 (mL/min/1.73m2); Glucose 140 mg/dL (74-106); Magnesium 1.6 mg/dL (1.8-2.4); Potassium 3.7 mmol/L (3.5-5.1); Sodium 133 mmol/L (136-145); Total Protein 5.3 g/dL (6.4-8.2)
== END 2024-11-08 01:49 | disposition home or self-care (01) ==
LOC: LBO 01:49
PROVIDERS: PCP Family Medicine; Visit Provider Internal Medicine Medical Oncology
DX: Z79.899 Other long term (current) drug therapy (principal); J91.0 Malignant pleural effusion; C79.51 Secondary malignant neoplasm of bone; C78.2 Secondary malignant neoplasm of pleura
CPT/HCPCS: 36415; 80053; 83735; 85025

== ENCOUNTER 2024-12-16 11:02 | Emergency (ER) | payer MEDICARE, SELFPAY ==
[2024-12-16] VITALS (16 sets, daily range): BP systolic 116–144; BP diastolic 26–94; PULSE 85–102; RESP 16–20; TEMP 36.4–36.8; O2SAT 97–100
--- NOTE | 2024-12-16 11:23 | W.ED.GENAD ---
Discharge Plan Disposition Patient Disposition: Home Condition: Stable Discharge Details Clinical Impression: Pleural effusion, Malignant pleural effusion Primary Care Provider: Celia Rhodes ED Provider: Carmen Goldman Jackson Meds and New Rx's Prescriptions: Continued fluoxetine 40 mg capsule 40 mg PO DAILY Qty: 90 3RF ondansetron 8 mg tablet,disintegrating 8 mg PO Q8H PRN (Reason: nausea and vomiting) Qty: 90 0RF levothyroxine 50 mcg tablet 75 mcg PO DAILY Patient Comments: TAKE ONE TABLET BY MOUTH EVERY DAY acetaminophen [Pain Reliever (acetaminophen)] 650 mg suppository 650 mg MN Q6H PRN (Reason: fever, mild pain) Qty: 6 0RF morphine concentrate 100 mg/5 mL (20 mg/mL) solution See Rx Instructions PO .COMPLEX MDD 24 ml Qty: 30 0RF Rx Instructions: 0.25 ML to 1 ML under tongue or orally every 1-4 hours; as needed for moderate to severe pain or shortness of breath prochlorperazine maleate [Compazine] 10 mg tablet 10 mg PO Q6H PRN (Reason: nausea and vomiting) Qty: 6 0RF bisacodyl [Dulcolax (bisacodyl)] 10 mg suppository 10 mg MN DAILY PRN (Reason: constipation) Qty: 2 0RF Rx Instructions: no bowel movement in 3 days hyoscyamine sulfate 0.125 mg tablet See Rx Instructions PO Q4H PRN (Reason: excessive salivation) Qty: 24 0RF Rx Instructions: 1-2 Tablets orally every 4 hours PRN; lorazepam 1 mg tablet 1 mg PO Q4H PRN (Reason: anxiety, dyspnea, nausea) Qty: 6 0RF Rx Instructions: under the tongue or orally haloperidol lactate 2 mg/mL concentrate 1 mg PO Q6H PRN (Reason: agitation) Qty: 15 0RF Rx Instructions: under tongue or orally lorazepam 0.5 mg tablet 0.5 mg PO TID Qty: 30 0RF prednisone 5 mg tablet 5 mg PO DAILY Qty: 14 4RF Rx Instructions: take one daily with food may increase to 2 per day if needed Eliquis 5 mg Tablet 5 mg PO BID carvedilol 3.125 mg Tablet 3.125 mg PO BID hydrochlorothiazide 12.5 mg capsule 12.5 mg PO DAILY Patient Comments: TAKE ONE CAPSULE BY MOUTH EVERY DAY Discharge Instructions Instructions: How to Care for a Pleural Catheter Additional Instructions: TPA was injected into your catheter today which is a medicine that helps blood not to clot. Please follow-up with [facility] or Dr. Perez if any more complications occur. Return to the ER or [facility] oncology team for any worsening shortness of breath, fever or chills, worsening chest pain or concerns. Thank you for allowing us to care for you today. Thank you for being patient with us. Referrals: PULMONOLOGY,[facility] [OTHER, Pulmonology] Cleia Rhodes [Primary Care Provider, Medicine] - Return if symptoms worsen Wyatt Perez MD [ [facility] STAFF PHYSICIAN, Surgery] - 1 week Referral Note: ER follow up if needed Clinical Impression: Malignant pleural effusion HPI General Mode of arrival: wheelchair. Date/Time Provider Initiated Documentation: 12/16/24 11:23. Limitations to Documentation: no limitations. Information obtained by: patient, family (Caregiver), RN notes reviewed and old records reviewed. HPI Narrative: 69-year-old female presents to the ER with a chief complaint of possible Pleurx drain plugged. The normal output is approximately 200 to 300 cc yesterday output was only 50 cc. Patient has clear lung sounds to auscultation on the right, small amount of rhonchi noted on the left, patient states that her breathing is a little funny but no significant shortness of breath, increased work of breathing tachypnea noted on initial exam. O2 sat is 98% on room air. Patient is on hospice does have a history of metastatic lung cancer, atrial fibrillation, hypothyroidism. Related Data Home Medications ?Medication ?Instructions ?Recorded ?Confirmed apixaban 5 mg tablet (Eliquis) 5 mg PO BID 01/22/19 12/16/24 carvedilol 3.125 mg tablet 3.125 mg PO BID 01/28/19 12/16/24 hydrochlorothiazide 12.5 mg capsule 12.5 mg PO DAILY 09/10/24 12/16/24 levothyroxine 50 mcg tablet 75 mcg PO DAILY 09/21/24 12/16/24 ondansetron 8 mg disintegrating 8 mg PO Q8H PRN nausea and 11/24/24 12/16/24 tablet vomiting #90 tabs fluoxetine 40 mg capsule 40 mg PO DAILY #90 caps 11/30/24 12/16/24 acetaminophen 650 mg rectal 650 mg MN Q6H PRN fever, mild pain 12/08/24 12/16/24 suppository (Pain Reliever #6 ea (acetaminophen)) bisacodyl 10 mg rectal suppository 10 mg MN DAILY PRN constipation #2 12/08/24 12/16/24 (Dulcolax (bisacodyl)) ea haloperidol lactate 2 mg/mL oral 1 mg (0.5 mL) PO Q6H PRN agitation 12/08/24 12/16/24 concentrate #15 mL hyoscyamine sulfate 0.125 mg tablet See Rx Instructions PO Q4H PRN 12/08/24 12/16/24 excessive salivation #24 tabs lorazepam 1 mg tablet 1 mg PO Q4H PRN anxiety, dyspnea, 12/08/24 12/16/24 nausea #6 tabs morphine concentrate 100 mg/5 mL See Rx Instructions PO .COMPLEX 12/08/24 12/16/24 (20 mg/mL) oral solution #30 mL prochlorperazine maleate 10 mg 10 mg PO Q6H PRN nausea and 12/08/24 12/16/24 tablet (Compazine) vomiting #6 tabs lorazepam 0.5 mg tablet 0.5 mg PO TID #30 tabs 12/14/24 12/16/24 prednisone 5 mg tablet 5 mg PO DAILY #14 tabs 12/14/24 12/16/24 Previous Rx's ?Medication ?Instructions ?Recorded ondansetron 8 mg disintegrating 8 mg PO Q8H PRN nausea and 11/24/24 tablet vomiting #90 tabs fluoxetine 40 mg capsule 40 mg PO DAILY #90 caps 11/30/24 acetaminophen 650 mg rectal 650 mg MN Q6H PRN fever, mild pain 12/08/24 suppository (Pain Reliever #6 ea (acetaminophen)) bisacodyl 10 mg rectal suppository 10 mg MN DAILY PRN constipation #2 12/08/24 (Dulcolax (bisacodyl)) ea haloperidol lactate 2 mg/mL oral 1 mg (0.5 mL) PO Q6H PRN agitation 12/08/24 concentrate #15 mL hyoscyamine sulfate 0.125 mg tablet See Rx Instructions PO Q4H PRN 12/08/24 excessive salivation #24 tabs lorazepam 1 mg tablet 1 mg PO Q4H PRN anxiety, dyspnea, 12/08/24 nausea #6 tabs morphine concentrate 100 mg/5 mL See Rx Instructions PO .COMPLEX 12/08/24 (20 mg/mL) oral solution #30 mL prochlorperazine maleate 10 mg 10 mg PO Q6H PRN nausea and 12/08/24 tablet (Compazine) vomiting #6 tabs lorazepam 0.5 mg tablet 0.5 mg PO TID #30 tabs 12/14/24 prednisone 5 mg tablet 5 mg PO DAILY #14 tabs 12/14/24 Allergies Allergy/AdvReac Type Severity Reaction Status Date / Time Sulfa (Sulfonamide Allergy Intermediate Swelling/Ed Unverified 12/16/24 11:10 Antibiotics) soha General Stated Complaint: GenMedical ELAINE: 3 Review of Systems Constitutional Constitutional: Reports as per HPI Cardiovascular Cardiovascular: Reports dyspnea Respiratory Respiratory: Denies cough, Denies hemoptysis and Reports dyspnea Gastrointestinal Gastrointestinal: Reports nausea Exam Chest Chest: no crepitus, No rash and other (Drain noted to left lower anterior chest wall, no surrounding erythema, ) Resp Effort & Inspection: normal respiratory effort, able to speak in complete sentences, no audible wheezes, no grunting, not labored, no nasal flaring, no pursed lip breathing, no respiratory distress, no stridor, not tachypneic, no tripod positioning and no use of accessory muscles Auscultation: rhonchi (Mild) left lower and no wheezes Cardio Palpation: normal PMI Rate: regular rate Rhythm: regular rhythm Heart Sounds: S1 normal and S2 normal Course Vital Signs Vital signs: Vital Signs Temperature 36.4 C L 12/16/24 11:05 Pulse 92 H 12/16/24 11:05 Respiratory Rate 16 12/16/24 11:05 Blood Pressure 125/79 12/16/24 11:05 Pulse Oximetry 98 12/16/24 11:05 Temperature 36.4 C L 12/16/24 11:08 Pulse 92 H 12/16/24 11:08 Respiratory Rate 16 12/16/24 11:08 Blood Pressure 125/79 12/16/24 11:08 Pulse Oximetry 98 12/16/24 11:08 Oxygen Delivery Method Nasal Cannula 12/16/24 11:08 Oxygen Flow Rate 3 12/16/24 11:08 Medical Decision Making 69-year-old female presents to the ER with a chief complaint of possible Pleurx drain plugged. The normal output is approximately 200 to 300 cc yesterday output was only 50 cc. Patient has clear lung sounds to auscultation on the right, small amount of rhonchi noted on the left, patient states that her breathing is a little funny but no significant shortness of breath, increased work of breathing tachypnea noted on initial exam. O2 sat is 98% on room air. Patient is on hospice does have a history of metastatic lung cancer, atrial fibrillation, hypothyroidism. 1222: Dr. Perez paged. Please see x-ray result below. 1229: Spoke with Dr. Perez he was able to personally review the x-ray images he recommends follow-up in the general surgery office in 1 week he also recommends to wait a couple days and try to redrain it. As long as patient has no increased work of breathing or tachypnea or respiratory symptoms it is reasonable to have patient follow-up. Patient is hemodynamically stable here in the emergency department at this time. Upon further discussion with caregiver and discussion of recommended plan of care, they usually have this drain declogged at [facility] with a Cathflo patient does endorse some chest heaviness and nausea upon further questioning. Will discuss further recommendations with Dr. Perez. Dr. Perez here at bedside to speak with patient who recommends the 2 mg tPA Cathflo infusion, will observe in the emergency department for approximately an hour for complications such as bleeding. Did okay this with the ED charge nurse. 1406: Medication received from pharmacy, medical staff assistant did call Dr. Perez who graciously agrees to instill medication. Patient and caregiver aware of POC and are in agreement. 1512: On patient reevaluation she is speaking in full sentences, breathing eupneic. O2 sat 98% blood pressure 116/51. Has no complaints at this time. Pateint written up for DC, awaiting re-eval and completion of procedure by Dr. Perez. 1537: Dr. Perez was able to drain 250ml out, no complications. Discharge and follow up care also discussed with patient by him. Patient to be DC'd with caregiver. This text was generated using [employer] system, please disregard any oddities of phrase or misspellings. Medical Records Medical records reviewed: Yes I reviewed the patient's medical records. Imaging Data Radiologic Study: Imaging: X-Ray Radiologist's impression: EXAM: XR CHEST 2V PA LATERAL CLINICAL HISTORY: Possible pleurex Drain clogged Left lower lobe TECHNIQUE: 2D digital imaging was performed of the chest. Two images were obtained. PA and lateral views were obtained. COMPARISON: CR XR CHEST 2V PA LATERAL from 09/21/[address] CHEST PE CTA from 10/22/2024 CR XR PORTABLE CHEST AP from 10/22/2024 FINDINGS: There is again seen a pleural drain in the left lung base. There has been interval placement of a right port. The tip of the catheter is in good position at the junction of the superior vena cava and right atrium. MEDIASTINUM: Normal. HEART: Normal. PULMONARY VASCULATURE: Normal. LUNGS: The right lung is clear. There has been interval decrease in size of the loculated fluid collection in the left lung apex. There has been and mild improved aeration of the left hemithorax with persistent opacities in the left lower lobe. There is persistent blunting of the left costophrenic angle consistent with a pleural effusion. PLEURAL SPACE: No pleural effusion or pneumothorax. BONE:Within normal limits for the patient's age. OTHER FINDINGS:Normal. IMPRESSION: 1. Overall the appearance of the lung appears improved compared to the examination from 10/22/2024. There has been a decrease in size of the loculated fluid collection in the left lung apex. There also appears to be slight increased aeration of the left lung. 2. The right lung remains clear. 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) Endometrial thickening on ultrasound (Acute) Benign endo bx 09/14/24 Hypertensive urgency (Acute) Pleural effusion (Acute) Hypothyroidism (Chronic) Medical History (Updated 12/16/24 @ 12:33 by Carmen Goldman NP) Tubular adenoma of colon Hx of hemorrhoids HTN (hypertension) Anxiety Atrial fibrillation Surgical History (Updated 09/21/24 @ 09:11 by Leonor Perez RN) History of colonoscopy with polypectomy (~10/08/18) Steven Conrad H/O breast surgery Family History Other Cancer Heart disease Hypertension Social History Smoking/Tobacco Use Status: Never Smoking risk assessment performed?: Yes Alcohol Intake: never Drug use: Never Substance use type: does not use Housing: house Do you feel safe at home: Yes Do you feel safe in your relationship?: Yes Female Reproductive History Menstrual Menopause type: natural (11/2008) History History 5 Para 3 Hx # Term Pregnancies 3 Multiple births Hx # Pregnancies Ectopic pregnancies AB induced Hx Number of Living Children 3 AB spontaneous 2 Past Pregnancies Del. Date GA/Weeks # Preg Succ Route Wgt Sex Labor Lgth Anesthesia Location Prov Complic 06/22/73 Yes 4706.021 g Female [place] 05/25/75 Yes 4592.623 g Female [place] 10/19/84 Yes 3572.04 g Male [facility] Delivery Date: 06/22/73 Last Updated by: ELVIRA Oconnor Delivery Date: 05/25/75 Last Updated by: ELVIRA Oconnor Delivery Date: 10/19/84 Last Updated by: ELVIRA Oconnor
--- NOTE | 2024-12-16 11:30 | DI.RAD_ITS ---
Exam(s) XR CHEST 2V PA LATERAL EXAM: XR CHEST 2V PA LATERAL CLINICAL HISTORY: Possible pleurex Drain clogged Left lower lobe TECHNIQUE: 2D digital imaging was performed of the chest. Two images were obtained. PA and lateral views were obtained. COMPARISON: CR XR CHEST 2V PA LATERAL from 09/21/[address] CHEST PE CTA from 10/22/2024 CR XR PORTABLE CHEST AP from 10/22/2024 FINDINGS: There is again seen a pleural drain in the left lung base. There has been interval placement of a right port. The tip of the catheter is in good position at the junction of the superior vena cava and right atrium. MEDIASTINUM: Normal. HEART: Normal. PULMONARY VASCULATURE: Normal. LUNGS: The right lung is clear. There has been interval decrease in size of the loculated fluid collection in the left lung apex. There has been and mild improved aeration of the left hemithorax with persistent opacities in the left lower lobe. There is persistent blunting of the left costophrenic angle consistent with a pleural effusion. PLEURAL SPACE: No pleural effusion or pneumothorax. BONE:Within normal limits for the patient's age. OTHER FINDINGS:Normal. IMPRESSION: 1. Overall the appearance of the lung appears improved compared to the examination from 10/22/2024. There has been a decrease in size of the loculated fluid collection in the left lung apex. There also appears to be slight increased aeration of the left lung. 2. The right lung remains clear. DATA REPOSITORY: RADIATION DOSE DELIVERED:
[2024-12-16] MEDS: Alteplase 2 MG VIAL UD (14:11)
[2024-12-16] MEDS: Normal Saline 10 ML VIAL (14:11)
[2024-12-16] MEDS: Normal Saline-STERILE FIELD 0.9% 10 ML SYR ×2 (14:17)
--- NOTE | 2024-12-16 14:38 | W.SURGCON ---
Date of service: 12/17/24 Time of Service: 15:55 Assessment and Plan Assessment and plan (1) Pleural effusion: Status: Acute Assessment and plan: I talked with Roselia and her family for little while regarding the natural history of her Pleurx catheter. Generally, it drains somewhere between 204 100 mL/day. During the last attempted drainage, however, it was only about 50 cc of relatively thin fluid. This is consistent with previous episodes where her tube has been clogged. We talked about different options, but after discussion, they were in agreement with a trial of Cathflo to see if that could improve drainage. She has had this done on 2 other occasions at [facility]. I began by removing all of the dressings from her Pleurx catheter. The tube itself looked as I would expect. It was intact, there was no evidence of any damage to the tube. There was minimal fibrinous exudate within it. I then removed the, cleaned to the port, and attempted gentle irrigation of the tube with normal saline. With minimal resistance at first, the tube then flushed and withdrew some serous appearing fluid. I then instilled 6 mL of reconstituted alteplase into the tube, and recapped it. This was allowed to dwell for 1 hour. The catheter was then aspirated. Bowie-colored serous fluid easily withdrew from the tubing. The Pleurx catheter was then attached to the Pleurx drainage device, and approximately 250 mL of pleural effusion was drained. Roselia said she felt a little better after the procedure. She tolerated it fine. I then cleansed the Pleurx catheter, recapped it, and redressed it according to the manufactures instructions. Since this is a palliative therapy, I am not sure that there is any benefit to daily drainage. I suggested Roselia switch to a less frequent regimen, and attempt drainage as needed for dyspnea, or chest discomfort. I am happy to see her again at any time if she has any other trouble with the tube. History of Present Illness History of Present Illness Chief Complaint: Clogged Pleurx catheter Narrative: Roselia is 69 years old. She has metastatic non-small cell lung cancer. She has a palliative Pleurx catheter. She typically drains 2 to 300 mL from the pleural space every day. Most recently, only about 50 mL since drained. She has a sensation of something a little odd in her chest. This is similar to previous episodes where the Pleurx catheter was clogged. She came to the emergency department for evaluation. Chest x-ray showed some loculated pleural effusion. Catheter itself does have some fibrinous exudate in it. 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) Endometrial thickening on ultrasound (Acute) Benign endo bx 09/14/24 Hypertensive urgency (Acute) Pleural effusion (Acute) Hypothyroidism (Chronic) Medical History (Updated 12/16/24 @ 12:33 by Carmen Goldman NP) Tubular adenoma of colon Hx of hemorrhoids HTN (hypertension) Anxiety Atrial fibrillation Surgical History (Updated 09/21/24 @ 09:11 by Leonor Perez RN) History of colonoscopy with polypectomy (~10/08/18) Steven Conrad H/O breast surgery Family History Other Cancer Heart disease Hypertension Social History Smoking/Tobacco Use Status: Never Smoking risk assessment performed?: Yes Alcohol Intake: never Drug use: Never Substance use type: does not use Housing: house Do you feel safe at home: Yes Do you feel safe in your relationship?: Yes Female Reproductive History Menstrual Menopause type: natural (11/2008) History History 5 Para 3 Hx # Term Pregnancies 3 Multiple births Hx # Pregnancies Ectopic pregnancies AB induced Hx Number of Living Children 3 AB spontaneous 2 Past Pregnancies Del. Date GA/Weeks # Preg Succ Route Wgt Sex Labor Lgth Anesthesia Location Prov Complic 06/22/73 Yes 10 lb 6 oz Female [place] 05/25/75 Yes 10 lb 2 oz [place] 10/19/84 Yes 7 lb 14 oz Male [facility] Delivery Date: 06/22/73 Last Updated by: ELVIRA Oconnor Delivery Date: 05/25/75 Last Updated by: ELVIRA Oconnor Delivery Date: 10/19/84 Last Updated by: Paty Thibodeaux RN Matty Exam Resp Other: Coarse lung sounds on the left, but audible down through the base Results Last Vital Signs Temp 97.5 F L 12/16/24 11:08 Pulse 85 12/16/24 14:31 Resp 16 12/16/24 11:30 BP 144/68 H 12/16/24 14:31 Pulse Ox 98 12/16/24 14:31 Imaging Chest x-ray: image reviewed
== END 2024-12-16 15:53 | disposition home or self-care (01) ==
PROVIDERS: Emergency Provider Registered Nurse Emergency; PCP Family Medicine
DX: C78.00 Secondary malignant neoplasm of unspecified lung (principal); J91.0 Malignant pleural effusion
CPT/HCPCS: 36593; 96523; 99283; 99284; 71046; 99285; J2997

== ENCOUNTER 2024-12-17 11:13 | Outpatient (RCR) | payer MEDICARE, SELFPAY ==
[2024-12-17] MEDS: Normal Saline Flush 10 ML SYR IVP (11:40)
== END 2024-12-19 23:59 | disposition home or self-care (01) ==
LOC: INF 11:13
PROVIDERS: PCP Family Medicine; Visit Provider Internal Medicine Medical Oncology
DX: Z45.2 Encounter for adjustment and management of vascular access device (principal)
CPT/HCPCS: 96523